=== PATIENT | female | born 1940 | race Caucasian/White ===

== ENCOUNTER → 2017-12-28 09:18 | Outpatient (CLI) | payer MEDICARE, OTHER, SELFPAY ==
--- NOTE | 2017-12-28 10:00 | MRI_ITS ---
STUDY: MRI LEFT KNEE REASON FOR EXAM: Anterior knee pain, instability, no specific injury. TECHNIQUE: Standardized fat and water weighted pulse sequences were obtained in all 3 orthogonal planes. COMPARISON: Radiographs 07/14/2017. FINDINGS: There is a horizontal tear of the inferior articular surface/free margin of the posterior horn of the medial meniscus (proton-density sagittal images 11-15) and tear/degeneration of the posterior body of the medial meniscus (T2 coronal images 16, 17). There is arthrosis of the medial femorotibial compartment with chondral thinning (T2 sagittal image 9) and slight subchondral bone edema. Normal medial collateral ligamentous complex (MCL). Normal distal semimembranosus, gracilis and semitendinosus tendons. Normal lateral meniscus. Normal hyaline cartilage of the lateral femorotibial compartment. Normal lateral femoral condyle and tibial plateau. Normal proximal tibiofibular articulation. Normal lateral collateral (fibular) ligament. Normal popliteus tendon. Normal biceps femoris tendon. Normal anterior cruciate ligament (ACL). Normal posterior cruciate ligament (PCL). Normal congruent patellofemoral articulation. Normal hyaline cartilage of the patellofemoral compartment. Normal medial and lateral patellar retinaculum. Normal quadriceps tendon. Normal patellar tendon. Normal Hoffa's fat pad. There is a small joint effusion. There is a thin medial patellar plica. There is a popliteal cyst measuring 5 cm in length (T2 sagittal images 7-10). There is mild edema in the subcutis adipose space. The otherwise visualized osseous structures are unremarkable. MRI/Lower Ext Joint Only (Routine) IMPRESSION: Medial meniscal tear/degeneration. Arthrosis of the medial femorotibial compartment. Small joint effusion. Popliteal cyst. Electronically Signed: Sandip Harris MD at 11:39 EST Tel , Service support ,
== END ==
PROVIDERS: Family Provider Family Medicine; PCP Family Medicine; Visit Provider Orthopaedic Surgery
DX: M25.569 Pain in unspecified knee (principal); M71.20 Synovial cyst of popliteal space [Baker], unspecified knee; M25.469 Effusion, unspecified knee
CPT/HCPCS: 73721

== ENCOUNTER → 2018-01-26 12:03 | Outpatient (CLI) | payer MEDICARE, OTHER, SELFPAY ==
--- NOTE | 2018-01-26 12:10 | RAD_ITS ---
STUDY: X-RAY CHEST REASON FOR EXAM: Female, 77 years old. Shortness of breath. TECHNIQUE: PA and lateral views of the chest. COMPARISON: 09/26/2013. FINDINGS: The lungs are somewhat hyperinflated. No focal infiltrate is seen. There is no demonstrated pleural abnormality. Normal size heart. Normal mediastinum and demario. Normal visualized pulmonary arteries. There is mild atherosclerotic tortuosity of the aortic arch and descending thoracic aorta. There are mild degenerative changes of the visualized thoracic spine. Normal visualized ribs, clavicles, and shoulders. There is no demonstrated abnormality of the visualized soft tissue structures of the upper abdomen. RAD/Chest PA and Lateral IMPRESSION: No active pulmonary disease. Electronically Signed: Andi Bonilla MD at 12:26 EDT Tel , Service support ,
== END ==
PROVIDERS: Family Provider Family Medicine; PCP Family Medicine; Visit Provider Family Medicine
DX: J44.1 Chronic obstructive pulmonary disease with (acute) exacerbation (principal)
CPT/HCPCS: 71046

== ENCOUNTER → 2018-09-03 12:26 | Outpatient (CLI) | payer MEDICARE, OTHER, SELFPAY ==
[2018-08-08 10:09] VITALS: BP 206/100; PULSE 99; RESP 16; TEMP 36.7; O2SAT 99; BMI 32.1
== END ==
PROVIDERS: Family Provider Family Medicine; PCP Family Medicine; Referring Provider Orthopaedic Surgery; Visit Provider Orthopaedic Surgery
PROC: (CPT 29870; principal; 2018-08-08 11:05)
DX: Z00.00 Encounter for general adult medical examination without abnormal findings (principal)
CPT/HCPCS: J7120; J3490

== ENCOUNTER 2018-10-15 09:56 | Day surgery (SDC) | payer MEDICARE, OTHER, SELFPAY ==
[2018-08-08 10:09] VITALS: BMI 32.1
[2018-10-15 10:18] VITALS: BP 146/96; PULSE 105; RESP 16; TEMP 37.3; O2SAT 94; BMI 31.8
[2018-10-15] MEDS: Cefazolin 2 GM in 0.9% Normal Saline 100 ML IV (12:22)
--- NOTE | 2018-10-15 13:13 | DCINST_ITS ---
Discharge Diet: No Restrictions - wbat left leg, remove dressings in 4 days and apply bandaids to incision sites, may get incision wet after 4 days, follow up in 2 weeks, call with concerns Discharge Activity: May Not Drive May shower in (days): 1 Ice area for (Minutes): 20 - Every hour while awake. Weight Bearing Status: Weight bearing as tolerated Keep extremity elevated above heart level: Operative Extremity Call your doctor if your incision/area has: Continuous Slow Oozing, Sudden Increased Bleeding, Increased Pain/ Swelling, Increased Redness, Foul Smelling Discharge Call your doctor if you observe: Fever of 101 or Higher, Coldness, Increased Pain, Numbness or Tingling, Change in Color, Calf discomfort Allergies/Adverse Reactions: Allergies No Known Allergies Allergy (Verified 10/12/18 11:59) Medications to take at Discharge levothyroxine 75 mcg tablet 75 mcg PO DAILY 12/14/17 multivitamin tablet 1 tab PO QDAY 12/14/17 Budesonide/Formoterol 160/4.5 [Symbicort 160/4.5 Mcg Inhaler (SP)] 2 puff INHALATION QHS 08/01/18 losartan 100 mg-hydrochlorothiazide 12.5 mg tablet 1 tab PO DAILY 10/04/18 Primary Care Physician: Katherin Aguirre MD [Primary Care Provider] - Test Results: Test results from this visit will be discussed in further detail at your follow- up appointment, if applicable. Please Follow Up With: Faviola Gamez, - [phone]
--- NOTE | 2018-10-15 13:13 | PCM.OPRPT ---
Report of Operation Date of Procedure: 10/15/18 Pre-Operative Diagnosis: left knee osteoarthritis, medial and lateral meniscus tears, synovitis Post-Operative Diagnosis: same Surgery/Procedure Performed:: salk, pmm, plm, extensive synovectomy boarding kennel or cattery operator: Hugo Ramos Type of Anesthesia:: General Anesthesiologist: Abdulaziz Atwood Estimated Blood Loss (mL): min Fluids Replaced: 1400cc lr Description of Procedure: Preop note Patient is a 77-year-old female well-known to me in clinic. Patient has left medial knee pain instability locking and clicking. MRI confirms degenerative disease of the left knee as well as an unstable medial meniscus tear. Risks benefits and alternatives surgery discussed with patient. Risks include but not limited to blood loss, blood clot, infection, neurovascular injury, failure procedure, loss of life and loss of limb. Patient is aware would like proceed with left knee arthroscopy repair is indicated. Please also note that we did discuss the patient is most likely a candidate for total knee arthroplasty however patient states she is not ready for that at this time would like to attempt a knee arthroscopy to buy her some time. Operative note Patient seen and examined preoperative holding area. Left knee was marked. Patient brought to the operative room placed supine on the operating table. Anesthesia signed and antibiotics were measured. The left leg was prepped and draped in usual sterile fashion with tourniquet around her upper thigh. All bony promises well-padded SCDs placed on her contralateral limb. We marked out her incisions for anterior lateral anteromedial portal placement. The left leg was then elevated exsanguinated tourniquet was raised her pressure of 2 3250 to start and then 300 midway through the case that she was bleeding her blood pressure is a little high. Timeout was performed. Created an anterior lateral portal with an 11 blade. We then medial to the able to visualize the patella femoral joint. She had extensive synovitis anterior medial and anterior lateral. We created an anterior medial portal under direct visualization. We resected the synovitis in the anterior lateral anteromedial gutters extensively with a shaver and a burner. We then were able to visualize the unstable medial meniscus tear. She had a mid body meniscus tear as well as a posterior horn as well as interstitial interbody meniscus tear extending from the posterior horn to the mid body. She also had grade 4 eburnated changes on the tibial plateau medially that was about a 3 x 2 cm lesion as well as had chondral grade 3 chondral malacia throughout her entire lateral femoral condyle and a kissing lesion on the left medial aspect of the medial femoral condyle as well. Her ACL was intact as well as her PCL. Her lateral femoral condyle lateral tibial plateau were intact stable probing she had an unstable degenerative tear at the mid body of the lateral meniscus which was debrided with a shaver and a basket to a stable rim. We then reinserted a probe in both medial lateral meniscus to ensure that they were stable to probing which they were. We irrigated the knee with copious amounts of sterile saline tourniquet was dropped for total working time of 35 minutes. Sterile dressings during the portals were closed with interrupted 4-0 nylon and sterile dressings were applied. She tolerated tolerated procedure well there are no comp occasions transferred to recovery room in stable condition. Next Postoperative note Weight-bear as tolerated Prescription the hospital pharmacy next We will give pictures to patient in 2 weeks Call with increased pain numbness tingling or further issues arise next This note was generated with [employer] dictation software. It may contain incorrect words, spelling, and punctuation that were not noted in checking the note before signing.
[2018-10-15] MEDS: Bupiv/Epi 0.5% Mpf 30 ML Vial (13:16)
[2018-10-15] MEDS: Mupirocin Ointment 22gm Tube 1 APPLIC (13:18)
[2018-10-15 13:31] VITALS: BP 146/96; BP 158/77; PULSE 85; RESP 16; TEMP 36.1; O2SAT 100
[2018-10-15 13:45] VITALS: BP 146/96; BP 151/84; PULSE 88; RESP 16; O2SAT 100
[2018-10-15 14:00] VITALS: BP 146/96; BP 162/76; BP 171/87; PULSE 88; PULSE 90; RESP 16; TEMP 36.7; O2SAT 100; O2SAT 99
--- NOTE | 2018-10-15 14:15 | SUR.PHASEI ---
PACU DISCHARGE SUMMARY DOCUMENTED AT 1415, UNABLE TO EDIT TIME
[2018-10-15 15:20] VITALS: BP 146/96; BP 152/78; PULSE 94; RESP 16; TEMP 37.1; O2SAT 97
== END 2018-10-15 15:35 | disposition home or self-care (01) ==
LOC: SDC 09:58 → AC 09:59
PROVIDERS: Family Provider Family Medicine; PCP Family Medicine; Referring Provider Orthopaedic Surgery; Visit Provider Orthopaedic Surgery
PROC: (CPT 29870; principal; 2018-10-15 11:15)
DX: M17.12 Unilateral primary osteoarthritis, left knee (principal); M77.12 Lateral epicondylitis, left elbow; M23.307 Other meniscus derangements, unspecified meniscus, left knee; M65.9 Synovitis and tenosynovitis, unspecified; G47.61 Periodic limb movement disorder; J44.9 Chronic obstructive pulmonary disease, unspecified; Z87.891 Personal history of nicotine dependence
CPT/HCPCS: 01400; 29881; J7120

== ENCOUNTER → 2019-02-21 15:25 | Outpatient (CLI) | payer MEDICARE, OTHER, SELFPAY ==
[2019-02-21 15:07] VITALS: BMI 31.8
--- NOTE | 2019-02-21 15:28 | RAD_ITS ---
STUDY: X-RAY - LEFT KNEE REASON FOR EXAM: Female, 78 years old. Pain TECHNIQUE: 4 view(s) of the knee. COMPARISON: None. FINDINGS: Normal visualized distal femur. Normal visualized proximal tibia and fibula. Normal proximal tibiofibular articulation. There is narrowing of the medial femorotibial compartment. Normal lateral femorotibial compartment. Normal patellofemoral articulation. Minimal suprapatellar fluid with questionable focal gas pockets. The soft tissue structures are unremarkable. RAD/Knee 4 or More Views IMPRESSION: There is narrowing of the medial femorotibial compartment. Minimal suprapatellar fluid with questionable focal gas pockets. Electronically Signed: Nolan Moe DO at 8:12 EDT Tel [phone], Service support ,
== END ==
PROVIDERS: Family Provider Family Medicine; PCP Family Medicine; Referring Provider Orthopaedic Surgery; Visit Provider Orthopaedic Surgery
DX: M17.12 Unilateral primary osteoarthritis, left knee (principal)
CPT/HCPCS: 73564

== ENCOUNTER 2019-03-25 10:30 | Outpatient (RCR) | payer MEDICARE, OTHER, SELFPAY ==
[2018-11-30 13:06] VITALS: BMI 31.8
--- NOTE | 2019-01-01 13:51 | HP.PTEVAL ---
Patient's Visit Information MARIA ELENA THOMPSON is a 78 year old F referred to Physical Therapy by Faviola Gamez DO with a diagnosis of DSA of the left LE 10/15/19. Date of Evaluation: 01/01/19 Physical Therapist: Candace Ling DPT - Visit Plan Frequency: 3x /Week Duration: 3 Weeks Plan: DSA 10/15/18- Straight cane ambulation in clinic with gait belt with progression to no AD- focus on LE and core s/s to promote functional mobility. - Subjective Findings: Wear and tear- MRI showed Meniscal tear- went in for a DSA 10/15/18. Just got a brace a few weeks ago. Did not do any exercise after surgery and felt she needed to come in. Fully I prior to surgery- slow and balance was not the best. Has been using the walker since surgery. Does not use it in the bedroom and kitchen. Goes up/down stairs recip then has backed off and its now sore so she does them one at a time. The medial side of the knee is uncomfortable. Worst: 2/10 Agg: stairs and being up on it. Best: 0/10 Eases: sitting down. Describes the pain as grabbing and startles her. Sleep: not disturbed. Goes to see the PA tomorrow. Yesterday saw Dr. Burdick for her back he is a chiropractor. Wears the brace when she is up and moving but not around her house. Does not really notice a difference when she wears the brace. Looking to get more active- sits a lot and reads in the winter but wants to get back to gardening in the spring. PMHx/meds: no changes since surgery. No images since surgery. - Objective Posture: FH, RS, Increased kyphosis. Gait: with FWW- antalgic with walker pushed way out in front of her with a step through pattern and poor heel strike straight cane: step to pattern with SBA for safety due to lack of confidence- poor heel strike slightly antalgic. Stairs: non recip with 2 HR- UE A. HR/TR: able with UE A. SLS: 5 sec then LOB and requires UE A on the wall. Palpation: not tender. ROM: 15-115 degrees with pain at end range extension. Strength: ankle: 5/5, Knee: 4+/5 Hip: 4/5 throughout Core: fair. Flex: HS: severe, Gastroc: mod - Goals Goal 1:: Patient will be I with HEP and progression Goal Time Frame: 4-6 Weeks Goal 2:: Patient will demo 0-125 degrees of ROM in the left knee Goal Time Frame: 4-6 Weeks Goal 3:: Patient will ambulate >300 feet with a normalized gait pattern and LRD Goal Time Frame: 4-6 Weeks Goal 4:: Patient will asc/desc 8 recip with 1 HR and good control Goal Time Frame: 4-6 Weeks Goal 5:: Patient will demo 5/5 strength in all deficit areas Goal Time Frame: 4-6 Weeks - Rehabilitation Potential Physical Therapy Diagnosis: Patient presents with hypomobility- she has decreased ROM, strength and muscular endurance s/p DSA of the left knee 10/15/18 leading to poor gait and decreased participation in ADL's. Rehabilitation Potential: Good - Anticipated Interventions Patient/Client Instruction: Educate patient on: Benefits of Fitness Program Therapeutic Exercise to Include: Strength training, Endurance training, Balance training, Agility training, Body mechanics, Postural training, Flexibilty training, Gait and locomotor training, Passive ROM, Active ROM, Dynamic Lumbar Stabilization For the Purpose of:: To improve muscle performance and motor function Functional Training to Include: ADL Training, Gait training For the Purpose of:: To improve ability to perform ADL's TENS: Yes Cryotherapy (ice pack, ice massage): Yes Thermo therapy (hot pack): Yes Ultrasound (thermal/non thermal): No Thank you for the opportunity to evaluate your patient. For Medicare and Medicare HMO plans, please review the plan of care and approve it. It will need to be FAXED BACK to us at [phone] for Medicare purposes. For Medicare only, by signing this I certify the plan of care. Please let me know if there are questions or concerns regarding this plan of care. Physician Signature: Date:
--- NOTE | 2019-01-25 11:21 | HP.PTREVAL ---
Faviola Gamez, DO, It has been my pleasure to treat MARIA ELENA THOMPSON over the last 9 visits for DSA of the left LE 10/15/19. Please see the progress note below for an update on the physical therapy plan of care! Subjective: Patient reports that she is unsure where she is supposed to be- soreness is not stopping her from doing things. It more startles her than anything- feels movement in her knee. Krish wanted her to come back after therapy. Uses her walker about 50% of the time in her home. She fears falling. Objective/Function: Posture: FH, RS, Increased kyphosis. Gait: with FWW- slow but good pattern-step through straight cane: step to pattern slightly decreased stance on LE. Stairs: recip with 2 HR and UE A for propulsion and control. HR/TR: able with UE A. SLS: 10 sec then LOB and requires UE A on the wall. Palpation: not tender. ROM: 5-115 degrees with pain at end range extension. Strength: ankle: 5/5, Knee: 4+/5 Hip: 4/5 throughout Core: fair. Flex: HS: mod, Gastroc: mod Plan Plan: Continue 2-3x a week for 3 weeks Goals Goal 1:: Patient will be I with HEP and progression Goal Time Frame: 4-6 Weeks Goal Progress: Progressing Goal 2:: Patient will demo 0-125 degrees of ROM in the left knee Goal Time Frame: 4-6 Weeks Goal Progress: Progressing Goal 3:: Patient will ambulate >300 feet with a normalized gait pattern and LRD Goal Time Frame: 4-6 Weeks Goal Progress: Progressing Goal 4:: Patient will asc/desc 8 recip with 1 HR and good control Goal Time Frame: 4-6 Weeks Goal Progress: Progressing Goal 5:: Patient will demo 5/5 strength in all deficit areas Goal Time Frame: 4-6 Weeks Anticipated Interventions Patient/Client Instruction: Educate patient on: Benefits of Fitness Program Therapeutic Exercise to Include: Strength training, Endurance training, Balance training, Agility training, Body mechanics, Postural training, Flexibilty training, Gait and locomotor training, Passive ROM, Active ROM, Dynamic Lumbar Stabilization For the Purpose of:: To improve muscle performance and motor function Functional Training to Include: ADL Training, Gait training For the Purpose of:: To improve ability to perform ADL's TENS: Yes Cryotherapy (ice pack, ice massage): Yes Thermo therapy (hot pack): Yes Ultrasound (thermal/non thermal): No Please do not hesitate to contact me at [phone] by phone or if you have questions or concerns regarding this new plan of care! Sincerely, ANDRES PadgettT
--- NOTE | 2019-03-25 10:48 | HP.PTDCSUM_ITS ---
HP - PT D/C Summary It has been my pleasure to treat MARIA ELENA THOMPSON under orders from Faviola Gamez DO, for the diagnosis of DSA of the left LE 10/15/19 for a total of 18 visit(s). Discharge Date: Please see the following information for a summary of their discharge status. - Subjective Subjective: Patient reports that she is miserable at this time- she has been back on the walker since trying to go down the stairs. She thinks that she needs a total knee replacement. - Pain LEFT KNEE Pain Intensity (Out of 10): 0 - Objective Objective/Function: Patient is back to using a walker for mobility and has d ecreased stance on the left LE- poor heel/toe pattern. ROM is fully and strength in 4+/5 with manual muscle testing. Functionally patient does not use the left LE- unable to descend stairs even a 4 step due to fear and states just can't do it. Recommendation at this time is to return to MD for further evaluation. - Goals Goal 1:: Patient will be I with HEP and progression Goal Progress: Progressing Goal 2:: Patient will demo 0-125 degrees of ROM in the left knee Goal Progress: Progressing Goal 3:: Patient will ambulate >300 feet with a normalized gait pattern and LRD Goal Progress: Progressing Goal 4:: Patient will asc/desc 8 recip with 1 HR and good control Goal Progress: Progressing Goal 5:: Patient will demo 5/5 strength in all deficit areas - Plan Plan: Continue 2x a week 4 weeks - D/C Information If there are questions or concerns regarding this patient's physical therapy, please feel free to call me at [phone]. Thank you for the referral of this patient. Sincerely, Candace Ling DPT
== END 2019-03-25 19:00 | disposition home or self-care (01) ==
LOC: PT 10:30
PROVIDERS: Family Provider Family Medicine; PCP Family Medicine; Referring Provider Orthopaedic Surgery; Visit Provider Orthopaedic Surgery
DX: Z98.890 Other specified postprocedural states (principal)
CPT/HCPCS: 97110; 97161; 97164

== ENCOUNTER → 2019-04-09 09:17 | Outpatient (CLI) | payer MEDICARE, OTHER, SELFPAY ==
[2019-02-21 15:07] VITALS: BMI 31.8
[2019-04-09 11:42] LABS: Anion Gap 8 (5-15); BUN 19 mg/dL (7-18); BUN/Creat Ratio 15.6 RATIO (10-20); Calcium,Total 9.3 mg/dL (8.5-10.1); Chloride 105 mmol/L (98-107); Creatinine, Serum 1.22 mg/dL (0.55-1.02); EST Glomerular Filtration Rate 45 mL/min (>60); Est Glom Filt Rate - Afr Amer 55 mL/min (>60); Glucose 98 mg/dL (74-106); Potassium 3.6 mmol/L (3.5-5.1); Sodium Level 142 mmol/L (136-145); Thyroid Stim Hormone (TSH) 2.24 uIU/mL (0.358-3.74)
== END ==
PROVIDERS: Family Provider Family Medicine; PCP Family Medicine; Referring Provider Nurse Practitioner Family; Visit Provider Nurse Practitioner Family
DX: E03.9 Hypothyroidism, unspecified (principal)
CPT/HCPCS: 36415; 80048; 84443

== ENCOUNTER 2019-07-09 09:26 | Inpatient (IN) | payer MEDICARE, OTHER, SELFPAY ==
[2019-06-17 11:19] VITALS: BMI 31.8
[2019-06-26 10:41] VITALS: BMI 31.8
[2019-07-02 13:23] VITALS: BP 141/78; PULSE 78; RESP 16; TEMP 36.2; O2SAT 96; BMI 32.1
--- NOTE | 2019-07-02 13:35 | SDCEKG_ITS ---
Test Reason : Blood Pressure : / mmHG Vent. Rate : 071 BPM Atrial Rate : 071 BPM P-R Int : 134 ms QRS Dur : 076 ms QT Int : 382 ms P-R-T Axes : 080 030 039 degrees QTc Int : 415 ms Normal sinus rhythm Normal ECG Confirmed by VIVEK WARD ([id number]), material expeditor MARYAN MORROW ([id number]) on 07/10/2019 8:22:57 AM Referred By: Orion Diaz Confirmed By:VIVEK WARD
[2019-07-02 14:47] LABS: Hematocrit 41.3 % (37-47); Hemoglobin 13.1 g/dL (12.0-15.0); Mean Corp Hgb Conc 31.7 g/dL (32-36); Mean Corpuscular Hgb 30.5 pg (27.0-32.0); Mean Platelet Vol. 12.4 fl (6.2-12.0); Platelet Count 202 K/mm3 (150-450); RBC Distribution Width CV 12.2 % (11.6-14.6); White Blood Count 8.6 K/mm3 (4.4-11.0)
[2019-07-02 15:26] LABS: Anion Gap 6 (5-15); BUN 15 mg/dL (7-18); BUN/Creat Ratio 11.5 RATIO (10-20); Calcium,Total 9.1 mg/dL (8.5-10.1); Chloride 109 mmol/L (98-107); EST Glomerular Filtration Rate 42 mL/min (>60); Est Glom Filt Rate - Afr Amer 51 mL/min (>60); Estimated Creatinine Clearance 34.68 ml/min; Glucose 90 mg/dL (74-106); Potassium 3.9 mmol/L (3.5-5.1); Sodium Level 144 mmol/L (136-145); Thyroid Stim Hormone (TSH) 2.08 uIU/mL (0.358-3.74)
[2019-07-09] VITALS (12 sets, daily range): BP systolic 118–165; BP diastolic 65–89; PULSE 75–85; RESP 14–18; TEMP 35.8–37.1; O2SAT 95–100; BMI 32.1
[2019-07-09] MEDS: Gabapentin 600 MG Tablet PO (10:02)
[2019-07-09] MEDS: Acetaminophen 500 MG Tablet 1000 MG PO ×2 (10:03→21:08)
[2019-07-09] MEDS: Lactated Ringers 1,000 ML 100 ML IV ×2 (10:06→21:08)
[2019-07-09] MEDS: Magnesium Sulfate 4gm/100mL 4 GM/100 ML IV.SOLN. IV (10:07)
[2019-07-09 10:16] LABS: Bedside Glucose 112 mg/dL (70-110)
[2019-07-09] MEDS: dexAMETHasone 10 MG/ML Vial IV (11:20)
[2019-07-09] MEDS: Scopolamine 1mg/72hr Patch 1 PATCH TRANSDERM. (11:20)
[2019-07-09] MEDS: Cefazolin 2 GM in 0.9% Normal Saline 100 ML IV ×2 (12:23→21:08)
--- NOTE | 2019-07-09 12:32 | PCM.HP.BLA ---
History and Physical Date of Admission: 07/09/19 Intake Vital Signs 06/17/19 Body Mass Index (BMI) 31.8 Intake Visit Reasons: LEFT KNEE Chief Complaint: left knee Allergies No Known Allergies Allergy (Verified 01/02/19 11:06) Medications levothyroxine 75 mcg tablet 75 mcg PO DAILY 12/14/17 [History Confirmed 06/17/19] multivitamin tablet 1 tab PO QDAY 12/14/17 [History Confirmed 06/17/19] Budesonide/Formoterol 160/4.5 [Symbicort 160/4.5 Mcg Inhaler (SP)] 2 puff INHALATION QHS 08/01/18 [History Confirmed 06/17/19] losartan 100 mg-hydrochlorothiazide 12.5 mg tablet 1 tab PO DAILY 10/04/18 [History Confirmed 06/17/19] PFS Medical History (Updated 10/15/18 @ 13:17 by Faviola Gamez DO) COPD (chronic obstructive pulmonary disease) (Acute) History of hysterectomy (Inactive) Surgical History (Updated 10/25/18 @ 13:52 by Katherin Barron) h/o left knee scope (Acute) Family History (Updated 12/14/17 @ 08:53 by Katherin Barron) Mother CVA (cerebral vascular accident) Brother Kidney disease Social History (Updated 06/17/19 @ 12:45 by Orion Diaz DO) Smoking Status: Former smoker pack-years: 57 alcohol intake: never HPI LEFT KNEE: Details: Parts of this documentation were recorded by a scribe, this documentation accurately reflects the service provided and the decisions made by nd, Orion Diaz DO 06/17/19 0752. MARIA ELENA THOMPSON is a 78 year old F here today for referral from Dr. Gamez for left knee for possiable TKA. patient has been having medial sided knee pain for a few months. PAtient had a steroid injection in 02/2019 and states this was onyl effective for 2 weeks then she started having pain agian in PT. Ortho Exam Left Knee Skin/Wound: No ecchymosis, No erythema, No swelling Homans Sign: No Knee ROM: Yes ROM-Extension -20 to 0, No ROM-Flexion 0-140 (120) Examination: Yes med jt line tenderness Stability: NML: Anterior Drawer, NML: Posterior Drawer, NML: Valgus 30, NML: Varus 30 Patellar Tilt Normal: Yes KNEE: no joint effusion no s/sx of infection has a small healing blister of the dorsum of her left foot no s/sx of infection. Assessment & Plan Problems 1. Primary osteoarthritis of left knee M17.12 Plan Obtained X-rays of patient's left knee. Personally reviewed x-rays. There is no obvious fracture, dislocation, or lucency noted. Patient educated that she does have bone on bone OA of the left knee. Has tried PT, Aleve, bracing and steroid injection which where not effective. Patient educated that her next steps would be a left TKA. Reviewed the pre-operative plans with the patient. Risks and benefits of the procedure were fully explained, including but not limited to infection, neurovascular injury, continued pain, arthritis, stiffness, need for further surgery, re-injury, DVT, PE, general risks of anesthesia, and loss of limb or life. The patient understands all the risks and does wish to proceed with written consent. Patient educated that she may go to rehab facility or go home post op for home PT, that is her choice. Educated that she will be on blood thinner after surgery to reduce risk of blood clots. Educated that the most important part of the knee replacement will be ROM. Given the choice to do Iovera tx 2 weeks prior to surgery, explained this tx. Patient wishes to proceed with Iovera as well as the surgery. Follow up 2 weeks post op or sooner if pain, swelling, numbness or associated symptoms, or concerns develop. All questions answered. Patient in agreement of plan. Coding Level of Care Code Off vis,est,level 3 Diagnoses Primary osteoarthritis of left knee M17.12 I have re-examined the patient. There are no clinical changes since date of exam I have re-examined the patient. There are no clinical changes since date of exam
[2019-07-09] MEDS: Morphine 4 MG/ML Syringe (13:30)
[2019-07-09] MEDS: Bupivacaine 0.5% PF 10 ML VIAL (13:30)
[2019-07-09] MEDS: Epinephrine (1 mg/ml) 1 MG/ML VIAL (13:30)
--- NOTE | 2019-07-09 15:05 | RAD_ITS ---
STUDY: X-RAY - LEFT KNEE REASON FOR EXAM: Female, 78 years old. Postop TECHNIQUE: 2 view(s) of the knee. COMPARISON: 02/21/2019 FINDINGS: Status post left knee arthroplasty. No evidence of acute hardware failure or loosening. Expected postoperative soft tissue changes. No fracture or dislocation. RAD/Knee 1 or 2 Views IMPRESSION: As above Electronically Signed: Jimmy Gautam DO at 19:38 EDT Tel , Service support ,
[2019-07-09] MEDS: Ondansetron 4 MG/2 ML Vial IV (17:20)
[2019-07-09] MEDS: Budesonide Respules 0.5 MG/2 ML AMPUL.NEB. INHALATION (19:26)
[2019-07-09] MEDS: Albuterol 2.5 MG/3 ML VIAL.NEB. INHALATION (19:26)
[2019-07-09] MEDS: Senna/Docusate Sodium 1 Tablet 2 TABLET PO (21:08)
[2019-07-10] VITALS (7 sets, daily range): BP systolic 107–132; BP diastolic 45–72; PULSE 72–84; RESP 16–18; TEMP 36.6–37; O2SAT 93–98
[2019-07-10] MEDS: Acetaminophen 500 MG Tablet 1000 MG PO ×3 (05:11→21:08)
[2019-07-10] MEDS: Levothyroxine 75 MCG Tablet PO (05:11)
[2019-07-10] MEDS: Cefazolin 2 GM in 0.9% Normal Saline 100 ML IV (05:13)
[2019-07-10] MEDS: Lactated Ringers 1,000 ML 125 ML IV (05:13)
[2019-07-10] MEDS: Albuterol 2.5 MG/3 ML VIAL.NEB. INHALATION ×2 (06:31→19:05)
[2019-07-10] MEDS: Budesonide Respules 0.5 MG/2 ML AMPUL.NEB. INHALATION ×2 (06:31→19:05)
[2019-07-10 06:35] LABS: Hematocrit 39.7 % (37-47); Hemoglobin 12.3 g/dL (12.0-15.0); Mean Corpuscular Hgb 30.2 pg (27.0-32.0); Mean Corpuscular Volume 97.5 fL (81-99); Mean Platelet Vol. 12.8 fl (6.2-12.0); Platelet Count 170 K/mm3 (150-450); RBC Distribution Width SD 43.3 fl (35.1-43.9); Red Blood Count 4.07 M/mm3 (4.2-5.4); White Blood Count 14.4 K/mm3 (4.4-11.0)
[2019-07-10 07:04] LABS: Anion Gap 5 (5-15); BUN 17 mg/dL (7-18); BUN/Creat Ratio 11.9 RATIO (10-20); Calcium,Total 8.5 mg/dL (8.5-10.1); Chloride 109 mmol/L (98-107); Creatinine, Serum 1.43 mg/dL (0.55-1.02); EST Glomerular Filtration Rate 38 mL/min (>60); Est Glom Filt Rate - Afr Amer 46 mL/min (>60); Estimated Creatinine Clearance 31.53 ml/min; Glucose 162 mg/dL (74-106); Potassium 4.5 mmol/L (3.5-5.1); Sodium Level 141 mmol/L (136-145)
[2019-07-10] MEDS: oxyCODONE 5 MG Tablet PO ×3 (07:42→18:47)
--- NOTE | 2019-07-10 10:00 | CASEMGMT ---
SHYANN MORIN Face to Face with patient for initial transition planning/care coordination assessment. SHYANN MORIN introduced self and role at [facility]. Patient sitting in chair, alert and oriented. Patient willing to participate in assessment and is able to answer all questions appropriately. Care providers, pharmacy, and demographics verified. Patient wishes to discharge to SNF or Rehab at discharge for additional therapy. Patient states she has no further needs or concerns at this time. SID Webber updated regarding request for SNF or Rehab. SID called inpatient rehab unit and they are able to accept the patient. SHYANN MORIN updated the patient regarding acceptance to inpatient rehab unit. PCP: Carla Specialists: uhsa Diaz; Hugo, urologist Preferred Pharmacy: [facility] Insurance: [facility] Prescription Benefit: yes Living Will/HPOA: es, son Alexey Mc HPOA LNOK: sons Living Arrangements: Patient lives alone in 1 story home with 1 step to enter the home. Patient was independent at home prior to surgery. Transportation: self/friend DME/HHC: Patient states she has shower chair, raised toilet seat, cane, walker, grab bars at home. NO previous SNF or HHC Disposition Plan: Inpatient rehab unit. Gabby DESAI, RN, CM
[2019-07-10] MEDS: Senna/Docusate Sodium 1 Tablet 2 TABLET PO ×2 (10:12→21:09)
[2019-07-10] MEDS: APIXABAN 2.5 MG TABLET PO ×2 (10:13→21:09)
[2019-07-10] MEDS: Losartan Potassium 100 MG Tablet PO (10:13)
[2019-07-10] MEDS: hydroCHLOROthiazide 12.5mg 12.5 MG PO (10:13)
[2019-07-10] MEDS: 0.9% Normal Saline 1,000 ML 100 ML IV ×2 (11:10→21:08)
--- NOTE | 2019-07-10 11:16 | PCM.CONS.GEN ---
Problem List (1) Status post total left knee replacement Status: Acute (2) Renal insufficiency Status: Chronic (3) COPD (chronic obstructive pulmonary disease) Status: Chronic (4) Hypothyroidism Status: Chronic (5) Hypertension Status: Chronic Reason for Consult Date of Consultation: 07/10/19 Reason for Consultation: Renal insufficiency. History of Present Illness: The patient is a 78 year old F with past medical history as mentioned above underwent elective left total knee replacement for left knee osteoarthritis and I am seeing this patient in consultation postoperatively for renal insufficiency. Patient underwent total left knee replacement yesterday, postoperative day 1. Today, she mentioned that her left knee is sore, pain is there but manageable. She denied any abdominal pain, flank pain, dysuria or hematuria. She denied frequent use of NSAIDs. She did mention that she had blood in her urine in the past and she was evaluated by urology with a CAT scans that did not show anything obvious. Upon revision of her chart, her creatinine was 1.2 on October, and her GFR at that time was not measured. This year, her creatinine was 1.22 on April, was 1.30 on June and 1.43 today. Her GFR has been declining as well. Patient has been on HCTZ and losartan since October, for hypertension. She has history of hypertension that was diagnosed in October 2018 and she has been on losartan and HCTZ since then and her pressure has been okay. She has history of COPD and she has been on Symbicort and she quit smoking years ago. She has history of hypothyroidism, has been on levothyroxine and her TSH was 2.08 last month. At this time, her vital signs are stable. Her routine blood work today remarkable for leukocytosis, creatinine of 1.43. Past Medical History Past Medical History (Chronic Problems): Chronic Problems (Last Updated 12/14/17 @ 08:53 by Katherin Barron) Renal insufficiency (Chronic) COPD (chronic obstructive pulmonary disease) (Chronic) Hypothyroidism (Chronic) Hypertension (Chronic) Medical History: Medical History (Last Updated 12/14/17 @ 08:53 by Katherin Barron) COPD (chronic obstructive pulmonary disease) J44.9 History of hysterectomy Z98.890, Z90.710 Allergies No Known Allergies Allergy (Verified 07/09/19 09:50) Home Medications: Ambulatory Orders Medication Instructions Recorded levothyroxine 75 mcg tablet 75 mcg PO DAILY 12/14/17 multivitamin tablet 1 tab PO QDAY 12/14/17 Budesonide/Formoterol 160/4.5 2 puff INHALATION QHS 08/01/18 [Symbicort 160/4.5 Mcg Inhaler (SP)] losartan 100 1 tab PO DAILY 10/04/18 mg-hydrochlorothiazide 12.5 mg tablet Surgical History: Surgical History (Last Updated 10/25/18 @ 13:52 by Katherin Barron) h/o left knee scope Surgical History: hysterectomy, total knee arthroplasty Psychiatric History: No pertinent psych hx 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 Lives: Spouse/ Significant Other Smoking Status: Former smoker Alcohol: None Drugs: None - *Family History Maternal Family History: Family History (Last Updated 12/14/17 @ 08:54 by Katherin Barron) Mother CVA (cerebral vascular accident) Brother Kidney disease History Items: No pertinent history Paternal Family History: Family History (Last Updated 12/14/17 @ 08:54 by Katherin Barron) Mother CVA (cerebral vascular accident) Brother Kidney disease History Items: No pertinent history Review of Systems Constitutional: Denies: Anorexia, Chills, Fever, Weakness Eyes: Denies: Blurred vision, Double vision, Drainage, Redness HEENT: Denies: Difficulty Hearing, Ear Pain, Eye Pain, Nasal Congestion, Sore Throat Cardiovascular: Denies: Chest Pain, Chest Pressure, Chest Tightness, Heaviness, Light Headedness, Palpitations, Syncope Respiratory: Denies: Cough, Pleuritic Pain, Shortness of Breath, Sputum production, Wheezing Gastrointestinal: Denies: Abdominal Pain, Constipation, Diarrhea, Nausea, Vomiting Genitourinary: Denies: Dysuria, Frequency, Hematuria Musculoskeletal: Reports: Joint Pain. Denies: Arm Pain, Back Pain, Foot Pain Skin: Denies: Dryness, Rash Neurological: Denies: Balance problems, Double vision, Change in Speech, Slurred speech, Confusion, Focal weakness, Headaches, Numbness Psychiatric: Denies: Anxiety, Depression Endocrine: Denies: Change in Body Habitus, Polydipsia, Polyuria Patient Problems: Active and Suspected Problems (Last Updated 10/25/18 @ 13:52 by Katherin Barron) Status post total left knee replacement (Acute) - Physical Exam General: Alert, Oriented x3, Cooperative, No apparent distress HEENT: Atraumatic, PERRLA, EOMI, Normocephalic Oral: Moist Mucosa, No Gingival or Mucosal Lesions/ Ulcerations Neck: Supple, No JVD, Negative Carotid Bruits, Trachea Midline, Thyroid Normal Size and Texture Lungs: Clear to auscultation, Normal air movement, No rhonchi, No wheeze, No rales Cardiovascular: Regular rate, Regular Rhythm, Normal S1, Normal S2, No murmurs, PMI Normal Abdomen: Bowel Sounds Present, Soft, Non Tender, Non-Distended, No Hepato-splenomegaly, Obese Extremities: No clubbing, No cyanosis, No edema Skin: No rashes, No breakdown Lymphatic: No Cervical, Supraclavicular, or Inguinal Adenopathy Neurological: Cranial nerves II-XII grossly intact, Motor Exam 5/5 strength throughout Psych/Mental Status: Normal Affect, Appropriate, Alert and oriented to time, place, person, mood and affect Vital Signs Temp Pulse Resp BP Pulse Ox 97.8 F 72 18 120/63 97 07/10/19 08:00 07/10/19 08:00 07/10/19 08:00 07/10/19 08:00 07/10/19 08:00 Oxygen Flow Rate (L/min) 1 Oxygen Delivery Method Room Air Weight: 208 lb 5.389 oz Body Mass Index (BMI) 32.1 Intake and Output for Last 24 Hours 07/08/19 07/09/19 07/10/19 23:59 23:59 23:59 Intake Total 1546.67 / 1846.67 1478.76 / 1478.76 Output Total 620 / 620 Balance 1546.67 / 1646.67 858.76 / 858.76 Laboratory Tests Past 24 Hrs 07/10/19 07/10/19 05:19 05:19 WBC 14.4 H RBC 4.07 L Hgb 12.3 Hct 39.7 MCV 97.5 MCH 30.2 MCHC 31.0 L RDW Std Deviation 43.3 RDW Coeff of Carlos 12.0 Plt Count 170 MPV 12.8 H Sodium 141 Potassium 4.5 Chloride 109 H Carbon Dioxide 27.0 Anion Gap 5 BUN 17 Creatinine 1.43 H Estim Creat Clear Calc 31.53 Est GFR (MDRD) Af Amer 46 L Est GFR (MDRD) Non-Af 38 L BUN/Creatinine Ratio 11.9 Glucose 162 H Calcium 8.5 Assessment/Plan All Active Problems (Last Updated 10/25/18 @ 13:52 by Katherin Barron) Status post total left knee replacement (Acute) This is a 78 years old female patient admitted for elective left total knee replacement for left knee osteoarthritis and I was consulted postoperatively for renal insufficiency. #1 renal insufficiency: Seems to be chronic but her GFR and creatinine has been declining. Probably due to HCTZ and losartan that patient has been on since October,. Her creatinine was 1.2 back in 2013, it is 1.43 today. Patient did mention that she had a history of microscopic hematuria in the past and she was evaluated by urology with CAT scans and no etiology identified. She had renal ultrasound back on December, that revealed normal size kidneys without evidence of kidney stones, hydronephrosis or hydroureter. Plan: IV fluids for hydration, hold HCTZ, repeat BMP tomorrow morning. No indication for imaging studies and I would recommend follow-up with her PCP as outpatient. #2 status post left total knee replacement: Postoperative day 1. Pain is manageable, she is on OxyIR PRN. Her vital signs are stable. Started on Eliquis 2.5 mg p.o. twice daily for DVT prophylaxis. #3 hypertension: Blood pressure stable, continue losartan, hold HCTZ as above. #4 hypothyroidism: TSH was normal last month, continue levothyroxine. #5 COPD: Stable, pulse ox is maintained on room air. Continue albuterol as needed, Pulmicort twice daily. Patient quit smoking years ago. #6 DVT prophylaxis: Continue Eliquis. This note was generated with [employer]ree dictation software. It may contain incorrect words, spelling, and punctuation that were not noted in checking the note before signing. Code Visit Inpatient E&M: 66798 Init Hosp L2
--- NOTE | 2019-07-10 11:47 | CASEMGMT ---
As per preadmission assessment, Alexey is pt's POA, and pt indicated that POA and LW are in the chart. The forms are not in the e-chart or in the paper chart. SW let pt know that the forms are not in the chart. Pt states she plans to make some changes to the forms and when she does will bring them in. SW provided blank forms to the pt with the number to the SW department, let her know that when she wants to complete the forms again she can call the SW dept and set up an appointment to do so. Pt states understanding, thanked SW for the information. JOELLE Somers
[2019-07-10] MEDS: Multivitamins,Therapeutic Tablet 1 TABLET PO (12:53)
--- NOTE | 2019-07-10 13:17 | PCM.PN.ORT ---
Patient Problems: Active and Suspected Problems (Last Updated 10/25/18 @ 13:52 by Katherin Barron) Status post total left knee replacement (Acute) Subjective: Patient seen and examined doing well no fevers chills nausea vomiting shortness of breath or chest pain - Physical Exam General: Alert, Oriented x3, Cooperative, No apparent distress Abdomen: - - Dressing clean dry and intact compartment soft neurovascular intact Vital Signs Temp Pulse Resp BP Pulse Ox 97.8 F 72 18 120/63 97 07/10/19 08:00 07/10/19 08:00 07/10/19 08:00 07/10/19 08:00 07/10/19 08:00 Oxygen Flow Rate (L/min) 1 Oxygen Delivery Method Room Air Weight: 208 lb 5.389 oz Body Mass Index (BMI) 32.1 Intake and Output for Last 24 Hours 07/08/19 07/09/19 07/10/19 23:59 23:59 23:59 Intake Total 1546.67 / 1846.67 2418.76 / 2418.76 Output Total 620 / 620 Balance 1546.67 / 1646.67 1798.76 / 1798.76 Laboratory Tests Past 24 Hrs 07/10/19 07/10/19 05:19 05:19 WBC 14.4 H RBC 4.07 L Hgb 12.3 Hct 39.7 MCV 97.5 MCH 30.2 MCHC 31.0 L RDW Std Deviation 43.3 RDW Coeff of Carols 12.0 Plt Count 170 MPV 12.8 H Sodium 141 Potassium 4.5 Chloride 109 H Carbon Dioxide 27.0 Anion Gap 5 BUN 17 Creatinine 1.43 H Estim Creat Clear Calc 31.53 Est GFR (MDRD) Af Amer 46 L Est GFR (MDRD) Non-Af 38 L BUN/Creatinine Ratio 11.9 Glucose 162 H Calcium 8.5 Medical Necessity - Tobacco Use Smoking Status: Former smoker Assessment/Plan All Active Problems (Last Updated 10/25/18 @ 13:52 by Katherin Barron) Status post total left knee replacement (Acute) Postop day #1 left total knee arthroplasty Acute renal insufficiency IV fluids hold hydrochlorothiazide per medicine consultation we will follow-up outpatient Repeat labs in a.m. DC planning rehab tomorrow
--- NOTE | 2019-07-10 14:23 | CASEMGMT ---
Social Work Note SHYANN Lanza updated this worker that pt is requesting to stay at [facility] for rehab. SW placed a call to Keke with [facility] and provided referral. Keke states she is able to accept pt whenever pt is medically cleared. SHYANN Lanza updated pt on acceptance to [facility]. Physician states pt is not medically cleared for discharge today and will be discharged tomorrow. Keke with [facility] updated on this. Plan: [facility] once medically cleared Gabby Webber ZIPPER SEWING MACHINE OPERATOR, MACHINE GUN MECHANIC
[2019-07-11 02:50] VITALS: BP 108/55; PULSE 91; RESP 18; TEMP 36.7; O2SAT 92
[2019-07-11] MEDS: Acetaminophen 500 MG Tablet 1000 MG PO (05:49)
[2019-07-11] MEDS: Levothyroxine 75 MCG Tablet PO (05:49)
[2019-07-11] MEDS: 0.9% NaCl Peripheral Flush Adult/Peds IV (05:49)
[2019-07-11 06:29] LABS: Hematocrit 33.9 % (37-47); Hemoglobin 10.6 g/dL (12.0-15.0); Mean Corp Hgb Conc 31.3 g/dL (32-36); Mean Corpuscular Hgb 30.8 pg (27.0-32.0); Mean Corpuscular Volume 98.5 fL (81-99); Mean Platelet Vol. 12.1 fl (6.2-12.0); Platelet Count 149 K/mm3 (150-450); RBC Distribution Width CV 12.5 % (11.6-14.6); Red Blood Count 3.44 M/mm3 (4.2-5.4); White Blood Count 10.4 K/mm3 (4.4-11.0)
[2019-07-11 06:37] LABS: Anion Gap 5 (5-15); BUN 21 mg/dL (7-18); BUN/Creat Ratio 14.5 RATIO (10-20); Chloride 113 mmol/L (98-107); Creatinine, Serum 1.45 mg/dL (0.55-1.02); EST Glomerular Filtration Rate 37 mL/min (>60); Est Glom Filt Rate - Afr Amer 45 mL/min (>60); Glucose 93 mg/dL (74-106); Potassium 4.1 mmol/L (3.5-5.1); Sodium Level 145 mmol/L (136-145)
[2019-07-11 06:50] VITALS: PULSE 87; RESP 16; O2SAT 92
[2019-07-11] MEDS: Albuterol 2.5 MG/3 ML VIAL.NEB. INHALATION (06:50)
[2019-07-11] MEDS: Budesonide Respules 0.5 MG/2 ML AMPUL.NEB. INHALATION (06:50)
[2019-07-11 08:45] VITALS: BP 113/51; PULSE 80; RESP 20; TEMP 36.9; O2SAT 95
--- NOTE | 2019-07-11 08:54 | PCM.PN.ORT ---
Patient Problems: Active and Suspected Problems (Last Updated 10/25/18 @ 13:52 by Katherin Barron) Status post total left knee replacement (Acute) Subjective: Seen and examined doing okay. Has pain. No fevers chills nausea vomiting shortness of breath chest pain - Physical Exam General: Alert, Oriented x3, Cooperative Vital Signs Temp Pulse Resp BP Pulse Ox 98.1 F 87 16 108/55 L 92 07/11/19 02:50 07/11/19 06:50 07/11/19 06:50 07/11/19 02:50 07/11/19 06:50 Oxygen Flow Rate (L/min) 1 Oxygen Delivery Method Room Air Weight: 208 lb 5.389 oz Body Mass Index (BMI) 32.1 Intake and Output for Last 24 Hours 07/09/19 07/10/19 07/11/19 23:59 23:59 23:59 Intake Total 1546.67 / 1846.67 4982.09 / 4982.09 993.33 / 993.33 Output Total 620 / 620 500 / 500 Balance 1546.67 / 1646.67 4362.09 / 4362.09 493.33 / 493.33 Laboratory Tests Past 24 Hrs 07/11/19 07/11/19 06:05 06:05 WBC 10.4 RBC 3.44 L Hgb 10.6 L Hct 33.9 L MCV 98.5 MCH 30.8 MCHC 31.3 L RDW Std Deviation 45.0 H RDW Coeff of Carlos 12.5 Plt Count 149 L MPV 12.1 H Sodium 145 Potassium 4.1 Chloride 113 H Carbon Dioxide 27.0 Anion Gap 5 BUN 21 H Creatinine 1.45 H Estim Creat Clear Calc 31.10 Est GFR (MDRD) Af Amer 45 L Est GFR (MDRD) Non-Af 37 L BUN/Creatinine Ratio 14.5 Glucose 93 Calcium 8.0 L Medical Necessity - Tobacco Use Smoking Status: Former smoker Assessment/Plan All Active Problems (Last Updated 10/25/18 @ 13:52 by Katherin Barron) Status post total left knee replacement (Acute) Stop day #2 left total knee Creatinine 1.45 today we will continue IV fluids for today and recheck labs in a.m. likely discharge to rehab tomorrow Edilson SCDs PASCUAL hose PT OT weightbearing as tolerated
[2019-07-11] MEDS: 0.45% Normal Saline 1,000 ML 100 ML IV (09:13)
[2019-07-11] MEDS: APIXABAN 2.5 MG TABLET PO (09:15)
[2019-07-11] MEDS: Senna/Docusate Sodium 1 Tablet 2 TABLET PO (09:15)
[2019-07-11] MEDS: oxyCODONE 5 MG Tablet PO (09:30)
[2019-07-11] MEDS: amLODIPine 5 MG Tablet PO (09:30)
--- NOTE | 2019-07-11 10:15 | CASEMGMT ---
Social Work Note Physician is discharging pt to [facility] today. SW placed a call to Keke with [facility] and updated her on this. Plan: [facility] today Gabby Webber TECHNICAL WRITING LEAD/MGR, LOG SCALER
--- NOTE | 2019-07-11 10:23 | NURSING ---
called report to Ruby in inpatient rehab. notified of discharge within the next 30 minutes.
--- NOTE | 2019-07-11 10:39 | PCM.PROGNOTE ---
Patient Problems: Active and Suspected Problems (Last Updated 10/25/18 @ 13:52 by Katherin Barron) Status post total left knee replacement (Acute) Subjective: Chief complaint: Follow-up after consultation for chronic kidney disease. Patient seen and examined. No acute events overnight. Left knee pain is manageable and she has been doing okay with physical therapy. She denies any significant complaints except from left knee pain and soreness. Her vital signs are stable. - Physical Exam General: Alert, Oriented x3, Cooperative, No apparent distress HEENT: Atraumatic, PERRLA, EOMI, Normocephalic Oral: Moist Mucosa, No Gingival or Mucosal Lesions/ Ulcerations Neck: Supple, No JVD, Negative Carotid Bruits, Trachea Midline, Thyroid Normal Size and Texture Lungs: Clear to auscultation, Normal air movement, No rhonchi, No wheeze, No rales, Diminished Cardiovascular: Regular rate, Regular Rhythm, Normal S1, Normal S2, No murmurs Abdomen: Bowel Sounds Present, Soft, Non Tender, Non-Distended, No Hepato-splenomegaly Extremities: No clubbing, No cyanosis, No edema Skin: No rashes, No breakdown, Incision Lymphatic: No Cervical, Supraclavicular, or Inguinal Adenopathy Neurological: Cranial nerves II-XII grossly intact, Neuro grossly intact Psych/Mental Status: Normal Affect, Appropriate Vital Signs Temp Pulse Resp BP Pulse Ox 98.5 F 80 20 H 113/51 L 95 07/11/19 08:45 07/11/19 08:45 07/11/19 08:45 07/11/19 08:45 07/11/19 08:45 Oxygen Flow Rate (L/min) 1 Oxygen Delivery Method Room Air Weight: 208 lb 5.389 oz Body Mass Index (BMI) 32.1 Intake and Output for Last 24 Hours 07/09/19 07/10/19 07/11/19 23:59 23:59 23:59 Intake Total 1546.67 / 1846.67 4982.09 / 4982.09 1700.00 / 1700.00 Output Total 620 / 620 500 / 500 Balance 1546.67 / 1646.67 4362.09 / 4362.09 1200.00 / 1200.00 Laboratory Tests Past 24 Hrs 07/11/19 07/11/19 06:05 06:05 WBC 10.4 RBC 3.44 L Hgb 10.6 L Hct 33.9 L MCV 98.5 MCH 30.8 MCHC 31.3 L RDW Std Deviation 45.0 H RDW Coeff of Carlos 12.5 Plt Count 149 L MPV 12.1 H Sodium 145 Potassium 4.1 Chloride 113 H Carbon Dioxide 27.0 Anion Gap 5 BUN 21 H Creatinine 1.45 H Estim Creat Clear Calc 31.10 Est GFR (MDRD) Af Amer 45 L Est GFR (MDRD) Non-Af 37 L BUN/Creatinine Ratio 14.5 Glucose 93 Calcium 8.0 L Medical Necessity - Tobacco Use Smoking Status: Former smoker Assessment/Plan All Active Problems (Last Updated 10/25/18 @ 13:52 by Katherin Barron) Status post total left knee replacement (Acute) This is a 78 years old female patient admitted for elective left total knee replacement for left knee osteoarthritis and I was consulted postoperatively for chronic kidney disease. #1 Stage III chronic kidney disease: Attributed to HCTZ and losartan that patient has been on since October,. Her creatinine was 1.2 back in 2013, it is 1.43 yesterday, it is 1.45 mg/dL today, remained almost the same. HCTZ discontinued, still on lisinopril. Blood pressure stable. She had renal ultrasound back on December, that revealed normal size kidneys without evidence of kidney stones, hydronephrosis or hydroureter. Plan: Continue IV fluids, discontinue losartan, start Norvasc for hypertension, repeat BMP in 1 to 2 days. #2 status post left total knee replacement: Postoperative day 2. Pain is manageable, she is on OxyIR PRN. Her vital signs are stable. She is on Eliquis 2.5 mg p.o. twice daily for DVT prophylaxis. Plan to DC to inpatient rehab today. #3 hypertension: Blood pressure stable, started on Norvasc, discontinue losartan and HCTZ. #4 hypothyroidism: TSH was normal last month, continue levothyroxine. #5 COPD: Stable, pulse ox is maintained on room air. Continue albuterol as needed, Pulmicort twice daily. Patient quit smoking years ago. #6 DVT prophylaxis: Continue Eliquis. This note was generated with Bill[employer]ation software. It may contain incorrect words, spelling, and punctuation that were not noted in checking the note before signing. Code Visit Inpatient E&M: 81750 Subs Hosp L2
--- NOTE | 2019-07-19 08:19 | OP.PCM_ITS ---
Report of Operation Date of Procedure: 07/09/19 Description of Surgical Findings:: Preoperative diagnosis: Left knee DJD Postoperative diagnosis: Same Procedure: Left total knee arthroplasty Implant: Margie triathlon cemented left asymmetric patella , polyethylene X3 size CS Anesthesia: Spinal with adductor canal block Tourniquet time: 60 minutes at 300 mmHg Complications: None Condition: Stable to PACU Estimated blood loss: 25 cc Indication for procedure: This is a 78-year-old female with long standing de generative joint disease of the knee who has failed conservative treatment and wished to proceed with elective total knee arthroplasty. Risk benefits and alternatives were reviewed including; risk of bleeding, infection, nerve artery and tissue damage, continued pain, postoperative stiffness, venous thromboembolism, need for postoperative rehabilitation, mechanical feel to the knee, and expected postoperative course. Procedure: The patient was met in the preoperative holding area. The operative extremity was identified by both patient and physician and was marked. Patient was met by anesthesia. An adductor canal block was placed by anesthesia postoperatively the patient was brought back to the operating room on a wheeled cart and transferred to the operating table in the supine position. Anesthesia was started. A well-padded tourniquet was placed on the operative extremity. The patient was prepped and draped in the usual sterile fashion. A timeout was called to ensure the proper patient procedure and extremity were being contemplated. An Esmarch was used to exsanguinate the extremity. The tourniquet was inflated. A 10 blade scalpel was used to make a midline incision down through the skin and subcutaneous tissue. Skin retractors placed. Bovie was used to perform meticulous hemostasis. full-thickness flaps were elevated medial and lateral along the joint capsule. A deep blade scalpel was used to perform a medial parapatellar arthrotomy. The knee was brought to full extension. A Bovie was used to release the soft tissues off the most proximal aspect of the medial tibial plateau a three-quarter inch curved osteotome was also used for this process. The infrapatellar fat pad was excised. The fat pad was excised partially anterior lateral portion the anterior medial was elevated from the femur. the patella was everted. The knee was brought into flexion. An intramedullary drill was used followed by flexible intramedullary guide armando. The distal femoral cutting block was placed and set to remove 8 mm of bone and 5 degrees of valgus. The block was secured with pins and an oscillating saw was used to complete the distal femoral cut. During this, and all bony cuts retractors were used to protect the collateral ligaments. At this point a femoral sizer was used to measure the AP dimension of the femur. The sizer block was pinned parallel to the epicondylar access for external rotation. The sizing block was removed and the appropriately sized 4-in-1 cutting block was placed over the previously made pinholes. It was checked with an christine wing and the block was secured with pins. An oscillating saw was used to complete the anterior cut followed by the posterior cut followed by the posterior chamfer cut followed by the anterior chamfer cut. The block was removed as well as the fragments. A ronguer was used to remove excess osteophytes. The medial and lateral meniscus were excised as well as the ACL. At this point a PCL retractor was placed and an intramedullary drill was passed down the tibial canal followed by a solid intramedullary guide armando. The tibial cutting block was attached and set to remove 9 mm of bone from the high side. This was checked with an external alignment drop armando for slope and tilt. It was pinned into place. An oscillating saw was used to complete the tibial plateau cut and the block was removed. A large osteotome was used to elevate the fragment and a Ashley and a Bovie were used to free the fragment from the surrounding soft tissue. A rongeur was once again used to remove osteophytes a lamina docket clerk was used to evaluate the posterior capsular structures. A three-quarter inch curved osteotome was used to remove posterior osteophytes. A spacer block was inserted in both extension and flexion to ensure adequate spacing. Trials were inserted full extension and flexion were achieved in varus and valgus stability throughout range of motion were seen, balancing techniques were performed. At this point the attention was turned towards the patella. A caliper was used to ensure sufficient bone stock to remove 10 mm of bone. A reamer was used to perform this task. Lug holes were made for the appropriate-sized patella. The patella trial was inserted and there was good patellar tracking with knee range of motion. The tibial baseplate was allowed to float into rotation and was ma rked on the tibial plateau with a Bovie. Lug holes were made in the femur and trials were removed. The tibial baseplate was then sized and its preparation was completed with a fin punch. The knee was thoroughly irrigated. A posterior capsular injection was performed with our standard cocktail. The knee was brought into flexion and irrigated again. The tibial baseplate was cemented. Excess cement was removed with curettes. The polyethylene component was inserted. The femoral component was cemented. The knee was brought into full extension and placed on a bump. The patellar component was cemented. At this point a Betadine rinse was placed and thoroughly irrigated after a few minutes. This was followed by an Iricept rinse which was allowed to sit for 1 minute and then thoroughly irrigated.At this point all gloves were changed. The knee was thoroughly irrigated the joint capsule was closed with #1 Ethibond. Tourniquet was let down followed by 0 Vicryl and 2-0 Vicryl in the subcutaneous tissues. followed by harshad in the skin. Dressing was applied in the form of Mepilex silver dressing web roll and an Rajan wrap from the foot to the groin. The patient tolerated the procedure well, all counts were correct patient was brought back to the PACU in stable condition.
== END 2019-07-11 11:15 | DRG 470 ==
LOC: MS3 07-10 06:19 → ACINP 07-10 06:29
PROVIDERS: Anesthesiology; Hospitalist; Admitting Provider Orthopaedic Surgery; Family Provider Family Medicine; PCP Family Medicine; Referring Provider Orthopaedic Surgery; Visit Provider Orthopaedic Surgery
PROC: 0SRD0J9 Replacement of Left Knee Joint with Synthetic Substitute, Cemented, Open Approach (ICD-10-PCS; CPT 27447; principal; 2019-07-09 10:55)
DX: M17.12 Unilateral primary osteoarthritis, left knee (principal); J44.9 Chronic obstructive pulmonary disease, unspecified; Z87.891 Personal history of nicotine dependence; E03.9 Hypothyroidism, unspecified; I12.9 Hypertensive chronic kidney disease with stage 1 through stage 4 chronic kidney disease, or unspecified chronic kidney disease; N18.3 Chronic kidney disease, stage 3 (moderate); Z96.652 Presence of left artificial knee joint; Z79.01 Long term (current) use of anticoagulants; Z79.51 Long term (current) use of inhaled steroids; Z90.710 Acquired absence of both cervix and uterus; T50.2X5A Adverse effect of carbonic-anhydrase inhibitors, benzothiadiazides and other diuretics, initial encounter; N28.9 Disorder of kidney and ureter, unspecified
CPT/HCPCS: 36415; 73560; 80048; 82962; 84443; 85027; 87081; 93005; 94640; 97110; 97162; 97166; 97530; C1776; J7030; J7120; A4216; J2405; J3490

== ENCOUNTER 2019-07-11 11:25 | Inpatient (IN) | payer MEDICARE, OTHER, SELFPAY ==
[2019-07-09 16:52] VITALS: BMI 32.1
[2019-07-11 12:00] VITALS: BP 133/62; PULSE 73; RESP 16; TEMP 36.4; O2SAT 94; BMI 34.1
--- NOTE | 2019-07-11 12:31 | PCM.HP.COS ---
History of Present Illness Date of Admission: 07/11/19 Chief Complaint: Debility secondary to Left total knee arthroplasty The patient is a 78 year old F with PMH of HTN, COPD, Hypothyroidism with HX of Cervical CA post hysterectomy in 1974. Patient presented to [facility] for debility secondary right total knee arthroplasty for greater than 3 hours of therapy with a goal of returning home at or near level of independence. Patient had a Right total knee arthroplasty done on 07/09/[address] 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 On 07/10/19 BUN/Cr 17/1.43, today BUN/Cr 21/1.45, received IV fluids and HCTZ/losartan on hold for renal insufficiency- stable. Patient lives alone in a one level house with one step to enter. Prior to hospitalization, patient was independent with all ADLs, mobility and driving. Past Medical History Past Medical History (Chronic Problems): Chronic Problems (Last Updated 12/14/17 @ 08:53 by Katherin Barron) Renal insufficiency (Chronic) COPD (chronic obstructive pulmonary disease) (Chronic) Hypothyroidism (Chronic) Hypertension (Chronic) Medical History: Medical History (Last Updated 12/14/17 @ 08:53 by Katherin Barron) COPD (chronic obstructive pulmonary disease) J44.9 History of hysterectomy Z98.890, Z90.710 Allergies No Known Allergies Allergy (Verified 07/09/19 09:50) Home Medications: Ambulatory Orders Medication Instructions Recorded levothyroxine 75 mcg tablet 75 mcg PO DAILY 12/14/17 multivitamin tablet 1 tab PO QDAY 12/14/17 Budesonide/Formoterol 160/4.5 2 puff INHALATION QHS 08/01/18 [Symbicort 160/4.5 Mcg Inhaler (SP)] Amlodipine [Norvasc] 5 mg PO DAILY 07/11/19 Apixaban [Eliquis] 2.5 mg PO BID 14 Days #28 tab 07/11/19 Surgical History: Surgical History (Last Updated 10/25/18 @ 13:52 by Katherin Barron) h/o left knee scope Surgical History: hysterectomy, total knee arthroplasty, tonsillectomy, - - hemorrhoidectomy Psychiatric History: Depression - HX of depression in 1994, resolved 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 Lives: Alone Smoking Status: Former smoker - Smoked 64 years 1/2 -1 pack/day , cessation 2018 Tobacco Use: Cigarettes Alcohol: None Drugs: None - *Family History Maternal Family History: Family History (Last Updated 07/11/19 @ 12:50 by JOSE Roldan) Mother CVA (cerebral vascular accident) Brother Kidney disease Aneurysm Paternal Family History: Family History (Last Updated 07/11/19 @ 12:50 by JOSE Roldan) Mother CVA (cerebral vascular accident) Brother Kidney disease Aneurysm History Items: No pertinent history Review of Systems Constitutional: Denies: Chills, Fever, Weight Change Eyes: Denies: Blurred vision, Cataracts, Double vision, Vision Change HEENT: Denies: Head Aches, Sinus Congestion, Sinus Drainage Cardiovascular: Denies: Chest Pain, Chest Pressure, Chest Tightness, Palpitations Respiratory: Denies: Cough, Shortness of Breath, Shortness of breath at rest, Sputum production Gastrointestinal: Denies: Abdominal Pain, Nausea, Vomiting Genitourinary: Denies: Dysuria, Frequency, Hesitancy Musculoskeletal: Reports: Joint Tenderness - left knee, mild dull ache Skin: Denies: Rash, Wounds Neurological: Denies: Blurred vision, Double vision, Change in Speech, Focal weakness, Numbness, Tingling Psychiatric: Reports: Depression - reported HX of depression in 1995-resolved Hematologic/ Lymphatic: Denies: Easy Bruising, Easy Bleeding VTE Information - Inpt Only VTE Present on Admission: No VTE Mechan Device Prophylaxis: Thigh High PASCUAL Hose VTE Pharm Prophylaxis ordered?: Yes Patient Problems: Active and Suspected Problems (Last Updated 10/25/18 @ 13:52 by Katherin Barron) Status post total left knee replacement (Acute) Subjective: Some confusion noted with conversation with increase tiredness voiced. Patient redirects easily, cooperative and pleasant, discussed changing oxyir to norco, agreeable. Pain is controlled to left knee. Denies further questions or concerns. - Physical Exam General: Alert, Oriented x3, Cooperative HEENT: Atraumatic, PERRLA Oral: Moist Mucosa Neck: Supple, No JVD Lungs: Clear to auscultation, Normal air movement Cardiovascular: Regular rate, Regular Rhythm Abdomen: Bowel Sounds Present, Soft, Non Tender Extremities: No clubbing, No cyanosis, Edema - mild to left knee Skin: Incision - mepilex drsg intact to left knee incision, without surrounding redness or drng noted Neurological: Cranial nerves II-XII grossly intact, Deep Tendon Reflexes 2+/4 and Symmetrical, Motor Exam 5/5 strength throughout Psych/Mental Status: Normal Affect, Appropriate, Alert and oriented to time, place, person, mood and affect Weight: 98.9 kg Body Mass Index (BMI) 34.1 Assessment/Plan All Active Problems (Last Updated 10/25/18 @ 13:52 by Katherin Barron) Status post total left knee replacement (Acute) The patient is a 78 year old F with PMH of HTN, COPD, Hypothyroidism with HX of Cervical CA post hysterectomy in 1974. Patient presented to [facility] for debility secondary right total knee arthroplasty for greater than 3 hours of therapy with a goal of returning home at or near level of independence. Patient had a Right total knee arthroplasty done on 07/09/[address] 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 On 07/10/19 BUN/Cr 17/1.43, today BUN/Cr 21/1.45, received IV fluids and HCTZ/losartan on hold for renal insufficiency- stable. Patient lives alone in a one level house with one step to enter. Prior to hospitalization, patient was independent with all ADLs, mobility and driving. - PT for mobility - OT for ADLs - Analgesics as needed - S/P Left total knee arthroplasty- polar care as needed, awaiting clarification for Mepilex drsg, WBAT - HTN - HCTZ/losartan on hold d/t renal insufficiency - COPD no Symbicort - Hypothyroidism on levothyroxine - Renal insufficiency- hold hctz/losartan, recheck bmp in am, as well as directed by hospitalist - GI/DVT prophylaxis - pepcid/eliquis 2.5 mg BID - Medical management per hospitalist-consult - Bowel protocol - Fall Precautions - F/U with Dr. Diaz and PCP
--- NOTE | 2019-07-11 14:48 | NURSING ---
Message left for Dr Diaz's office to verify Eliquis stop date and dressing dc date and to see if dressing needs to be removed and replaced with each shower.
[2019-07-11 18:45] VITALS: BP 151/76; PULSE 93; RESP 16; TEMP 37.7; O2SAT 96
[2019-07-11] MEDS: HYDROcodone Bitartrate/Apap 5/325 Tablet PO (18:48)
[2019-07-11 19:35] VITALS: O2SAT 93
[2019-07-11 20:26] VITALS: O2SAT 96
[2019-07-11] MEDS: Fluticasone/Salmeterol 232-14 Inhaler 1 PUFF IH (21:07)
[2019-07-11] MEDS: Senna/Docusate Sodium 1 Tablet 2 TABLET PO (21:07)
[2019-07-11] MEDS: LORazepam 0.5 MG Tablet PO (21:07)
[2019-07-11] MEDS: APIXABAN 2.5 MG TABLET PO (21:07)
--- NOTE | 2019-07-11 21:54 | NURSING ---
Bladder scanned - 845 residual. Straight cathed for 900ml. Pt denies burning when voiding. No foul odor.
[2019-07-11 22:26] VITALS: TEMP 37.7
--- NOTE | 2019-07-11 22:36 | NURSING ---
Temp previously 100 orally. Repeat temp 99.9. CBC ordered for am No other signs or symptoms of infection
[2019-07-12] MEDS: HYDROcodone Bitartrate/Apap 5/325 Tablet PO ×4 (01:26→20:26)
--- NOTE | 2019-07-12 01:59 | NURSING ---
Up to void 100cc. Bladder scanned for 750. Straight cathed (with pt turned to side for better visualization) for 700cc clear yellow urine
[2019-07-12 06:30] VITALS: O2SAT 92
[2019-07-12 06:43] LABS: Absolute Lymphocyte Count 1.97 X10^3/uL (0.83-4.51); Absolute Neutrophil Count 5.7 X10^3/uL (2.0-7.7); Basophil# 0.02 X10^3/uL; Basophil% 0.2 % (0-1); Eosinophil# 0.32 X10^3/uL; Eosinophils% 3.6 % (0-5); Hematocrit 32.5 % (37-47); Hemoglobin 10.4 g/dL (12.0-15.0); Lymphocyte # 1.97 X10^3/ul (4.0); Lymphocyte % 22.2 % (19-41); Mean Corpuscular Volume 96.7 fL (81-99); Mean Platelet Vol. 12.1 fl (6.2-12.0); NRBC Flagged by Analyzer 0 % (0-5); Neutrophil # 5.71 X10^3/uL (2.7-7.7); Neutrophil % 64.5 % (47-70); Platelet Count 139 K/mm3 (150-450); RBC Distribution Width CV 12.6 % (11.6-14.6); RBC Distribution Width SD 44.6 fl (35.1-43.9); Red Blood Count 3.36 M/mm3 (4.2-5.4); White Blood Count 8.9 K/mm3 (4.4-11.0)
[2019-07-12 06:46] VITALS: BP 134/82; PULSE 77; RESP 16; TEMP 36.8; O2SAT 92
[2019-07-12] MEDS: Levothyroxine 75 MCG Tablet PO (06:51)
[2019-07-12 07:13] LABS: Anion Gap 7 (5-15); BUN 22 mg/dL (7-18); Calcium,Total 8.3 mg/dL (8.5-10.1); Chloride 112 mmol/L (98-107); Creatinine, Serum 1.16 mg/dL (0.55-1.02); EST Glomerular Filtration Rate 48 mL/min (>60); Est Glom Filt Rate - Afr Amer 58 mL/min (>60); Estimated Creatinine Clearance 38.87 ml/min; Glucose 90 mg/dL (74-106); Potassium 4.1 mmol/L (3.5-5.1); Sodium Level 146 mmol/L (136-145)
[2019-07-12] MEDS: Senna/Docusate Sodium 1 Tablet 2 TABLET PO ×2 (07:54→20:26)
[2019-07-12] MEDS: Multivitamins,Therapeutic Tablet 1 TABLET PO (07:55)
[2019-07-12] MEDS: amLODIPine 5 MG Tablet PO (07:55)
[2019-07-12] MEDS: APIXABAN 2.5 MG TABLET PO ×2 (07:55→20:26)
--- NOTE | 2019-07-12 07:57 | NURSING ---
Patient requested AM meds with breakfast and given.
[2019-07-12 08:00] VITALS: BP 108/56; PULSE 87; RESP 16; TEMP 36.9; O2SAT 90
[2019-07-12 08:45] VITALS: O2SAT 92
--- NOTE | 2019-07-12 09:36 | PN.NEURO_ITS ---
Patient Problems: Active and Suspected Problems (Last Updated 10/25/18 @ 13:52 by Katherin Barron) Status post total left knee replacement (Acute) Subjective: Per nursing, can be forgetful. Patient voiced she feels better this am, less confusion. Patient stated pain is well controlled. Denies further questions or concerns. - Physical Exam General: Alert, Oriented x3, Cooperative, - - forgetful at times HEENT: Atraumatic, PERRLA, EOMI Oral: Moist Mucosa Neck: Supple, No JVD Lungs: Clear to auscultation, Normal air movement Cardiovascular: Regular rate, Regular Rhythm Abdomen: Bowel Sounds Present, Soft, Non Tender Extremities: No clubbing, No cyanosis, - - left knee mild Skin: Incision - harshad intact to left knee, without redness or active drng. Neurological: Cranial nerves II-XII grossly intact, Deep Tendon Reflexes 2+/4 and Symmetrical, Motor Exam 5/5 strength throughout Psych/Mental Status: Normal Affect, Appropriate, Alert and oriented to time, place, person, mood and affect - can be forgetful, redirects easily, cooperative and pleasant Vital Signs Temp Pulse Resp BP Pulse Ox 98.2 F 77 16 134/82 H 92 07/12/19 06:46 07/12/19 06:46 07/12/19 06:46 07/12/19 06:46 07/12/19 06:46 Oxygen Delivery Method Room Air Weight: 98.9 kg Body Mass Index (BMI) 34.1 Intake and Output for Last 24 Hours 07/10/19 07/11/19 07/12/19 23:59 23:59 23:59 Intake Total 240 / 240 120 / 120 Output Total 400 / 400 100 / 100 Balance -160 / -160 Laboratory Tests Past 24 Hrs 07/12/19 07/12/19 06:30 06:30 WBC 8.9 RBC 3.36 L Hgb 10.4 L Hct 32.5 L MCV 96.7 MCH 31.0 MCHC 32.0 RDW Std Deviation 44.6 H RDW Coeff of Carlos 12.6 Plt Count 139 L MPV 12.1 H Immature Gran % (Auto) 0.500 Neut % (Auto) 64.5 Lymph % (Auto) 22.2 [place] % (Auto) 9.0 Eos % (Auto) 3.6 Baso % (Auto) 0.2 Absolute Neuts (auto) 5.7 Absolute Lymphs (auto) 1.97 Nucleated RBC % 0 Sodium 146 H Potassium 4.1 Chloride 112 H Carbon Dioxide 27.0 Anion Gap 7 BUN 22 H Creatinine 1.16 H Estim Creat Clear Calc 38.87 Est GFR (MDRD) Af Amer 58 L Est GFR (MDRD) Non-Af 48 L BUN/Creatinine Ratio 19.0 Glucose 90 Calcium 8.3 L Medical Necessity - Tobacco Use Smoking Status: Former smoker - Smoked 64 years 1/2 -1 pack/day , cessation 2018 Tobacco Use: Cigarettes Assessment/Plan All Active Problems (Last Updated 10/25/18 @ 13:52 by Katherin Barron) Status post total left knee replacement (Acute) The patient is a 78 year old F with PMH of HTN, COPD, Hypothyroidism with HX of Cervical CA post hysterectomy in 1974. Patient presented to [facility] for debility secondary right total knee arthroplasty for greater than 3 hours of therapy with a goal of returning home at or near level of independence. Patient had a Right total knee arthroplasty done on 07/09/[address] 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 On 07/10/19 BUN/Cr 17/1.43, today BUN/Cr 21/1.45, received IV fluids and HCTZ/losartan on hold for renal insufficiency- stable. Patient lives alone in a one level house with one step to enter. Prior to hospitalization, patient was independent with all ADLs, mobility and driving. - PT for mobility - OT for ADLs - Analgesics as needed - S/P Left total knee arthroplasty- polar care as needed, WBAT, abd drsg to incision- change daily, harshad to be discontinued at f/u appt in 2 weeks. - HTN - HCTZ/losartan on hold d/t renal insufficiency - COPD no Symbicort - Hypothyroidism on levothyroxine - Renal insufficiency- hold hctz/losartan, recheck bmp in am, as well as directed by hospitalist. 07/12/19 BUN/Cr 22/1.16, encourage fluids - GI/DVT prophylaxis - pepcid/eliquis 2.5 mg BID x 14 days, with last dose on 07/23/19 at HS - Medical management per hospitalist-consult - Bowel protocol - Fall Precautions - F/U with Dr. Diaz in 2 weeks and PCP
[2019-07-12 10:00] VITALS: O2SAT 90
[2019-07-12] MEDS: Fluticasone/Salmeterol 232-14 Inhaler 1 PUFF IH ×2 (11:00→20:28)
--- NOTE | 2019-07-12 11:54 | PN_ITS ---
Patient Problems: Active and Suspected Problems (Last Updated 10/25/18 @ 13:52 by Katherin Barron) Status post total left knee replacement (Acute) Subjective: Chief complaint: Follow-up after consultation for medical management following admission to inpatient rehabilitation unit. This is a 78 years old female patient underwent elective left total knee replacement for left knee osteoarthritis and I am seeing this patient in consultation for medical management following admission to inpatient rehabilitation unit. Patient states that her left knee pain is manageable and she has been doing well with physical therapy this morning. She denies any other complaints. Her vital signs are stable - Physical Exam General: Alert, Oriented x3, Cooperative, No apparent distress HEENT: Atraumatic, PERRLA, EOMI, Normocephalic Oral: Moist Mucosa, No Gingival or Mucosal Lesions/ Ulcerations Neck: Supple, No JVD, Negative Carotid Bruits, Trachea Midline, Thyroid Normal Size and Texture Lungs: Clear to auscultation, Normal air movement, No rhonchi, No wheeze, No rales Cardiovascular: Regular rate, Regular Rhythm, Normal S1, Normal S2, No murmurs, No Ectopic Activity, PMI Normal Abdomen: Soft, Non Tender, Non-Distended, No Hepato-splenomegaly Extremities: No clubbing, No cyanosis, No edema Skin: No rashes, No breakdown Lymphatic: No Cervical, Supraclavicular, or Inguinal Adenopathy Neurological: Cranial nerves II-XII grossly intact, Motor Exam 5/5 strength throughout Psych/Mental Status: Normal Affect, Appropriate, Alert and oriented to time, place, person, mood and affect Vital Signs Temp Pulse Resp BP Pulse Ox 98.4 F 87 16 108/56 L 90 07/12/19 08:00 07/12/19 08:00 07/12/19 08:00 07/12/19 08:00 07/12/19 08:00 Oxygen Delivery Method Room Air Weight: 218 lb 0.595 oz Body Mass Index (BMI) 34.1 Intake and Output for Last 24 Hours 07/10/19 07/11/19 07/12/19 23:59 23:59 23:59 Intake Total 240 / 240 120 / 120 Output Total 400 / 400 300 / 300 Balance -160 / -160 -180 / -180 Laboratory Tests Past 24 Hrs 07/12/19 07/12/19 06:30 06:30 WBC 8.9 RBC 3.36 L Hgb 10.4 L Hct 32.5 L MCV 96.7 MCH 31.0 MCHC 32.0 RDW Std Deviation 44.6 H RDW Coeff of Carlos 12.6 Plt Count 139 L MPV 12.1 H Immature Gran % (Auto) 0.500 Neut % (Auto) 64.5 Lymph % (Auto) 22.2 [place] % (Auto) 9.0 Eos % (Auto) 3.6 Baso % (Auto) 0.2 Absolute Neuts (auto) 5.7 Absolute Lymphs (auto) 1.97 Nucleated RBC % 0 Sodium 146 H Potassium 4.1 Chloride 112 H Carbon Dioxide 27.0 Anion Gap 7 BUN 22 H Creatinine 1.16 H Estim Creat Clear Calc 38.87 Est GFR (MDRD) Af Amer 58 L Est GFR (MDRD) Non-Af 48 L BUN/Creatinine Ratio 19.0 Glucose 90 Calcium 8.3 L Medical Necessity - Tobacco Use Smoking Status: Former smoker - Smoked 64 years 1/2 -1 pack/day , cessation 2017 Tobacco Use: Cigarettes Assessment/Plan All Active Problems (Last Updated 10/25/18 @ 13:52 by Katherin Barron) Status post total left knee replacement (Acute) This is a 78 years old female patient admitted to inpatient rehabilitation unit after she underwent elective left total knee replacement for left knee osteoarthritis and I am seeing this patient in consultation for medical management. #1 status post left total knee replacement: This was done for left knee osteoarthritis. She is on [place] PRN for pain. Her vital signs are stable. Berny n is well-managed. She is doing okay with physical therapy. Today's routine blood work was remarkable for hemoglobin of 10.4 g/dL, platelet count of 139, BUN of 22 and creatinine of 1.16. Plan to continue PT OT according to rehab team. #2 Stage III chronic kidney disease: Attributed to HCTZ and losartan that patient has been on since October,. Today, creatinine came down to 1.16, it was 1.45 yesterday. Losartan and HCTZ discontinued. She was started on Norvasc for hypertension. Kidney function improved. Plan to keep holding losartan and HCTZ, continue Norvasc, monitor blood pressure. #3 postoperative anemia/thrombocytopenia: Likely because of blood loss during surgery and patient has been receiving IV fluids. Hemoglobin was 13.3 therefore yesterday and it is 10.4 today. No evidence of active bleeding. Today's platelet count is 1 39,000, has been trending down. Plan: We will check her pro time and INR, repeat CBC in 3 to 4 days. #4 hypertension: Blood pressure stable, continue Norvasc. #5 hypothyroidism: TSH was normal last month, continue levothyroxine. #6 COPD: Stable, pulse ox is maintained on room air. Continue Advair. Patient quit smoking years ago. #7 DVT prophylaxis: Continue Eliquis. This note was generated with [employer] software. It may contain incorrect words, spelling, and punctuation that were not noted in checking the note before signing. Code Visit Inpatient E&M: 75755 Subs Hosp L2
[2019-07-12 12:46] LABS: International Normalized Ratio 1.2
[2019-07-12] MEDS: Magnesium Hydroxide 30 ML UDC PO (13:17)
--- NOTE | 2019-07-12 14:13 | NURSING ---
Patient has been voiding today smaller amounts. Denies dysuria, frequency, distention, pain. No signs of distention noted by this nurse. Bladder scan post void residual 436cc at this time. Demi MCMANUS for neurology paged.
--- NOTE | 2019-07-12 14:30 | NURSING ---
Demi LOCKSMITH aware of retention and new order to straight cath patient if value is 600cc or over. Demi also aware of constipation today with MOM and prune juice given with no results yet.
[2019-07-12 19:45] VITALS: BP 127/63; PULSE 88; RESP 16; TEMP 36.9; O2SAT 95
[2019-07-12] MEDS: Bisacodyl 10 MG Suppository RECTAL (20:25)
[2019-07-12] MEDS: LORazepam 0.5 MG Tablet PO (20:26)
[2019-07-12] MEDS: Calcium Carbonate 500 MG Tablet 1000 MG PO (20:28)
[2019-07-13] MEDS: HYDROcodone Bitartrate/Apap 5/325 Tablet PO ×2 (02:59→20:50)
--- NOTE | 2019-07-13 03:19 | NURSING ---
At 20:00 and now urine was not measured as pt requested staff take the hat out in case she had a bm. Pt states I voided a large amount - at this time
[2019-07-13] MEDS: Levothyroxine 75 MCG Tablet PO (06:28)
--- NOTE | 2019-07-13 06:52 | NURSING ---
Addendum entered by Raven Zhong 07/13/19 07:13: Pt took 1000cc of 1500cc ss enema Original Note: SS Enema given with small amt brown liquid results. OT now in room for adls
--- NOTE | 2019-07-13 07:06 | NURSING ---
Denies feeling full, bloated. States abd is not distended, soft per palpation. Non tender
[2019-07-13] MEDS: amLODIPine 5 MG Tablet PO (08:06)
[2019-07-13] MEDS: Multivitamins,Therapeutic Tablet 1 TABLET PO (08:06)
[2019-07-13] MEDS: APIXABAN 2.5 MG TABLET PO ×2 (08:06→20:51)
[2019-07-13] MEDS: Senna/Docusate Sodium 1 Tablet 2 TABLET PO ×2 (08:06→20:50)
[2019-07-13 08:15] VITALS: BP 141/73; PULSE 88; RESP 18; TEMP 36.7; O2SAT 97
[2019-07-13] MEDS: Fluticasone/Salmeterol 232-14 Inhaler 1 PUFF IH ×2 (11:00→20:50)
[2019-07-13] MEDS: Calcium Carbonate 500 MG Tablet 1000 MG PO (11:14)
[2019-07-13 15:49] VITALS: O2SAT 99
[2019-07-13 18:59] VITALS: BP 147/71; PULSE 94; RESP 18; TEMP 36.8; O2SAT 95
[2019-07-14] MEDS: Levothyroxine 75 MCG Tablet PO (06:10)
[2019-07-14 07:08] VITALS: BP 140/81; PULSE 90; RESP 17; TEMP 37; O2SAT 95
[2019-07-14] MEDS: Fluticasone/Salmeterol 232-14 Inhaler 1 PUFF IH ×2 (09:21→21:32)
[2019-07-14] MEDS: amLODIPine 5 MG Tablet PO (09:22)
[2019-07-14] MEDS: Multivitamins,Therapeutic Tablet 1 TABLET PO (09:22)
[2019-07-14] MEDS: APIXABAN 2.5 MG TABLET PO ×2 (09:22→21:32)
--- NOTE | 2019-07-14 11:00 | NURSING ---
to multipurpose room and on nustep for 10 minutes. tolerated well.
--- NOTE | 2019-07-14 13:42 | PN_ITS ---
Subjective: Chief complaint: Follow-up after consultation for medical management following admission to inpatient rehabilitation unit. Patient seen and examined. No acute events overnight. She is doing well. Left knee pain is well controlled, not requiring narcotic pain medications. She had a bowel movement today. Denied any new complaints. Her vital signs are stable. - Physical Exam General: Alert, Oriented x3, Cooperative, No apparent distress HEENT: Atraumatic, PERRLA, EOMI, Normocephalic Oral: Moist Mucosa, No Gingival or Mucosal Lesions/ Ulcerations Neck: Supple, No JVD, Negative Carotid Bruits, Trachea Midline, Thyroid Normal Size and Texture Lungs: Clear to auscultation, Normal air movement, No rhonchi, No wheeze, No rales Cardiovascular: Regular rate, Regular Rhythm, Normal S1, Normal S2, PMI Normal Abdomen: Bowel Sounds Present, Soft, Non Tender, Non-Distended, No Hepato- splenomegaly, Obese Extremities: No clubbing, No cyanosis, No edema Skin: No rashes, No breakdown Lymphatic: No Cervical, Supraclavicular, or Inguinal Adenopathy Neurological: Cranial nerves II-XII grossly intact, Neuro grossly intact Psych/Mental Status: Normal Affect, Appropriate Vital Signs Temp Pulse Resp BP Pulse Ox 98.6 F 90 17 140/81 H 95 07/14/19 07:08 07/14/19 07:08 07/14/19 07:08 07/14/19 07:08 07/14/19 07:08 Oxygen Delivery Method Room Air Weight: 218 lb 0.595 oz Body Mass Index (BMI) 34.1 Intake and Output for Last 24 Hours 07/12/19 07/13/19 07/14/19 23:59 23:59 23:59 Intake Total 1120 / 1120 240 / 240 480 / 480 Output Total 1600 / 1600 Balance -480 / -480 240 / 240 480 / 480 Medical Necessity - Tobacco Use Smoking Status: Former smoker - Smoked 64 years 1/2 -1 pack/day , cessation 2018 Tobacco Use: Cigarettes Assessment/Plan All Active Problems (Last Updated 10/25/18 @ 13:52 by Katherin Barron) Status post total left knee replacement (Acute) This is a 78 years old female patient admitted to inpatient rehabilitation unit after she underwent elective left total knee replacement for left knee osteoarthritis and I am seeing this patient in consultation for medical management. #1 status post left total knee replacement: She is doing well, her left knee pain is well controlled, not requiring narcotic pain medications. She is doing well with physical therapy. She is on [place] PRN for pain. Her vital signs are stable. Plan to continue PT OT according to rehab team. Plan to repeat CBC and BMP after tomorrow. #2 Stage III chronic kidney disease: Attributed to HCTZ and losartan that patient has been on since October,. creatinine came down to 1.16, improved. Losartan and HCTZ discontinued. She was started on Norvasc for hy pertension. Kidney function improved. #3 postoperative anemia/thrombocytopenia: Likely because of blood loss during surgery and patient has been receiving IV fluids. Hemoglobin was 13.3 before surgery and it was 10.4 g/dL before yesterday. No evidence of active bleeding. Most recent platelet count is 1 39,000, has been trending down. We will repeat CBC and BMP after tomorrow. #4 hypertension: Blood pressure stable, continue Norvasc. #5 hypothyroidism: TSH was normal last month, continue levothyroxine. #6 COPD: Stable, pulse ox is maintained on room air. Continue Advair. Patient quit smoking years ago. #7 DVT prophylaxis: Continue Eliquis. This note was generated with [employer] dictation software. It may contain incorrect words, spelling, and punctuation that were not noted in checking the note before signing. Code Visit Inpatient E&M: 01583 Subs Hosp L2
[2019-07-14] MEDS: BENZOCAINE/MENTHOL 1 LOZENGE MUCOUS MEM (18:41)
[2019-07-14 19:17] VITALS: BP 140/78; PULSE 83; RESP 12; TEMP 37.3; O2SAT 96
[2019-07-15] MEDS: Levothyroxine 75 MCG Tablet PO (06:18)
[2019-07-15 06:55] VITALS: BP 147/82; PULSE 92; RESP 16; TEMP 36.9; O2SAT 96
[2019-07-15] MEDS: Senna/Docusate Sodium 1 Tablet 2 TABLET PO (07:53)
[2019-07-15] MEDS: amLODIPine 5 MG Tablet PO (07:53)
[2019-07-15] MEDS: APIXABAN 2.5 MG TABLET PO ×2 (07:53→21:52)
[2019-07-15] MEDS: Multivitamins,Therapeutic Tablet 1 TABLET PO (07:53)
[2019-07-15] MEDS: Fluticasone/Salmeterol 232-14 Inhaler 1 PUFF IH ×2 (07:56→21:53)
[2019-07-15] MEDS: HYDROcodone Bitartrate/Apap 5/325 Tablet PO (08:19)
--- NOTE | 2019-07-15 10:00 | PN.NEURO_ITS ---
Subjective: Per nursing, no issues overnight. Patient continues to tolerate therapies well, pain is controlled and confusion resolved. Team meeting today, Further details per PT/OT from their notes. All questions answered. - Physical Exam General: Alert, Oriented x3, Cooperative HEENT: Atraumatic, PERRLA Oral: Moist Mucosa Neck: Supple, No JVD Lungs: Clear to auscultation, Normal air movement Cardiovascular: Regular rate, Regular Rhythm Abdomen: Bowel Sounds Present, Soft, Non Tender Extremities: No clubbing, No cyanosis, - - mild to left knee Skin: Incision - harshad intact to left knee, without redness or drng Neurological: Cranial nerves II-XII grossly intact, Deep Tendon Reflexes 2+/4 and Symmetrical, Motor Exam 5/5 strength throughout Psych/Mental Status: Normal Affect, Appropriate, Alert and oriented to time, place, person, mood and affect Vital Signs Temp Pulse Resp BP Pulse Ox 98.4 F 92 16 147/82 H 96 07/15/19 06:55 07/15/19 06:55 07/15/19 06:55 07/15/19 06:55 07/15/19 06:55 Oxygen Delivery Method Room Air Weight: 98.9 kg Body Mass Index (BMI) 34.1 Intake and Output for Last 24 Hours 07/13/19 07/14/19 07/15/19 23:59 23:59 23:59 Intake Total 240 / 240 720 / 720 Balance 240 / 240 720 / 720 Medical Necessity - Tobacco Use Smoking Status: Former smoker - Smoked 64 years 1/2 -1 pack/day , cessation 2018 Tobacco Use: Cigarettes Assessment/Plan All Active Problems (Last Updated 10/25/18 @ 13:52 by Katherin Barron) Status post total left knee replacement (Acute) The patient is a 78 year old F with PMH of HTN, COPD, Hypothyroidism with HX of Cervical CA post hysterectomy in 1974. Patient presented to [facility] for debility secondary right total knee arthroplasty for greater than 3 hours of therapy with a goal of returning home at or near level of independence. Patient had a Right total knee arthroplasty done on 07/09/[address] 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 On 07/10/19 BUN/Cr 17/1.43, today BUN/Cr 21/1.45, received IV fluids and HCTZ/losartan on hold for renal insufficiency- stable. Patient lives alone in a one level house with one step to enter. Prior to hospitalization, patient was independent with all ADLs, mobility and driving. - PT for mobility - OT for ADLs - Analgesics as needed - S/P Left total knee arthroplasty- polar care as needed, WBAT, abd drsg to incision- change daily, harshad to be discontinued at f/u appt on 07/22/19 @ 0356. - HTN - HCTZ/losartan d/c d/t renal insufficiency on norvasc - COPD no Symbicort - Hypothyroidism on levothyroxine - CKD stage III- hctz/losartan d/c, 07/12/19 BUN/Cr 22/1.16, recheck bmp on 07/16- as directed by hospitalist, encourage fluids - GI/DVT prophylaxis - pepcid/eliquis 2.5 mg BID x 14 days, with last dose on 07/23/19 at HS - Postoperative anemia and thrombocytopenia- on 07/12/19 Hgb 10.4, PLT 139, recheck cbc in am as directed by hospitalist - Medical management per hospitalist-consult - Bowel protocol - Fall Precautions - F/U with Dr. Diaz on 07/22/19 @ [id number] and PCP
--- NOTE | 2019-07-15 10:03 | CASEMGMT ---
Social Work IDT met with patient and friend for Team Meeting. Discussed patient's progress. Patient's cognition is clearing and appears to be back to baseline. Patient is CGA for transfers, min for bed mobility, walking 65 ft with FWW and CGA 3 steps with 2 handrails. Pt is CGA ADLs and min for LE dressing. Patient lives at home alone with 14 steps to basement to change cat litter with 1 handrail. Pt gets taples removed 07/22. Friend leaving for vacation 07/23 who assists pt when needed. Explained Medicare coverage and ELOS 14 days with anticipated DC date of 07/25. Will ReTeam next Monday, unlesss pt feels comfortable discharging home prior. Will continue to follow for discharge planning. PALMIRA Valdez
--- NOTE | 2019-07-15 16:02 | PCM.PN.HOSP ---
Subjective: Patient has left TKR. Complain of mild left knee stiffness. She did not had much physical therapy on weekend. Vitals/I&O's: Vital Signs Temp Pulse Resp BP Pulse Ox 98.4 F 92 16 147/82 H 96 07/15/19 06:55 07/15/19 06:55 07/15/19 06:55 07/15/19 06:55 07/15/19 06:55 Oxygen Delivery Method Room Air Weight: 218 lb 0.595 oz Body Mass Index (BMI) 34.1 Intake and Output for Last 24 Hours 07/13/19 07/14/19 07/15/19 23:59 23:59 23:59 Intake Total 240 / 240 720 / 720 Balance 240 / 240 720 / 720 General: Alert, Oriented x3, Cooperative HEENT: Atraumatic, PERRLA, EOMI, Normocephalic Neck: Supple, No JVD, Negative Carotid Bruits Lungs: Clear to auscultation, Normal air movement, No rhonchi, No wheeze, No rales Cardiovascular: Regular rate, Regular Rhythm, Normal S1, Normal S2, No murmurs Abdomen: Bowel Sounds Present, Soft, Non Tender Extremities: No edema, Capillary Refill Less than 3 Seconds Skin: No rashes, No breakdown Musculoskeletal: No Tenderness to Palpation of Joints or Extremities, Arthritic Changes, - - Left knee has Rajan wrap bandage around it. Neurological: Cranial nerves II-XII grossly intact Psych/Mental Status: Normal Affect, Appropriate Current Medications Hydrocodone Bitart/Acetaminophen ([place] 5mg-325mg) 1 - 2 tablet PO Q4H PRN PRN PRN Reason: PAIN Last Admin: 07/15/19 08:19 Dose: 1 tablet Documented by: Amlodipine Besylate (Norvasc) 5 mg PO DAILY [facility] Last Admin: 07/15/19 07:53 Dose: 5 mg Documented by: Apixaban (Eliquis) 2.5 mg PO BID ROBERTO Stop: 07/23/19 22:01 Last Admin: 07/15/19 07:53 Dose: 2.5 mg Documented by: Bisacodyl (Dulcolax) 10 mg RECTAL .PRN X 1 PRN PRN Reason: Constipation Last Admin: 07/12/19 20:25 Dose: 10 mg Documented by: Calcium Carbonate (Tums) 1,000 mg PO Q6H PRN PRN PRN Reason: INDIGESTION Last Admin: 07/13/19 11:14 Dose: 1,000 mg Documented by: Levothyroxine Sodium (Synthroid) 75 mcg PO DAILY@0600 [facility] Last Admin: 07/15/19 06:18 Dose: 75 mcg Documented by: Lorazepam (Ativan) 0.5 - 1 mg PO QHS PRN PRN PRN Reason: Insomnia Last Admin: 07/12/19 20:26 Dose: 0.5 mg Documented by: Magnesium Hydroxide (Milk Of Magnesia) 30 ml PO .PRN X 1 PRN PRN Reason: Constipation Last Admin: 07/12/19 13:17 Dose: 30 ml Documented by: Multivitamins (Multivitamin) 1 tablet PO DAILY@0800 [facility] Last Admin: 07/15/19 07:53 Dose: 1 tablet Documented by: Fluticasone/Salmeterol (Fluticasone-Salmeterol [id number]) 1 puff IH Q12 [facility] Last Admin: 07/15/19 07:56 Dose: 1 puff Documented by: Senna/Docusate Sodium (Senokot-S, Dinah-Colace) 2 tablet PO BID [facility] Last Admin: 07/15/19 07:53 Dose: 2 tablet Documented by: Sodium Chloride () 10 - 40 ml IV UD PRN PRN Reason: SALINE FLUSH Throat Lozenges (Cepacol Sore Throat Lozenge) 1 lozenge MUCOUS MEM Q2H PRN PRN PRN Reason: SORE THROAT Last Admin: 07/14/19 18:41 Dose: 1 lozenge Documented by: Medical Necessity - Tobacco Use Smoking Status: Former smoker - Smoked 64 years 1/2 -1 pack/day , cessation 2018 Tobacco Use: Cigarettes Assessment/Plan All Active Problems (Last Updated 10/25/18 @ 13:52 by Katherin Barron) Status post total left knee replacement (Acute) This is a 78 years old female is being admitted to inpatient rehab for elective left TKR for left total knee degenerative arthritis. 1. Left degenerative arthritis status post TKR on 07/09/[address] Diaz after failed conservative management. Continue pain medication, PT and OT. [place] as needed for severe pain. Heart rate and blood pressure more controlled. 2 Stage III chronic kidney disease: It is most rapidly secondary to HCTZ and losartan that patient has been on since October,. creatinine came down to 1.16, improved. Losartan and HCTZ discontinued. She was started on Norvasc for hypertension. Kidney function improving. Last BUN/creatinine on 07/12 22/1.16. Acute blood loss postsurgical anemia/thrombocytopenia: Likely because of blood loss during surgery and patient has been receiving IV fluids. Hemoglobin was 13.3 before surgery and it was 10.4 g/dL on 07/12. No evidence of active bleeding. Most recent platelet count is 139,000. Monitor CBC and BMP. 4 hypertension: Blood pressure stable, continue Norvasc. 5 hypothyroidism: TSH was normal last month, continue levothyroxine. 6 COPD: Patient admitted that she is legally short of breath on physical therapy secondary to COPD. No tachypnea or hypoxia. Respiratory rate 12 to 16/min. Continue Advair. Patient quit smoking years ago. 7 DVT prophylaxis: Continue Eliquis. Active Medications Hydrocodone Bitart/Acetaminophen ([place] 5mg-325mg) 1 - 2 tablet PO Q4H PRN PRN PRN Reason: PAIN Last Admin: 07/15/19 08:19 Dose: 1 tablet Documented by: Amlodipine Besylate (Norvasc) 5 mg PO DAILY [facility] Last Admin: 07/15/19 07:53 Dose: 5 mg Documented by: Apixaban (Eliquis) 2.5 mg PO BID [facility] Stop: 07/23/19 22:01 Last Admin: 07/15/19 07:53 Dose: 2.5 mg Documented by: Bisacodyl (Dulcolax) 10 mg RECTAL .PRN X 1 PRN PRN Reason: Constipation Last Admin: 07/12/19 20:25 Dose: 10 mg Documented by: Calcium Carbonate (Tums) 1,000 mg PO Q6H PRN PRN PRN Reason: INDIGESTION Last Admin: 07/13/19 11:14 Dose: 1,000 mg Documented by: Levothyroxine Sodium (Synthroid) 75 mcg PO DAILY@0600 [facility] Last Admin: 07/15/19 06:18 Dose: 75 mcg Documented by: Lorazepam (Ativan) 0.5 - 1 mg PO QHS PRN PRN PRN Reason: Insomnia Last Admin: 07/12/19 20:26 Dose: 0.5 mg Documented by: Magnesium Hydroxide (Milk Of Magnesia) 30 ml PO .PRN X 1 PRN PRN Reason: Constipation Last Admin: 07/12/19 13:17 Dose: 30 ml Documented by: Multivitamins (Multivitamin) 1 tablet PO DAILY@0800 [facility] Last Admin: 07/15/19 07:53 Dose: 1 tablet Documented by: Fluticasone/Salmeterol (Fluticasone-Salmeterol [id number]) 1 puff IH Q12 [facility] Last Admin: 07/15/19 07:56 Dose: 1 puff Documented by: Senna/Docusate Sodium (Senokot-S, Dinah-Colace) 2 tablet PO BID [facility] Last Admin: 07/15/19 07:53 Dose: 2 tablet Documented by: Sodium Chloride () 10 - 40 ml IV UD PRN PRN Reason: SALINE FLUSH Throat Lozenges (Cepacol Sore Throat Lozenge) 1 lozenge MUCOUS MEM Q2H PRN PRN PRN Reason: SORE THROAT Last Admin: 07/14/19 18:41 Dose: 1 lozenge Documented by: Code Visit Inpatient E&M: 99919 Subs Hosp L2
--- NOTE | 2019-07-15 18:21 | NURSING ---
reviewed and agree with LINEN ROOM ATTENDANT's FIMS and charting
[2019-07-15 19:36] VITALS: BP 142/84; PULSE 93; RESP 18; TEMP 36.6; O2SAT 94
[2019-07-15 21:39] VITALS: PULSE 93; RESP 18; O2SAT 94
[2019-07-15] MEDS: LORazepam 0.5 MG Tablet PO (21:53)
[2019-07-16 05:30] LABS: Absolute Lymphocyte Count 1.62 X10^3/uL (0.83-4.51); Absolute Neutrophil Count 5.3 X10^3/uL (2.0-7.7); Basophil# 0.03 X10^3/uL; Basophil% 0.4 % (0-1); Eosinophil# 0.33 X10^3/uL; Eosinophils% 4.1 % (0-5); Hematocrit 34.1 % (37-47); Hemoglobin 10.9 g/dL (12.0-15.0); Lymphocyte # 1.62 X10^3/ul (4.0); Mean Corpuscular Hgb 31.1 pg (27.0-32.0); Mean Corpuscular Volume 97.2 fL (81-99); Mean Platelet Vol. 10.7 fl (6.2-12.0); Monocyte# 0.82 X10^3/uL; Monocyte% 10.1 % (0-10); NRBC Flagged by Analyzer 0 % (0-5); Neutrophil # 5.26 X10^3/uL (2.7-7.7); Platelet Count 228 K/mm3 (150-450); RBC Distribution Width CV 12.8 % (11.6-14.6); RBC Distribution Width SD 45.4 fl (35.1-43.9); Red Blood Count 3.51 M/mm3 (4.2-5.4); White Blood Count 8.1 K/mm3 (4.4-11.0)
[2019-07-16 05:46] LABS: Anion Gap 6 (5-15); BUN 14 mg/dL (7-18); BUN/Creat Ratio 12.7 RATIO (10-20); Calcium,Total 8.5 mg/dL (8.5-10.1); Chloride 109 mmol/L (98-107); EST Glomerular Filtration Rate 51 mL/min (>60); Est Glom Filt Rate - Afr Amer 62 mL/min (>60); Estimated Creatinine Clearance 40.99 ml/min; Glucose 101 mg/dL (74-106); Potassium 4.5 mmol/L (3.5-5.1); Sodium Level 145 mmol/L (136-145)
[2019-07-16] MEDS: Levothyroxine 75 MCG Tablet PO (06:03)
[2019-07-16 07:23] VITALS: BP 153/80; PULSE 89; RESP 18; TEMP 36.6; O2SAT 95
[2019-07-16] MEDS: amLODIPine 5 MG Tablet PO (07:30)
[2019-07-16] MEDS: Senna/Docusate Sodium 1 Tablet 2 TABLET PO (07:30)
[2019-07-16] MEDS: Multivitamins,Therapeutic Tablet 1 TABLET PO (07:30)
[2019-07-16] MEDS: APIXABAN 2.5 MG TABLET PO ×2 (07:30→21:20)
[2019-07-16] MEDS: Fluticasone/Salmeterol 232-14 Inhaler 1 PUFF IH ×2 (07:30→21:20)
[2019-07-16 08:21] VITALS: BP 130/71
[2019-07-16] MEDS: HYDROcodone Bitartrate/Apap 5/325 Tablet PO ×2 (10:42→21:20)
--- NOTE | 2019-07-16 10:53 | PN.NEURO_ITS ---
Subjective: No issues overnight. Care discussed with the nursing staff. Creatinine 1.16- >1.10. PLT- 139->228Tolerating therapies well. - Physical Exam General: Alert HEENT: Normocephalic Neck: Supple Lungs: Normal air movement Cardiovascular: Normal S1, Normal S2 Abdomen: Bowel Sounds Present Extremities: No cyanosis Neurological: Cranial nerves II-XII grossly intact, Deep Tendon Reflexes 2+/4 and Symmetrical, Neuro grossly intact, Motor Exam 5/5 strength throughout, Muscle tone normal, Sensory exam intact to light touch and pain, Coordination normal Psych/Mental Status: Normal Affect Vital Signs Temp Pulse Resp BP Pulse Ox 98 F 89 18 130/71 H 95 07/16/19 07:23 07/16/19 07:23 07/16/19 07:23 07/16/19 08:21 07/16/19 07:23 Oxygen Delivery Method Room Air Weight: 98.9 kg Body Mass Index (BMI) 34.1 Intake and Output for Last 24 Hours 07/14/19 07/15/19 07/16/19 23:59 23:59 23:59 Intake Total 720 / 720 Output Total 200 / 200 Balance 720 / 720 -200 / -200 Laboratory Tests Past 24 Hrs 07/16/19 07/16/19 05:20 05:20 WBC 8.1 RBC 3.51 L Hgb 10.9 L Hct 34.1 L MCV 97.2 MCH 31.1 MCHC 32.0 RDW Std Deviation 45.4 H RDW Coeff of Carlos 12.8 Plt Count 228 MPV 10.7 Immature Gran % (Auto) 0.400 Neut % (Auto) 65.0 Lymph % (Auto) 20.0 [place] % (Auto) 10.1 H Eos % (Auto) 4.1 Baso % (Auto) 0.4 Absolute Neuts (auto) 5.3 Absolute Lymphs (auto) 1.62 Nucleated RBC % 0 Sodium 145 Potassium 4.5 Chloride 109 H Carbon Dioxide 30.0 Anion Gap 6 BUN 14 Creatinine 1.10 H Estim Creat Clear Calc 40.99 Est GFR (MDRD) Af Amer 62 Est GFR (MDRD) Non-Af 51 L BUN/Creatinine Ratio 12.7 Glucose 101 Calcium 8.5 Medical Necessity - Tobacco Use Smoking Status: Former smoker - Smoked 64 years 1/2 -1 pack/day , cessation 2018 Tobacco Use: Cigarettes Assessment/Plan All Active Problems (Last Updated 10/25/18 @ 13:52 by Katherin Barron) Status post total left knee replacement (Acute) 78 year old F with PMH of HTN, COPD, Hypothyroidism, CKD, HX of Cervical CA post hysterectomy in 1974 admitted to [facility] on 07/11/19 with debility secondary right total knee arthroplasty, for greater than 3 hours of therapy daily with a goal of returning home at or near her prior level of functional independence. Patient had a Right total knee arthroplasty done on 07/09/[address] 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 - PT for gait stability - OT for ADLs - Analgesics as needed - S/P Left total knee arthroplasty- polar care as needed, WBAT, abd drsg to incision- change daily, harshad to be discontinued at f/u appt on 07/22/19 @ 6001. - HTN - HCTZ/losartan d/c d/t renal insufficiency on norvasc - COPD no Symbicort - Hypothyroidism on levothyroxine - CKD stage III- hctz/losartan d/c, 07/16/19 BUN/Cr 14/1.10, encourage fluids - GI/DVT prophylaxis - pepcid/eliquis 2.5 mg BID x 14 days, with last dose on 07/23/19 at HS - Postoperative anemia and thrombocytopenia- on 07/16/19 Hgb 10.9, PLT 228, - Medical management per hospitalist-consult - Bowel protocol - Fall Precautions - F/U with Dr. Diaz on 07/22/19 @ 3986 and PCP
[2019-07-16 18:38] VITALS: BP 132/78; PULSE 90; RESP 16; TEMP 36.8; O2SAT 100
[2019-07-16 19:46] VITALS: PULSE 82; RESP 18; O2SAT 96
[2019-07-16] MEDS: LORazepam 0.5 MG Tablet PO (21:20)
[2019-07-17] MEDS: Levothyroxine 75 MCG Tablet PO (06:21)
[2019-07-17 07:00] VITALS: BP 150/84; PULSE 88; RESP 16; TEMP 36.9; O2SAT 96
[2019-07-17] MEDS: APIXABAN 2.5 MG TABLET PO ×2 (07:29→21:36)
[2019-07-17] MEDS: Multivitamins,Therapeutic Tablet 1 TABLET PO (07:29)
[2019-07-17] MEDS: Fluticasone/Salmeterol 232-14 Inhaler 1 PUFF IH ×2 (07:29→21:35)
[2019-07-17] MEDS: HYDROcodone Bitartrate/Apap 5/325 Tablet PO ×2 (07:29→21:36)
[2019-07-17] MEDS: amLODIPine 5 MG Tablet PO ×2 (07:29→10:16)
[2019-07-17 08:40] VITALS: BP 131/67
--- NOTE | 2019-07-17 09:40 | PN.NEURO_ITS ---
Subjective: Per nursing, no issues overnight. Increase norvasc to 10 mg d/t elevated blood pressures in am. Patient pain is controlled and is tolerating therapies well. Denies further questions or concerns. - Physical Exam General: Alert, Oriented x3, Cooperative HEENT: Atraumatic, PERRLA Oral: Moist Mucosa Neck: Supple, No JVD Lungs: Clear to auscultation, Normal air movement Cardiovascular: Regular rate, Regular Rhythm Abdomen: Bowel Sounds Present, Soft, Non Tender Extremities: No clubbing, No cyanosis, - - mild to left knee and LLE Skin: - - harshad intact to left knee, without redness or drng Neurological: Cranial nerves II-XII grossly intact, Deep Tendon Reflexes 2+/4 and Symmetrical, Motor Exam 5/5 strength throughout Psych/Mental Status: Normal Affect, Appropriate, Alert and oriented to time, place, person, mood and affect Vital Signs Temp Pulse Resp BP Pulse Ox 98.4 F 88 16 150/84 H 96 07/17/19 07:00 07/17/19 07:00 07/17/19 07:00 07/17/19 07:00 07/17/19 07:00 Oxygen Delivery Method Room Air Weight: 97.9 kg Body Mass Index (BMI) 34.1 Intake and Output for Last 24 Hours 07/15/19 07/16/19 07/17/19 23:59 23:59 23:59 Intake Total 220 / 220 Output Total 200 / 200 Balance -200 / -200 220 / 220 Medical Necessity - Tobacco Use Smoking Status: Former smoker - Smoked 64 years 1/2 -1 pack/day , cessation 2018 Tobacco Use: Cigarettes Assessment/Plan All Active Problems (Last Updated 10/25/18 @ 13:52 by Katherin Barron) Status post total left knee replacement (Acute) The patient is a 78 year old F with PMH of HTN, COPD, Hypothyroidism with HX of Cervical CA post hysterectomy in 1974. Patient presented to [facility] for debility secondary right total knee arthroplasty for greater than 3 hours of therapy with a goal of returning home at or near level of independence. Patient had a Right total knee arthroplasty done on 07/09/[address] 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 On 07/10/19 BUN/Cr 17/1.43, today BUN/Cr 21/1.45, received IV fluids and HCTZ/losartan on hold for renal insufficiency- stable. Patient lives alone in a one level house with one step to enter. Prior to hospitalization, patient was independent with all ADLs, mobility and driving. - PT for mobility - OT for ADLs - Analgesics as needed - S/P Left total knee arthroplasty- polar care as needed, WBAT, abd drsg to incision- change daily, harshad to be discontinued at f/u appt on 07/22/19 @ 6061. - HTN - increase norvasc to 10 mg - COPD no Symbicort - Hypothyroidism on levothyroxine - CKD stage III- hctz/losartan d/c, 07/16/19 BUN/Cr 14/1.10, recheck bmp on 07/19- encourage fluids - GI/DVT prophylaxis - pepcid/eliquis 2.5 mg BID x 14 days, with last dose on 07/23/19 at HS - Postoperative anemia and thrombocytopenia- on 07/16/19 Hgb 10.9, PLT 228, recheck cbc 07/19 - Medical management per hospitalist-consult - Bowel protocol - Fall Precautions - F/U with Dr. Diaz on 07/22/19 @ 8699 and PCP
--- NOTE | 2019-07-17 14:57 | PCM.PN.HOSP ---
Subjective: Patient complain of left leg pedal edema after left TKR. Patient has Rajan wrap bandage. Denies chest pain, shortness of breath, palpitation, abdominal pain. Denies lower urinary tract symptoms. Has good bowel movement. Vitals/I&O's: Vital Signs Temp Pulse Resp BP Pulse Ox 98.4 F 88 16 131/67 H 96 07/17/19 07:00 07/17/19 07:00 07/17/19 07:00 07/17/19 08:40 07/17/19 07:00 Oxygen Delivery Method Room Air Weight: 215 lb 13.321 oz Body Mass Index (BMI) 34.1 Intake and Output for Last 24 Hours 07/15/19 07/16/19 07/17/19 23:59 23:59 23:59 Intake Total 220 / 220 Output Total 200 / 200 Balance -200 / -200 220 / 220 General: Alert, Oriented x3, Cooperative HEENT: Atraumatic, PERRLA, EOMI, Normocephalic Neck: Supple, No JVD, Negative Carotid Bruits Lungs: Clear to auscultation, Normal air movement, No rhonchi, No wheeze, No rales Cardiovascular: Regular rate, Regular Rhythm, Normal S1, Normal S2, No murmurs Abdomen: Bowel Sounds Present, Soft, Non Tender, Non-Distended Extremities: Capillary Refill Less than 3 Seconds, Edema - Mild left ankle edema. Skin: No rashes, No breakdown, Ulcer/ Wound Musculoskeletal: No Tenderness to Palpation of Joints or Extremities, Arthritic Changes, - - Has Rajan wrap bandage on left lower leg. Surgical dressing is dry. Neurological: Cranial nerves II-XII grossly intact Psych/Mental Status: Normal Affect, Appropriate Current Medications Hydrocodone Bitart/Acetaminophen ([place] 5mg-325mg) 1 - 2 tablet PO Q4H PRN PRN PRN Reason: PAIN Last Admin: 07/17/19 07:29 Dose: 1 tablet Documented by: Amlodipine Besylate (Norvasc) 10 mg PO DAILY ROBERTO Apixaban (Eliquis) 2.5 mg PO BID ROBERTO Stop: 07/23/19 22:01 Last Admin: 07/17/19 07:29 Dose: 2.5 mg Documented by: Bisacodyl (Dulcolax) 10 mg RECTAL .PRN X 1 PRN PRN Reason: Constipation Last Admin: 07/12/19 20:25 Dose: 10 mg Documented by: Calcium Carbonate (Tums) 1,000 mg PO Q6H PRN PRN PRN Reason: INDIGESTION Last Admin: 07/13/19 11:14 Dose: 1,000 mg Documented by: Levothyroxine Sodium (Synthroid) 75 mcg PO DAILY@0600 [facility] Last Admin: 07/17/19 06:21 Dose: 75 mcg Documented by: Lorazepam (Ativan) 0.5 - 1 mg PO QHS PRN PRN PRN Reason: Insomnia Last Admin: 07/16/19 21:20 Dose: 0.5 mg Documented by: Magnesium Hydroxide (Milk Of Magnesia) 30 ml PO .PRN X 1 PRN PRN Reason: Constipation Last Admin: 07/12/19 13:17 Dose: 30 ml Documented by: Multivitamins (Multivitamin) 1 tablet PO DAILY@0800 [facility] Last Admin: 07/17/19 07:29 Dose: 1 tablet Documented by: Fluticasone/Salmeterol (Fluticasone-Salmeterol [id number]) 1 puff IH Q12 [facility] Last Admin: 07/17/19 07:29 Dose: 1 puff Documented by: Senna/Docusate Sodium (Senokot-S, Dinah-Colace) 2 tablet PO BID [facility] Last Admin: 07/17/19 07:31 Dose: Not Given Documented by: Sodium Chloride () 10 - 40 ml IV UD PRN PRN Reason: SALINE FLUSH Throat Lozenges (Cepacol Sore Throat Lozenge) 1 lozenge MUCOUS MEM Q2H PRN PRN PRN Reason: SORE THROAT Last Admin: 07/14/19 18:41 Dose: 1 lozenge Documented by: Medical Necessity - Tobacco Use Smoking Status: Former smoker - Smoked 64 years 1/2 -1 pack/day , cessation 2018 Tobacco Use: Cigarettes Assessment/Plan All Active Problems (Last Updated 10/25/18 @ 13:52 by Katherin Barron) Status post total left knee replacement (Acute) This is a 78 years old female is being admitted to inpatient rehab for elective left TKR for left total knee degenerative arthritis. 1. Left degenerative arthritis status post TKR on 07/09/[address] Diaz after failed conservative management. Continue pain medication, PT and OT. [place] as needed for severe pain. Heart rate and blood pressure more controlled. 2 Stage III chronic kidney disease: It is most likely secondary to HCTZ and losartan that patient has been on since October,. Creatinine came down to 1.16, improved. Losartan and HCTZ discontinued. She was started on Norvasc for hypertension. Kidney function improving. Labs reviewed. BUN/creatinine on baseline 19/11.1. 3. Acute blood loss postsurgical anemia/thrombocytopenia: Likely because of blood loss during surgery and patient has been receiving IV fluids. Hemoglobin was 13.3 before surgery and it was 10.4 g/dL on 07/12. No evidence of active bleeding. H&H 10.9/34. Platelet count 228. 4. Mild left ankle edema unilateral mainly postsurgical after left TKR probably from local because of decreased calf muscle pump: Conservative management. Patient is on PT and OT. Patient had Rajan wrap bandage. If it gets worse we will start on Lasix but currently does not need as she is recovering from acute renal insult with Cr 1.45 from 07/11. hypertension: Blood pressure stable, continue Norvasc. 5 hypothyroidism: TSH was normal last month, continue levothyroxine. 6 COPD: Patient admitted that she is legally short of breath on physical therapy secondary to COPD. No tachypnea or hypoxia. Respiratory rate 12 to 16/min. Continue Advair. Patient quit smoking years ago. 7 DVT prophylaxis: Continue Eliquis. Active Medications Hydrocodone Bitart/Acetaminophen ([place] 5mg-325mg) 1 - 2 tablet PO Q4H PRN PRN PRN Reason: PAIN Last Admin: 07/17/19 07:29 Dose: 1 tablet Documented by: Amlodipine Besylate (Norvasc) 10 mg PO DAILY ROBERTO Apixaban (Eliquis) 2.5 mg PO BID ROBERTO Stop: 07/23/19 22:01 Last Admin: 07/17/19 07:29 Dose: 2.5 mg Documented by: Bisacodyl (Dulcolax) 10 mg RECTAL .PRN X 1 PRN PRN Reason: Constipation Last Admin: 07/12/19 20:25 Dose: 10 mg Documented by: Calcium Carbonate (Tums) 1,000 mg PO Q6H PRN PRN PRN Reason: INDIGESTION Last Admin: 07/13/19 11:14 Dose: 1,000 mg Documented by: Levothyroxine Sodium (Synthroid) 75 mcg PO DAILY@0600 [facility] Last Admin: 07/17/19 06:21 Dose: 75 mcg Documented by: Lorazepam (Ativan) 0.5 - 1 mg PO QHS PRN PRN PRN Reason: Insomnia Last Admin: 07/16/19 21:20 Dose: 0.5 mg Documented by: Magnesium Hydroxide (Milk Of Magnesia) 30 ml PO .PRN X 1 PRN PRN Reason: Constipation Last Admin: 07/12/19 13:17 Dose: 30 ml Documented by: Multivitamins (Multivitamin) 1 tablet PO DAILY@0800 [facility] Last Admin: 07/17/19 07:29 Dose: 1 tablet Documented by: Fluticasone/Salmeterol (Fluticasone-Salmeterol [id number]) 1 puff IH Q12 [facility] Last Admin: 07/17/19 07:29 Dose: 1 puff Documented by: Senna/Docusate Sodium (Senokot-S, Dinah-Colace) 2 tablet PO BID [facility] Last Admin: 07/17/19 07:31 Dose: Not Given Documented by: Sodium Chloride () 10 - 40 ml IV UD PRN PRN Reason: SALINE FLUSH Throat Lozenges (Cepacol Sore Throat Lozenge) 1 lozenge MUCOUS MEM Q2H PRN PRN PRN Reason: SORE THROAT Last Admin: 07/14/19 18:41 Dose: 1 lozenge Documented by: Code Visit Inpatient E&M: [id number] Subs Hosp L2
[2019-07-17 18:29] VITALS: BP 122/62; PULSE 89; RESP 16; TEMP 37.2; O2SAT 95
[2019-07-17] MEDS: LORazepam 0.5 MG Tablet PO (21:36)
[2019-07-18] MEDS: Levothyroxine 75 MCG Tablet PO (06:47)
[2019-07-18 07:06] VITALS: BP 130/70; PULSE 91; RESP 16; TEMP 36.8; O2SAT 96
[2019-07-18] MEDS: HYDROcodone Bitartrate/Apap 5/325 Tablet PO ×3 (07:17→21:23)
--- NOTE | 2019-07-18 09:16 | PN.NEURO_ITS ---
Subjective: Per nursing, no issues overnight. Patient continues to tolerate therapies well and pain is controlled. Denies further questions or concerns. - Physical Exam General: Alert, Oriented x3, Cooperative HEENT: Atraumatic, PERRLA Oral: Moist Mucosa Neck: Supple, No JVD Lungs: Clear to auscultation, Normal air movement Cardiovascular: Regular rate, Regular Rhythm Abdomen: Bowel Sounds Present, Soft, Non Tender Extremities: No clubbing, No cyanosis, Edema - mild to left knee and LLE Skin: Incision - harshad intact to left knee, without redness or drng Neurological: Cranial nerves II-XII grossly intact, Deep Tendon Reflexes 2+/4 and Symmetrical, Motor Exam 5/5 strength throughout Psych/Mental Status: Normal Affect, Appropriate, Alert and oriented to time, place, person, mood and affect Vital Signs Temp Pulse Resp BP Pulse Ox 98.2 F 91 16 130/70 H 96 07/18/19 07:06 07/18/19 07:06 07/18/19 07:06 07/18/19 07:06 07/18/19 07:06 Oxygen Delivery Method Room Air Weight: 97.9 kg Body Mass Index (BMI) 34.1 Intake and Output for Last 24 Hours 07/16/19 07/17/19 07/18/19 23:59 23:59 23:59 Intake Total 220 / 220 240 / 240 240 / 240 Balance 220 / 220 240 / 240 240 / 240 Medical Necessity - Tobacco Use Smoking Status: Former smoker - Smoked 64 years 1/2 -1 pack/day , cessation 2018 Tobacco Use: Cigarettes Assessment/Plan All Active Problems (Last Updated 10/25/18 @ 13:52 by Katherin Barron) Status post total left knee replacement (Acute) The patient is a 78 year old F with PMH of HTN, COPD, Hypothyroidism with HX of Cervical CA post hysterectomy in 1974. Patient presented to [facility] for debility secondary right total knee arthroplasty for greater than 3 hours of therapy with a goal of returning home at or near level of independence. Patient had a Right total knee arthroplasty done on 07/09/[address] 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 On 07/10/19 BUN/Cr 17/1.43, today BUN/Cr 21/1.45, received IV fluids and HCTZ/losartan on hold for renal insufficiency- stable. Patient lives alone in a one level house with one step to enter. Prior to hospit alization, patient was independent with all ADLs, mobility and driving. - PT for mobility - OT for ADLs - Analgesics as needed - S/P Left total knee arthroplasty- polar care as needed, WBAT, abd drsg to incision- change daily, harshad to be discontinued at f/u appt on 07/22/19 @ 2761. - HTN - norvasc to 10 mg - COPD no Symbicort - Hypothyroidism on levothyroxine - CKD stage III- hctz/losartan d/c, 07/16/19 BUN/Cr 14/1.10, recheck bmp on 07/19- encourage fluids - GI/DVT prophylaxis - pepcid/eliquis 2.5 mg BID x 14 days, with last dose on 07/23/19 at HS - Postoperative anemia and thrombocytopenia- on 07/16/19 Hgb 10.9, PLT 228, recheck cbc 07/19 - Medical management per hospitalist-consult - Bowel protocol - Fall Precautions - F/U with Dr. Diaz on 07/22/19 @ 9738 and PCP
[2019-07-18] MEDS: Fluticasone/Salmeterol 232-14 Inhaler 1 PUFF IH ×2 (11:05→21:24)
[2019-07-18] MEDS: APIXABAN 2.5 MG TABLET PO ×2 (11:06→21:24)
[2019-07-18] MEDS: amLODIPine 10 MG Tablet PO (11:06)
[2019-07-18] MEDS: Multivitamins,Therapeutic Tablet 1 TABLET PO (11:06)
[2019-07-18] MEDS: Famotidine 20 MG Tablet PO (17:09)
[2019-07-18 19:27] VITALS: BP 116/63; PULSE 80; RESP 18; TEMP 36.9; O2SAT 98
[2019-07-18] MEDS: LORazepam 0.5 MG Tablet PO (21:23)
[2019-07-19] MEDS: Levothyroxine 75 MCG Tablet PO (06:28)
[2019-07-19] MEDS: HYDROcodone Bitartrate/Apap 5/325 Tablet PO ×3 (06:30→20:46)
[2019-07-19 08:00] VITALS: BP 133/70; PULSE 90; RESP 18; TEMP 37.1; O2SAT 93
[2019-07-19] MEDS: Multivitamins,Therapeutic Tablet 1 TABLET PO (08:52)
[2019-07-19] MEDS: APIXABAN 2.5 MG TABLET PO ×2 (08:52→20:47)
[2019-07-19] MEDS: Famotidine 20 MG Tablet PO (08:52)
[2019-07-19] MEDS: amLODIPine 10 MG Tablet PO (08:52)
[2019-07-19] MEDS: Senna/Docusate Sodium 1 Tablet 2 TABLET PO ×2 (08:52→20:46)
[2019-07-19] MEDS: Fluticasone/Salmeterol 232-14 Inhaler 1 PUFF IH ×2 (08:55→20:47)
--- NOTE | 2019-07-19 09:02 | PCM.PN.NEU ---
Subjective: Per nursing, no issues overnight. Patient continues to tolerate therapies well and pain is controlled. Denies further questions or concerns. - Physical Exam General: Alert, Oriented x3, Cooperative HEENT: Atraumatic, PERRLA Oral: Moist Mucosa Neck: Supple, No JVD Lungs: Clear to auscultation, Normal air movement Cardiovascular: Regular rate, Regular Rhythm Abdomen: Bowel Sounds Present, Soft, Non Tender Extremities: No clubbing, No cyanosis, Edema - mild to left knee and LLE Skin: Incision - harshad intact to left knee,without redness or drng Neurological: Cranial nerves II-XII grossly intact, Deep Tendon Reflexes 2+/4 and Symmetrical, Motor Exam 5/5 strength throughout Psych/Mental Status: Normal Affect, Appropriate, Alert and oriented to time, place, person, mood and affect Vital Signs Temp Pulse Resp BP Pulse Ox 98.7 F 90 18 133/70 H 93 07/19/19 08:00 07/19/19 08:00 07/19/19 08:00 07/19/19 08:00 07/19/19 08:00 Oxygen Delivery Method Room Air Weight: 97.9 kg Body Mass Index (BMI) 34.1 Intake and Output for Last 24 Hours 07/17/19 07/18/19 07/19/19 23:59 23:59 23:59 Intake Total 240 / 240 600 / 600 180 / 180 Balance 240 / 240 600 / 600 180 / 180 Medical Necessity - Tobacco Use Smoking Status: Former smoker - Smoked 64 years 1/2 -1 pack/day , cessation 2018 Tobacco Use: Cigarettes Assessment/Plan All Active Problems (Last Updated 10/25/18 @ 13:52 by Katherin Barron) Status post total left knee replacement (Acute) The patient is a 78 year old F with PMH of HTN, COPD, Hypothyroidism with HX of Cervical CA post hysterectomy in 1974. Patient presented to [facility] for debility secondary right total knee arthroplasty for greater than 3 hours of therapy with a goal of returning home at or near level of independence. Patient had a Right total knee arthroplasty done on 07/09/[address] 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 On 07/10/19 BUN/Cr 17/1.43, today BUN/Cr 21/1.45, received IV fluids and HCTZ/losartan on hold for renal insufficiency- stable. Patient lives alone in a one level house with one step to enter. Prior to hospitalization, patient was independent with all ADLs, mobility and driving. - PT for mobility - OT for ADLs - Analgesics as needed - S/P Left total knee arthroplasty- polar care as needed, WBAT, abd drsg to incision- change daily, harshad d/c on 07/22/19, f/u appt with Dr. Diaz on 07/26 @ 1045 - HTN - norvasc to 10 mg - COPD no Symbicort - Hypothyroidism on levothyroxine - CKD stage III- hctz/losartan d/c, 07/16/19 BUN/Cr 14/1.10, encourage fluids - GI/DVT prophylaxis - pepcid/eliquis 2.5 mg BID x 14 days, with last dose on 07/23/19 at HS - Postoperative anemia and thrombocytopenia- on 07/16/19 Hgb 10.9, PLT 228 - Medical management per hospitalist-consult - Bowel protocol - Fall Precautions - F/U with Dr. Diaz on 07/26/19 @ 1045 and PCP
[2019-07-19 20:42] VITALS: BP 118/42; PULSE 82; RESP 16; TEMP 36.6; O2SAT 98
[2019-07-19] MEDS: LORazepam 0.5 MG Tablet PO (20:46)
[2019-07-20] MEDS: Levothyroxine 75 MCG Tablet PO (06:17)
[2019-07-20 07:24] VITALS: BP 140/77; PULSE 91; RESP 18; TEMP 37.1; O2SAT 95
[2019-07-20] MEDS: Multivitamins,Therapeutic Tablet 1 TABLET PO (07:42)
[2019-07-20] MEDS: APIXABAN 2.5 MG TABLET PO ×2 (07:42→20:12)
[2019-07-20] MEDS: amLODIPine 10 MG Tablet PO (07:42)
[2019-07-20] MEDS: Fluticasone/Salmeterol 232-14 Inhaler 1 PUFF IH ×2 (07:42→20:12)
[2019-07-20] MEDS: Famotidine 20 MG Tablet PO (07:42)
[2019-07-20] MEDS: HYDROcodone Bitartrate/Apap 5/325 Tablet PO ×2 (11:29→20:11)
[2019-07-20 18:53] VITALS: BP 132/63; PULSE 94; RESP 16; TEMP 36.6; O2SAT 97
--- NOTE | 2019-07-20 20:09 | NURSING ---
Pt requested hs meds early d/t fatigue. Pt refused stool softener after having 2 BMs today.
[2019-07-20] MEDS: LORazepam 0.5 MG Tablet PO (20:11)
[2019-07-20 22:00] VITALS: PULSE 72; RESP 16
[2019-07-21] MEDS: Levothyroxine 75 MCG Tablet PO (06:37)
[2019-07-21 07:03] VITALS: BP 147/86; PULSE 93; RESP 16; TEMP 36.7; O2SAT 98
[2019-07-21] MEDS: Multivitamins,Therapeutic Tablet 1 TABLET PO (07:54)
[2019-07-21 10:00] VITALS: PULSE 70
[2019-07-21] MEDS: APIXABAN 2.5 MG TABLET PO ×2 (10:29→20:05)
[2019-07-21] MEDS: amLODIPine 10 MG Tablet PO (10:29)
[2019-07-21] MEDS: Fluticasone/Salmeterol 232-14 Inhaler 1 PUFF IH ×2 (10:29→20:05)
[2019-07-21] MEDS: Famotidine 20 MG Tablet PO (10:29)
[2019-07-21] MEDS: HYDROcodone Bitartrate/Apap 5/325 Tablet PO ×2 (15:41→20:04)
[2019-07-21 17:58] VITALS: BP 127/68; PULSE 82; RESP 16; TEMP 36.4; O2SAT 97
[2019-07-21 19:45] VITALS: PULSE 82; RESP 16; O2SAT 97
[2019-07-21] MEDS: LORazepam 0.5 MG Tablet PO (20:04)
[2019-07-22] MEDS: HYDROcodone Bitartrate/Apap 5/325 Tablet PO ×3 (05:50→20:45)
[2019-07-22] MEDS: Levothyroxine 75 MCG Tablet PO (05:50)
--- NOTE | 2019-07-22 06:04 | NURSING ---
16 harshad were d/c'd from pt lt knee and pt tolerated procedure well . no drainage was noted and incision is well approximated
[2019-07-22 07:00] VITALS: BP 150/84; PULSE 84; RESP 16; TEMP 36.7; O2SAT 16
[2019-07-22] MEDS: Famotidine 20 MG Tablet PO (07:56)
[2019-07-22] MEDS: amLODIPine 10 MG Tablet PO (07:56)
[2019-07-22] MEDS: Multivitamins,Therapeutic Tablet 1 TABLET PO (07:56)
[2019-07-22] MEDS: APIXABAN 2.5 MG TABLET PO ×2 (07:56→20:36)
[2019-07-22] MEDS: Fluticasone/Salmeterol 232-14 Inhaler 1 PUFF IH ×2 (07:56→20:36)
--- NOTE | 2019-07-22 09:00 | PCM.PN.NEU ---
Subjective: Per nursing, no issues overnight. Staff team meeting today. Further details from PT/OT per their notes. Harshad were d/c to left knee this am. All questions answered. Patient will be d/c home on 07/25 with outpatient PT. - Physical Exam General: Alert, Oriented x3, Cooperative HEENT: Atraumatic, PERRLA Oral: Moist Mucosa Neck: Supple, No JVD Lungs: Clear to auscultation, Normal air movement Cardiovascular: Regular rate, Regular Rhythm Extremities: No clubbing, No cyanosis, Edema - mild to left knee, LLE Skin: Incision - left knee without redness or drng, PASTOR Neurological: Cranial nerves II-XII grossly intact, Deep Tendon Reflexes 2+/4 and Symmetrical, Motor Exam 5/5 strength throughout Psych/Mental Status: Normal Affect, Appropriate, Alert and oriented to time, place, person, mood and affect Vital Signs Temp Pulse Resp BP Pulse Ox 98.1 F 84 16 150/84 H 16 07/22/19 07:00 07/22/19 07:00 07/22/19 07:00 07/22/19 07:00 07/22/19 07:00 Oxygen Delivery Method Room Air Weight: 97.9 kg Body Mass Index (BMI) 34.1 Intake and Output for Last 24 Hours 07/20/19 07/21/19 07/22/19 23:59 23:59 23:59 Intake Total 740 / 740 720 / 720 Balance 740 / 740 720 / 720 Medical Necessity - Tobacco Use Smoking Status: Former smoker - Smoked 64 years 1/2 -1 pack/day , cessation 2018 Tobacco Use: Cigarettes Assessment/Plan All Active Problems (Last Updated 10/25/18 @ 13:52 by Katherin Barron) Status post total left knee replacement (Acute) The patient is a 78 year old F with PMH of HTN, COPD, Hypothyroidism with HX of Cervical CA post hysterectomy in 1974. Patient presented to [facility] for debility secondary right total knee arthroplasty for greater than 3 hours of therapy with a goal of returning home at or near level of independence. Patient had a Right total knee arthroplasty done on 07/09/[address] 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 On 07/10/19 BUN/Cr 17/1.43, today BUN/Cr 21/1.45, received IV fluids and HCTZ/losartan on hold for renal insufficiency- stable. Patient lives alone in a one level house with one step to enter. Prior to hospitalization, patient was independent with all ADLs, mobility and driving. - PT for mobility - OT for ADLs - Analgesics as needed - S/P Left total knee arthroplasty- polar care as needed, WBAT, abd drsg to incision- change daily, harshad d/c on 07/22/19, f/u appt with Dr. Diaz on 07/26 @ 1045 - HTN - norvasc to 10 mg - COPD no Symbicort - Hypothyroidism on levothyroxine - CKD stage III- hctz/losartan d/c, 07/16/19 BUN/Cr 14/1.10, encourage fluids - GI/DVT prophylaxis - pepcid/eliquis 2.5 mg BID x 14 days, with last dose on 07/23/19 at HS - Postoperative anemia and thrombocytopenia- on 07/16/19 Hgb 10.9, PLT 228 - Medical management per hospitalist-consult - Bowel protocol - Fall Precautions - F/U with Dr. Diaz on 07/26/19 @ 1045 and PCP, D/C home on 07/25 with outpatient PT
--- NOTE | 2019-07-22 09:34 | PCM.RU.PYE ---
Admission Information Status Changes from Prescreening?: No changes Identified Actual Problem List:: Pain, ALteration in Cmfrt, Alteration in Sleep, Mobility Impaired, Self Care Deficit, BP, Hypertension, Ineffect.D/C Plan r/t Psy Potential Problem List:: DVT, Bleeding, Infection, UTI, Aspiration, Falls, Skin Integrity, Depression Risk of Complications DVT: LMWH, PASCUAL Hose, Sequential Compression Device Bleeding: Monitor Lab Values, Nursing to Teach Precautions for anti-coagulation therapy., Wound, if applicable, to be assessed every shift., Stroke patients assessed for lethargy or change in status. Infection: Clinical Staff to Monitor for S/S of infection:, S/S of infection include fever, redness, warmth, etc. Urinary Tract Infection: Monitor for frequency, burning, discomfort, or incontinence., Nursing will obtain urine sample for urinalysis and C&S when ordered. Aspiration: Clinical staff will monitor for coughing, drooling, congestion., Speech will evaluate swallowing and dsyphasia., Nursing will monitor patient swallowing during meals. Falls: Patient will be evaluated for Fall Precautions, Patient will be placed on Fall Precautions as indicated per protocol. Skin Breakdown: Nursing will assess skin daily using assessment tool., Nursing will place on Skin Breakdown Precautions as indicated. Pain: Clinical staff will assess patient's pain level per protocol., Medications will be given, if needed, and the pain level reassessed., Other methods: Massage, distraction, decrease stimulus, etc. used PRN. Plan of Care Patient requires physician specializing in physical medicine and rehab oversight to provide close medical supervision of rehab issues including: Pain Management, Sleep Problems, Bowel and Bladder, Medical and co-morbidity Management, DVT prophylaxis, Rehabilitation Leadership, Coordination of treatment team Patient needs Physical Therapy: For a minimum of 1 hour, At least 5 out of 7 days Patient needs Physical Therapy to improve:: Mobility, Mobility, Mobility, Strengthening, Transfers, Stretching, ROM, Endurance, Stairs, Gait, Balance Patient needs Occupational Therapy: For a minimum of 1 hour, At least 5 out of 7 days Patient needs Occupational Therapy to improve ADL's incl.: Eating, Grooming, Bathing, Dressing, Toileting, Toilet transfers, Community Reintegration, Higher functioning activities, Household tasks, Adaptive Equipment, Splinting, Other activities as determined Patient requires 24/ Rehabilitation Nursing for: Pain Issues, Identifying and preventing risk factors, Monitoring and reporting current medical conditions, Assisting with ambulation, transfer, and all ADL's, Teaching patients about disease process and medications, Family teaching, Providing safe environment, Bowel and Bladder Issues, Skin integrity, Medication Management Patient needs Visual Artist/ Case Management for: Discharge Planning, Arranging Home Equipment or Services, Family Interventions Patient needs Dietary and Nutrition Services for: Adequate Nutrition, Nutritional Supplements, Nutritional Education Goals Patient will remain: free from falls, or injury at time of discharge. Patient will perform bed mobility at: MOD I level of assist. Patient will complete transfers from bed to chair at: MOD I level of assist. Patient will ambulate: 100 feet, with MOD I assist, with LRD Patient will complete upper body dressing at: MOD I level of assist. Patient will complete lower body dressing at: MOD I level of assist. Patient will complete toileting at: MOD I level of assist. Patient will perform bathing at: MOD I level of assist. Patient will complete grooming at: MOD I level of assist. Patient will complete home management skills at: MOD I level of assist. Patient will achieve: 12 stairs, at MOD I assist Patient will have pain level of: of 3 or less Patient's skin will: remain intact, free from infection. Patient will receive: adequate nutrition. Discharge Planning Pt Prognosis for Sig. Practical Improv. w/in Reasonable Time: Good Anticipated D/C Destination: Home with Outpt Therapy Was Preadmission Assessment Accurate?: Yes
--- NOTE | 2019-07-22 10:04 | CASEMGMT ---
Social Work IDT met with patient for Team Meeting. Discussed patient progressing well in therapy and sup/SBA for ADLS. Needing some assistance with tying shoes and SBA-CGA for stairs. Patient and IDT agree she will be ready to discharge home 07/25. Recommending outpatient PT - pt agrees and would like to go to [facility]. Provided transportation resources in case pt needs assistance. Pt needs no DME needs. Plan: DC home alone 07/25 with [facility] Outpatient PT. PALMIRA Valdez
[2019-07-22 11:05] VITALS: BP 121/66; PULSE 94
[2019-07-22 19:21] VITALS: BP 129/73; PULSE 94; RESP 16; TEMP 36.6; O2SAT 96
[2019-07-22] MEDS: LORazepam 0.5 MG Tablet PO (20:46)
[2019-07-22 20:51] VITALS: PULSE 94; RESP 16; O2SAT 96
[2019-07-23] MEDS: Levothyroxine 75 MCG Tablet PO (05:33)
[2019-07-23 07:00] VITALS: BP 155/83; PULSE 92; RESP 17; TEMP 36.7; O2SAT 97
[2019-07-23] MEDS: APIXABAN 2.5 MG TABLET PO ×2 (08:34→21:16)
[2019-07-23] MEDS: Multivitamins,Therapeutic Tablet 1 TABLET PO (08:34)
[2019-07-23] MEDS: Famotidine 20 MG Tablet PO (08:35)
[2019-07-23] MEDS: amLODIPine 10 MG Tablet PO (08:35)
[2019-07-23] MEDS: Fluticasone/Salmeterol 232-14 Inhaler 1 PUFF IH ×2 (08:35→21:16)
--- NOTE | 2019-07-23 09:04 | PN.NEURO_ITS ---
Subjective: Per nursing, no issues overnight. Hospitalist reviewed blood pressures, continue on norvasc, no new orders at this time. Patient continues to tolerate therapies and pain is controlled. Denies further questions or concerns. - Physical Exam General: Alert, Oriented x3, Cooperative HEENT: Atraumatic, PERRLA Oral: Moist Mucosa Neck: Supple, No JVD Lungs: Clear to auscultation, Normal air movement Cardiovascular: Regular rate, Regular Rhythm Abdomen: Bowel Sounds Present, Soft, Non Tender Extremities: No clubbing, No cyanosis, Edema - mild to left knee Skin: Incision - left knee without redness or drng Neurological: Cranial nerves II-XII grossly intact, Deep Tendon Reflexes 2+/4 and Symmetrical, Motor Exam 5/5 strength throughout Psych/Mental Status: Normal Affect, Appropriate, Alert and oriented to time, place, person, mood and affect Vital Signs Temp Pulse Resp BP Pulse Ox 98.1 F 92 17 155/83 H 97 07/23/19 07:00 07/23/19 07:00 07/23/19 07:00 07/23/19 07:00 07/23/19 07:00 Oxygen Delivery Method Room Air Weight: 97.9 kg Body Mass Index (BMI) 34.1 Intake and Output for Last 24 Hours 07/21/19 07/22/19 07/23/19 23:59 23:59 23:59 Intake Total 720 / 720 Balance 720 / 720 Medical Necessity - Tobacco Use Smoking Status: Former smoker - Smoked 64 years 1/2 -1 pack/day , cessation 2018 Tobacco Use: Cigarettes Assessment/Plan All Active Problems (Last Updated 10/25/18 @ 13:52 by Katherin Barron) Status post total left knee replacement (Acute) The patient is a 78 year old F with PMH of HTN, COPD, Hypothyroidism with HX of Cervical CA post hysterectomy in 1974. Patient presented to [facility] for debility secondary right total knee arthroplasty for greater than 3 hours of therapy with a goal of returning home at or near level of independence. Patient had a Right total knee arthroplasty done on 07/09/[address] 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 On 07/10/19 BUN/Cr 17/1.43, today BUN/Cr 21/1.45, received IV fluids and HCTZ/losartan on hold for renal insufficiency- stable. Patient lives alone in a one level house with one step to enter. Prior to hospitalization, patient was independent with all ADLs, mobility and driving. - PT for mobility - OT for ADLs - Analgesics as needed - S/P Left total knee arthroplasty- polar care as needed, WBAT, abd drsg to incision- change daily, harshad d/c on 07/22/19, f/u appt with Dr. Diaz on 07/26 @ 1045 - HTN - on norvasc - COPD no Symbicort - Hypothyroidism on levothyroxine - CKD stage III- hctz/losartan d/c, 07/16/19 BUN/Cr 14/1.10, encourage fluids - GI/DVT prophylaxis - pepcid/eliquis 2.5 mg BID x 14 days, with last dose on 07/23/19 at HS - Postoperative anemia and thrombocytopenia- on 07/16/19 Hgb 10.9, PLT 228 - Medical management per hospitalist-consult - Bowel protocol - Fall Precautions - F/U with Dr. Diaz on 07/26/19 @ 1045 and PCP, D/C home on 07/25 with outpati ent PT
--- NOTE | 2019-07-23 09:36 | NURSING ---
Dr. Maynard reviewed BP and VS and no changes will be made to any medications at this time. Patient doing well with therapy and will be going home this week.
[2019-07-23 11:00] VITALS: BP 136/86; PULSE 89
[2019-07-23] MEDS: HYDROcodone Bitartrate/Apap 5/325 Tablet PO ×2 (11:12→21:16)
[2019-07-23 19:38] VITALS: BP 121/54; PULSE 77; RESP 17; TEMP 36.9; O2SAT 94
[2019-07-23 20:31] VITALS: PULSE 77; RESP 17; O2SAT 94
[2019-07-23] MEDS: Senna/Docusate Sodium 1 Tablet 2 TABLET PO (21:16)
[2019-07-23] MEDS: LORazepam 0.5 MG Tablet PO (21:17)
[2019-07-24] MEDS: Levothyroxine 75 MCG Tablet PO (06:43)
[2019-07-24 07:00] VITALS: BP 143/76; PULSE 80; RESP 16; TEMP 36.6; O2SAT 97
[2019-07-24] MEDS: Fluticasone/Salmeterol 232-14 Inhaler 1 PUFF IH ×2 (08:08→20:27)
[2019-07-24] MEDS: Multivitamins,Therapeutic Tablet 1 TABLET PO (08:09)
[2019-07-24] MEDS: HYDROcodone Bitartrate/Apap 5/325 Tablet PO ×2 (08:09→20:28)
[2019-07-24] MEDS: Famotidine 20 MG Tablet PO (08:09)
[2019-07-24] MEDS: Senna/Docusate Sodium 1 Tablet 2 TABLET PO (08:09)
[2019-07-24] MEDS: amLODIPine 10 MG Tablet PO (08:09)
--- NOTE | 2019-07-24 09:07 | PCM.PN.NEU ---
Subjective: Per nursing, no issues overnight. Patient will be discharged home on 07/25/19. Patient continues to tolerate therapies and pain is controlled. Denies further questions or concerns. - Physical Exam General: Alert, Oriented x3, Cooperative HEENT: Atraumatic, PERRLA Oral: Moist Mucosa Neck: Supple, No JVD Lungs: Clear to auscultation, Normal air movement Cardiovascular: Regular rate, Regular Rhythm Abdomen: Bowel Sounds Present, Soft, Non Tender Extremities: No clubbing, No cyanosis, No edema Skin: Incision - left knee without redness or drng-healing Neurological: Cranial nerves II-XII grossly intact, Deep Tendon Reflexes 2+/4 and Symmetrical, Motor Exam 5/5 strength throughout Psych/Mental Status: Normal Affect, Appropriate, Alert and oriented to time, place, person, mood and affect Vital Signs Temp Pulse Resp BP Pulse Ox 97.9 F 80 16 143/76 H 97 07/24/19 07:00 07/24/19 07:00 07/24/19 07:00 07/24/19 07:00 07/24/19 07:00 Oxygen Delivery Method Room Air Weight: 94.5 kg Body Mass Index (BMI) 34.1 Intake and Output for Last 24 Hours 07/22/19 07/23/19 07/24/19 23:59 23:59 23:59 Intake Total 240 / 240 Balance 240 / 240 Medical Necessity - Tobacco Use Smoking Status: Former smoker - Smoked 64 years 1/2 -1 pack/day , cessation 2018 Tobacco Use: Cigarettes Assessment/Plan All Active Problems (Last Updated 10/25/18 @ 13:52 by Katherin Barron) Status post total left knee replacement (Acute) The patient is a 78 year old F with PMH of HTN, COPD, Hypothyroidism with HX of Cervical CA post hysterectomy in 1974. Patient presented to [facility] for debility secondary right total knee arthroplasty for greater than 3 hours of therapy with a goal of returning home at or near level of independence. Patient had a Right total knee arthroplasty done on 07/09/[address] 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 On 07/10/19 BUN/Cr 17/1.43, today BUN/Cr 21/1.45, received IV fluids and HCTZ/losartan on hold for renal insufficiency- stable. Patient lives alone in a one level house with one step to enter. Prior to hospitalization, patient was independent with all ADLs, mobility and driving. - PT for mobility - OT for ADLs - Analgesics as needed - S/P Left total knee arthroplasty- polar care as needed, WBAT, abd drsg to incision- change daily, harshad d/c on 07/22/19, f/u appt with Dr. Diaz on 07/26 @ 1045 - HTN - on norvasc - COPD no Symbicort - Hypothyroidism on levothyroxine - CKD stage III- hctz/losartan d/c, 07/16/19 BUN/Cr 14/1.10, encourage fluids - GI/DVT prophylaxis - pepcid/eliquis 2.5 mg BID x 14 days, with last dose on 07/23/19 at HS - Postoperative anemia and thrombocytopenia- on 07/16/19 Hgb 10.9, PLT 228 - Medical management per hospitalist-consult - Bowel protocol - Fall Precautions - F/U with Dr. Diaz on 07/26/19 @ 1045 and PCP, D/C home on 07/25 with outpatient PT
--- NOTE | 2019-07-24 09:38 | PCM.DC ---
- Discharge Diagnoses Reason(s) for Visit for Discharge Instructions: Debility secondary to Left total knee arthroplasty You will use the following diet at home:: Regular Your food should be the consistency of: Regular Your liquids should be the consistency of: Regular/Thin Discharge Activity: Return to Normal Activity, May Not Drive, May Shower, Use Walker Weight Bearing Status: Weight bearing as tolerated Call your doctor if your incision/area has: Continuous Slow Oozing, Sudden Increased Bleeding, Increased Pain/ Swelling, Increased Redness, Foul Smelling Discharge, Swelling at the incision site Call your doctor if you observe: Fever of 101 or Higher, Coldness, Increased Pain, Numbness or Tingling, Inability to urinate, Inability to have a bowel movement, Shortness of breath, Dizziness, Fainting spells, Swelling in the ankles, Chest pain, Prolonged hiccoughing, Increased palpitations (irregular heartbeat), Calf discomfort, Uncontrolled pain Cleanse incision/area with: Soap & Water Allergies/Adverse Reactions: Allergies No Known Allergies Allergy (Verified 07/09/19 09:50) Medications to take at Discharge Amlodipine [Norvasc] 10 mg PO DAILY #30 tab 07/24/19 Fluticasone/Salmeterol [Fluticasone-Salmeterol 232-14] 1 puff IH Q12 inhaler 07/24/19 Hydrocodone Bitart/Apap 5-325 [[place] 5/325] 1 - 2 tablet PO Q6H PRN PRN 5 Days #40 tablet 07/24/19 Levothyroxine [Synthroid] 75 mcg PO DAILY@0600 tablet 07/24/19 Multivitamins,Therapeutic [Multivitamin] 1 tablet PO DAILY@0800 tablet 07/24/19 The following prescriptions were given: Hydrocodone Bitart/Apap 5-325 [[place] 5/325] 1 - 2 tablet PO Q6H PRN PRN 5 Days #40 tablet PRN Reason: Pain Transmission Status: Received by [facility] Amlodipine [Norvasc] 10 mg PO DAILY #30 tab Transmission Status: Pending to [facility] Primary Care Physician: Katherin Aguirre MD [Primary Care Provider] - Please follow up with your Primary Care Physician in: call to schedule appoinment at discharge Test Results: Test results from this visit will be discussed in further detail at your follow-up appointment, if applicable. Please Follow Up With: Dr. Orion Diaz When: 07/26/2019 @ 10:45 am Please Follow Up With: [facility] - [phone] Proposed Discharge Date: 07/25/19
[2019-07-24 18:48] VITALS: BP 137/77; PULSE 81; RESP 16; TEMP 36.6; O2SAT 99
[2019-07-24] MEDS: LORazepam 0.5 MG Tablet PO (20:27)
[2019-07-25] MEDS: Levothyroxine 75 MCG Tablet PO (06:39)
[2019-07-25] MEDS: Famotidine 20 MG Tablet PO (07:29)
[2019-07-25] MEDS: Multivitamins,Therapeutic Tablet 1 TABLET PO (07:29)
[2019-07-25] MEDS: amLODIPine 10 MG Tablet PO (07:29)
[2019-07-25] MEDS: Fluticasone/Salmeterol 232-14 Inhaler 1 PUFF IH (07:31)
[2019-07-25 07:33] VITALS: BP 117/57; PULSE 79; RESP 16; TEMP 36.4; O2SAT 98
--- NOTE | 2019-07-25 09:02 | DS.PCM_ITS ---
Rehab Discharge Summary DATE OF ADMISSION: 07/11/19 DATE OF DISCHARGE: 07/25/19 - Rehab Diagnosis Debility secondary to left total knee arthroplasty Subjective: Pain is controlled. Denies questions or concerns. Patient will be discharged home today. - Physical Exam General: Alert, Oriented x3, Cooperative HEENT: Atraumatic, PERRLA Oral: Moist Mucosa Neck: Supple, No JVD Lungs: Clear to auscultation, Normal air movement Cardiovascular: Regular rate, Regular Rhythm Abdomen: Bowel Sounds Present, Soft, Non Tender Extremities: No clubbing, No cyanosis, No edema Skin: Incision - left knee without redness or drng-healing Neurological: Cranial nerves II-XII grossly intact, Deep Tendon Reflexes 2+/4 and Symmetrical, Motor Exam 5/5 strength throughout Psych/Mental Status: Normal Affect, Appropriate, Alert and oriented to time, place, person, mood and affect Vital Signs Temp Pulse Resp BP Pulse Ox 97.6 F L 79 16 117/57 L 98 07/25/19 07:33 07/25/19 07:33 07/25/19 07:33 07/25/19 07:33 07/25/19 07:33 Oxygen Delivery Method Room Air Weight: 94.5 kg Body Mass Index (BMI) 34.1 Intake and Output for Last 24 Hours 07/23/19 07/24/19 07/25/19 23:59 23:59 23:59 Intake Total 480 / 480 240 / 240 Balance 480 / 480 240 / 240 Discharge Diet: No Restrictions Discharge Activity: Return to Normal Activity, May Not Drive, May Shower, Use Walker Weight Bearing Status: Weight bearing as tolerated Call your doctor if your incision/area has: Continuous Slow Oozing, Sudden Increased Bleeding, Increased Pain/ Swelling, Increased Redness, Foul Smelling Discharge, Swelling at the incision site Call your doctor if you observe: Fever of 101 or Higher, Coldness, Increased Pain, Numbness or Tingling, Inability to urinate, Inability to have a bowel movement, Shortness of breath, Dizziness, Fainting spells, Swelling in the ankles, Chest pain, Prolonged hiccoughing, Increased palpitations (irregular heartbeat), Calf discomfort, Uncontrolled pain Cleanse incision/area with: Soap & Water Home Medications: Medications to take at Discharge Amlodipine [Norvasc] 10 mg PO DAILY #30 tab 07/24/19 Fluticasone/Salmeterol [Fluticasone-Salmeterol 232-14] 1 puff IH Q12 inhaler 07/24/19 Hydrocodone Bitart/Apap 5-325 [[place] 5/325] 1 - 2 tab PO Q6H PRN PRN 5 Days #40 tab 07/24/19 Levothyroxine [Synthroid] 75 mcg PO DAILY@0600 tab 07/24/19 Multivitamins,Therapeutic [Multivitamin] 1 tab PO DAILY@0800 tab 07/24/19 Following Prescrptions Were Given to Patient: Hydrocodone Bitart/Apap 5-325 [[place] 5/325] 1 - 2 tab PO Q6H PRN PRN 5 Days #40 tab PRN Reason: Pain Transmission Status: Received by [facility] Amlodipine [Norvasc] 10 mg PO DAILY #30 tab Transmission Status[facility] Primary Care Physician: Katherin Aguirre MD [Primary Care Provider] - Please follow up with your Primary Care Physician in: call to schedule appoinment at discharge Please Follow Up With: Dr. Orion Diaz When: 07/26/2019 @ 10:45 am Please Follow Up With: [facility] - [phone] Disposition: Home Patient Condition:: Stable Rehab Course Patient is a 78 year old F with PMH of HTN, COPD, Hypothyroidism with HX of Cervical CA post hysterectomy in 1974. Patient presented to [facility] for debility secondary right total knee arthroplasty for greater than 3 hours of therapy with a goal of returning home at or near level of independence. Patient had a Right total knee arthroplasty done on 07/09/[address] 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 On 07/10/19 BUN/Cr 17/1.43, today BUN/Cr 21/1.45, received IV fluids and HCTZ/losartan discontinued for renal insufficiency- stable. Patient lives alone in a one level house with one step to enter. Prior to hospitalization, patient was independent with all ADLs, mobility and driving. Rehab course was uncomplicated. Patient was started on norvasc, blood pressure stable. Postoperative anemia, renal insufficiency and thrombocytopenia resolved. On 07/16/19 BUN/Cr 14/1.10,Hgb 10.9, PLT 228. Eliquis for DVT prophylaxis completed on 07/23/2019. [place] to left knee was discontinued on 07/25/2019, incision healing without signs or symptoms of infection noted. Pain well controlled. Patient discharged home on 07/25/2019 with outpatient PT. Patient to f/u with PCP and Dr. Diaz on 07/26/19 at 1045. Meaningful Use Info Meaningful Use Diagnoses (Choose all that apply): None applicable
[2019-07-25 10:49] VITALS: BP 122/67; PULSE 80; RESP 18; TEMP 36.6; O2SAT 98
[2019-07-25 10:54] VITALS: BP 122/67; PULSE 80; RESP 18; TEMP 36.6; O2SAT 98
== END 2019-07-25 10:56 | disposition home or self-care (01) | DRG 560 ==
PROVIDERS: Hospitalist; Nurse Practitioner Family; Admitting Provider Psychiatry & Neurology Neurology; Family Provider Family Medicine; PCP Family Medicine; Referring Provider Psychiatry & Neurology Neurology
DX: Z47.1 Aftercare following joint replacement surgery (principal); D62 Acute posthemorrhagic anemia; Z96.652 Presence of left artificial knee joint; J44.9 Chronic obstructive pulmonary disease, unspecified; E03.9 Hypothyroidism, unspecified; N18.3 Chronic kidney disease, stage 3 (moderate); I12.9 Hypertensive chronic kidney disease with stage 1 through stage 4 chronic kidney disease, or unspecified chronic kidney disease; Z87.891 Personal history of nicotine dependence; D69.6 Thrombocytopenia, unspecified
CPT/HCPCS: 36415; 80048; 85025; 85610; 97110; 97116; 97162; 97166; 97530; 97535; 97802

== ENCOUNTER 2019-09-04 12:00 | Outpatient (RCR) | payer MEDICARE, OTHER, SELFPAY ==
[2019-07-26 10:50] VITALS: BMI 34.1
--- NOTE | 2019-08-01 13:21 | HP.PTEVAL_ITS ---
Patient's Visit Information MARIA ELENA THOMPSON is a 78 year old F referred to Physical Therapy by YAZMIN VargasC with a diagnosis of L TKA. Date of Evaluation: 08/01/19 Physical Therapist: Junior Fleming, PT, ATC - Visit Plan Frequency: 2-3x /Week Duration: 4-6 Weeks Plan: L knee stretching and strengthening, balance and proprio, core stab, PROM/mobs, nustep, and HEP - Subjective Findings: L TKA 07/09/19; previous repair surgery that was not successful, led to TKA; Getting in/out of car is easier for pt.; in/out of therapy for a week. Surgery was 3 weeks ago; already noticing differences; [facility]; not comfortable not using walker even at home. Pain @ rest: 0/10; No other pain reported; pt. reports taking minimal pian meds; if it does hurt pt take Tylenol. Pt. lives along; able to to do laundry, take care of pets; walks down stairs one step at a time; one story; able kinga ambualtion in community. Compression brace was too tight; woke pt. up during night; pain does not wake pt up. No numbness/tingling in leg - Pain L knee Pain Intensity (Out of 10): 0 Pain Intensity Range: 3 - Objective Neuro: B LE sensation is WNL to light touch. B achilles reflex= 2/3. Girth at joint line: L knee 47 cm, R knee 45 cm. ROM: R knee 0-15-102. L knee 0-22-99. MMT: R knee 5/5 throughout. L knee 3+/5 throughout. Gait: Pt ambulates with a slow cadance. WW for AD. - Goals Goal 1:: Decrease L knee pain x 50% to aid with sleep Goal Time Frame: 4-6 Weeks Goal 2:: Increase L knee strength x 1 grade to aid with stair negotiation Goal Time Frame: 4-6 Weeks Goal 3:: Increase L knee ROM x 20 degrees to aid with restoring a more normal gait pattern Goal Time Frame: 4-6 Weeks Goal 4:: I with HEP Goal Time Frame: 4-6 Weeks - Rehabilitation Potential Physical Therapy Diagnosis: L knee pain, swelling, and weakness secondary to L TKA Rehabilitation Potential: Good - Anticipated Interventions Patient/Client Instruction: Educate patient on: Condition, Plan of Care For the Purpose of:: To improve self management Therapeutic Exercise to Include: Strength training, Endurance training, Balance training, Flexibilty training, Gait and locomotor training, Passive ROM, Active ROM, Dynamic Lumbar Stabilization For the Purpose of:: To decrease pain, To increase ROM, To improve muscle performance and motor function Cryotherapy (ice pack, ice massage): Yes For the Purpose of:: To decrease pain Thank you for the opportunity to evaluate your patient. For Medicare and Medicare HMO plans, please review the plan of care and approve it. It will need to be FAXED BACK to us at [phone] for Medicare purposes. For Medicare only, by signing this I certify the plan of care. Please let me know if there are questions or concerns regarding this plan of care. Physician Signature: Date:
--- NOTE | 2019-09-04 12:29 | HP.PTDCSUM ---
HP - PT D/C Summary It has been my pleasure to treat MARIA ELENA THOMPSON under orders from Demi Orozco, YONATHAN-C, for the diagnosis of L TKA for a total of 13 visit(s). Discharge Date: Please see the following information for a summary of their discharge status. - Subjective Subjective: Pt feels as though she is ready for discharge - Pain L knee Pain Intensity (Out of 10): 0 - Overall Improvement % Improvement: 75 - Objective Objective/Function: L knee pain 0/10. L knee MMT: 4/5 throughout. L knee ROM: 0-7-119. I with HEP. Rx goals achieved - Goals Goal 1:: Decrease L knee pain x 50% to aid with sleep Goal Progress: Goal Met Goal 2:: Increase L knee strength x 1 grade to aid with stair negotiation Goal Progress: Goal Met Goal 3:: Increase L knee ROM x 20 degrees to aid with restoring a more normal gait pattern Goal Progress: Goal Met Goal 4:: I with HEP Goal Progress: Goal Met - Plan Plan: Discharge - D/C Information If there are questions or concerns regarding this patient's physical therapy, please feel free to call me at [phone]. Thank you for the referral of this patient. Sincerely, Junior Fleming, PT, ATC
== END 2019-09-04 19:00 | disposition home or self-care (01) ==
LOC: PT 12:00
PROVIDERS: Family Provider Family Medicine; PCP Family Medicine; Visit Provider Nurse Practitioner Family
DX: Z96.652 Presence of left artificial knee joint (principal)
CPT/HCPCS: 97110; 97161; 97530

== ENCOUNTER 2019-11-14 11:30 | Outpatient (RCR) | payer MEDICARE, OTHER, SELFPAY ==
[2019-10-07 12:46] VITALS: BMI 34.1
--- NOTE | 2019-11-14 12:01 | HP.PTEVAL ---
Patient's Visit Information MARIA ELENA THOMPSON is a 79 year old F referred to Physical Therapy by Orion Diaz DO with a diagnosis of Left TKR 07/09/19. Date of Evaluation: 10/16/19 Physical Therapist: Candace Ling DPT - Visit Plan Plan: Discharge to [facility] and misti chávez - Subjective Findings: Left TKR Jul 09, [address] Golden. Had PT was discharged Sep 04- then went back to see Dr. Golden last week who is concerned with her balance and that she is using a walker. Has been on a walker for over a year- her last fall was this summer. She does not remember tripping she just falls down. She lives alone and is fully I with all ADL's. She reports that she has no pain in the knee. She is just very dependent on her walker- so she is up a lot at night. Does not use a walker in the house on a daily basis. When she goes out she uses a walker- does not feel stable. - Anticipated Interventions Thank you for the opportunity to evaluate your patient. For Medicare and Medicare HMO plans, please review the plan of care and approve it. It will need to be FAXED BACK to us at [phone] for Medicare purposes. For Medicare only, by signing this I certify the plan of care. Please let me know if there are questions or concerns regarding this plan of care. Physician Signature: Date:
--- NOTE | 2019-12-20 07:52 | HP.PT.NRP ---
HP - Discharge Summary (1) - Patient Information MARIA ELENA THOMPSON was seen in my office for initial evaluation on 10/16/19. The following Plan of Care was established for this patient: This patient was last seen in our office . Pertinent comments regarding their Physical therapy will appear below: Patient has not attended physical therapy in over 30 days- appropriate to be d/c from PT and return to MD for further evaluation as necessary. At this point I will be discontinuing this patient from physical therapy. I would be happy to see this patient again in the future if found appropriate by the physician. Thank you! ANDRES PadgettT
== END 2019-11-14 19:00 | disposition home or self-care (01) ==
LOC: PT 11:30
PROVIDERS: Family Provider Family Medicine; PCP Family Medicine; Referring Provider Orthopaedic Surgery; Visit Provider Orthopaedic Surgery
DX: Z47.89 Encounter for other orthopedic aftercare (principal)
CPT/HCPCS: 97110; 97116; 97161; 97164

== ENCOUNTER → 2020-07-21 09:02 | Outpatient (CLI) | payer MEDICARE, OTHER, SELFPAY ==
[2019-11-18 11:17] VITALS: BMI 34.1
[2020-07-21 10:47] LABS: Anion Gap 7 (5-15); BUN 23 mg/dL (7-18); BUN/Creat Ratio 16.2 RATIO (10-20); Calcium,Total 9.5 mg/dL (8.5-10.1); Chloride 103 mmol/L (98-107); Cholesterol 175 mg/dL (200); Creatinine, Serum 1.42 mg/dL (0.55-1.02); EST Glomerular Filtration Rate 38 mL/min (>60); Est Glom Filt Rate - Afr Amer 46 mL/min (>60); Glucose 99 mg/dL (74-106); High Density Lipoprotein 52 mg/dL; Potassium 3.9 mmol/L (3.5-5.1); Sodium Level 141 mmol/L (136-145); Thyroid Stim Hormone (TSH) 3.52 uIU/mL (0.358-3.74); Triglycerides 172 mg/dL; Very Low Density Lipoprotein 34 mg/dL (5-40)
== END ==
PROVIDERS: PCP Family Medicine; Referring Provider Family Medicine; Visit Provider Family Medicine
DX: I10 Essential (primary) hypertension (principal); E03.9 Hypothyroidism, unspecified
CPT/HCPCS: 36415; 80048; 80061; 84436; 84443

== ENCOUNTER → 2021-01-08 11:27 | Outpatient (CLI) | payer MEDICARE, OTHER, SELFPAY ==
[2019-11-18 11:17] VITALS: BMI 34.1
[2021-01-08 15:12] LABS: Anion Gap 9 (5-15); BUN 21 mg/dL (7-18); BUN/Creat Ratio 13.1 RATIO (10-20); Chloride 109 mmol/L (98-107); EST Glomerular Filtration Rate 33 mL/min (>60); Est Glom Filt Rate - Afr Amer 40 mL/min (>60); Glucose 125 mg/dL (74-106); Potassium 3.9 mmol/L (3.5-5.1); Sodium Level 144 mmol/L (136-145)
== END ==
PROVIDERS: PCP Family Medicine; Referring Provider Family Medicine; Visit Provider Family Medicine
DX: I10 Essential (primary) hypertension (principal)
CPT/HCPCS: 36415; 80048

== ENCOUNTER → 2021-08-24 12:18 | Outpatient (CLI) | payer MEDICARE, OTHER, SELFPAY ==
[2021-08-24 15:03] LABS: Hematocrit 43.5 % (37-47); Hemoglobin 13.8 g/dL (12.0-15.0); Mean Corp Hgb Conc 31.7 g/dL (32-36); Mean Corpuscular Hgb 30.2 pg (27.0-32.0); Mean Corpuscular Volume 95.2 fL (81-99); Mean Platelet Vol. 12.1 fl (6.2-12.0); Platelet Count 216 K/mm3 (150-450); RBC Distribution Width CV 12.6 % (11.6-14.6); RBC Distribution Width SD 44.1 fl (35.1-43.9); Red Blood Count 4.57 M/mm3 (4.2-5.4); White Blood Count 8.3 K/mm3 (4.4-11.0)
[2021-08-24 15:48] LABS: AST(SGOT) 17 U/L (15-37); Alanine Aminotransfer ALT/SGPT 15 U/L (13-56); Albumin, Serum 3.8 g/dL (3.2-5.0); Alkaline Phosphatase 108 U/L (45-117); Anion Gap 8 (5-15); BUN 25 mg/dL (7-18); BUN/Creat Ratio 16.9 RATIO (10-20); Calcium,Total 9.1 mg/dL (8.5-10.1); Chloride 105 mmol/L (98-107); Cholesterol 176 mg/dL (200); Creatinine, Serum 1.48 mg/dL (0.55-1.02); EST Glomerular Filtration Rate 36 mL/min (>60); Est Glom Filt Rate - Afr Amer 44 mL/min (>60); Globulin 3.8 g/dL (2.2-4.2); Glucose 76 mg/dL (74-106); High Density Lipoprotein 50 mg/dL; Protein, Total 7.6 g/dL (6.4-8.2); Sodium Level 142 mmol/L (136-145); Triglycerides 138 mg/dL; Very Low Density Lipoprotein 28 mg/dL (5-40)
== END ==
PROVIDERS: PCP Family Medicine; Referring Provider Registered Nurse; Visit Provider Registered Nurse
DX: E03.9 Hypothyroidism, unspecified (principal); I10 Essential (primary) hypertension
CPT/HCPCS: 36415; 80053; 80061; 84443; 85027

== ENCOUNTER → 2022-08-04 | Outpatient (CLI) | payer MEDICARE, OTHER, SELFPAY ==
--- NOTE | 2022-08-04 10:03 | RAD_ITS ---
STUDY: X-RAY CHEST REASON FOR EXAM: Female, 81 years old. COPD. Follow-up. TECHNIQUE: Frontal and lateral views of the chest. COMPARISON: 01/26/2018. FINDINGS: Stable marked hyperinflation with flattening of the hemidiaphragms and hyperlucency. There is no demonstrated pleural abnormality. Normal size heart. Normal mediastinum and demario. Normal visualized pulmonary arteries. Normal visualized aortic arch and descending thoracic aorta. Normal visualized thoracic spine. Normal visualized ribs, clavicles, and shoulders. There is no demonstrated abnormality of the visualized soft tissue structures of the upper abdomen. RAD/Chest PA and Lateral IMPRESSION: Stable findings compatible with moderate to marked COPD. No acute abnormality. Electronically Signed: Dominick Reyes, at 10:52 EDT ,
[2022-08-04 12:16] LABS: Absolute Neutrophil Count 6.5 X10^3/uL (2.0-7.7); Basophil# 0.05 X10^3/uL; Basophil% 0.5 % (0-1); Eosinophil# 0.21 X10^3/uL; Eosinophils% 2.2 % (0-5); Hematocrit 46.7 % (37-47); Hemoglobin 14.5 g/dL (12.0-15.0); Mean Corpuscular Volume 96.5 fL (81-99); Mean Platelet Vol. 11.8 fl (6.2-12.0); Monocyte# 0.81 X10^3/uL; Monocyte% 8.5 % (0-10); NRBC Flagged by Analyzer 0 % (0-5); Neutrophil # 6.48 X10^3/uL (2.7-7.7); Neutrophil % 68.5 % (47-70); Platelet Count 231 K/mm3 (150-450); RBC Distribution Width CV 12.7 % (11.6-14.6); RBC Distribution Width SD 45.3 fl (35.1-43.9); Red Blood Count 4.84 M/mm3 (4.2-5.4); White Blood Count 9.5 K/mm3 (4.4-11.0)
[2022-08-04 12:54] LABS: Anion Gap 9 (5-15); BUN 20 mg/dL (7-18); BUN/Creat Ratio 13.1 RATIO (10-20); Calcium,Total 9.3 mg/dL (8.5-10.1); Chloride 104 mmol/L (98-107); Cholesterol 181 mg/dL (200); Creatinine, Serum 1.53 mg/dL (0.55-1.02); EST Glomerular Filtration Rate 35 mL/min (>60); Est Glom Filt Rate - Afr Amer 42 mL/min (>60); Glucose 106 mg/dL (74-106); High Density Lipoprotein 54 mg/dL; Potassium 3.8 mmol/L (3.5-5.1); Sodium Level 142 mmol/L (136-145); T4 Total, Thyroxin 14.7 ug/dL (4.8-13.9); Thyroid Stim Hormone (TSH) 2.43 uIU/mL (0.358-3.74); Triglycerides 161 mg/dL; Very Low Density Lipoprotein 32 mg/dL (5-40)
== END | disposition home or self-care (01) ==
LOC: MTLAB 10:02
PROVIDERS: PCP Family Medicine; Referring Provider Family Medicine; Visit Provider Family Medicine
DX: J44.1 Chronic obstructive pulmonary disease with (acute) exacerbation (principal); I10 Essential (primary) hypertension
CPT/HCPCS: 36415; 71046; 80048; 80061; 84436; 84443; 85025

== ENCOUNTER → 2022-08-08 | Outpatient (CLI) | payer MEDICARE, OTHER, SELFPAY ==
[2022-08-08 14:16] LABS: Microalbumin,Random Urine 7.6 mg/L (NO RANGE EST.); Microalbumin:Creatinine Ratio 6.3 mg/g CRE (<30 mg/g CRE)
== END | disposition home or self-care (01) ==
PROVIDERS: PCP Family Medicine; Referring Provider Family Medicine; Visit Provider Family Medicine
DX: E03.9 Hypothyroidism, unspecified (principal); R06.09 Other forms of dyspnea; I10 Essential (primary) hypertension
CPT/HCPCS: 82043; 82570

== ENCOUNTER → 2022-08-11 | Outpatient (CLI) | payer MEDICARE, OTHER, SELFPAY ==
--- NOTE | 2022-08-11 10:51 | ECHOD_ITS ---
Reason For Study: BATISTA Procedure This was a 2D Doppler, Color Flow transthoracic echocardiogram. The study was technically difficult. Patient very SOB. Exam performed in department. Left Ventricle The left ventricular ejection fraction is 65 %. The left ventricle is normal in size, thickness, sytstolic function, and diastolic function. Right Ventricle Normal right ventricle. Atria The left and right atria are normal. Mitral Valve The mitral valve is structurally normal. No prolapse or stenosis seen. Tricuspid Valve Trivial tricuspid valve insufficiency. Normal pulmonary artery pressure. Aortic Valve Normal aortic valve. Pulmonic Valve The pulmonic valve is not well visualized. Great Vessels Normal sized aortic root. Pericardium/Pleural No pericardial effusion. Epicardial fat. MMode/2D Measurements & Calculations LVIDd: 4.0 cm IVSd: 0.88 cm LA dimension: 3.5 cm LVIDs: 2.6 cm LVPWd: 0.86 cm RVDd: 2.9 cm FS: 34.5 % LAV(MOD-bp): 33.9 ml LA A4 area: 13.4 cm2 RA A4 area: 11.5 cm2 LAV(MOD-bp) Indexed: 16.6 ml/m2 LAV(MOD-sp2): 38.7 ml LAV(MOD-sp4): 26.8 ml Time Measurements MV dec time: 0.33 sec Doppler Measurements & Calculations MV E max castillo: 58.5 cm/sec Lat Peak E' Castillo: 5.4 cm/sec Med Peak E' Castillo: 7.6 cm/sec MV A max castillo: 84.5 cm/sec E/E' lat: 10.8 E/E' med: 7.7 MV E/A: 0.69 MV V2 max: 102.0 cm/sec MV P1/2t max castillo: 77.5 cm/sec Ao V2 max: 108.8 cm/sec MV max P.2 mmHg MV P1/2t: 117.9 msec Ao max P.7 mmHg MV V2 mean: 58.7 cm/sec MV dec slope: 192.7 cm/sec2 MV mean P.5 mmHg MVA(P1/2t): 1.9 cm2 MV V2 VTI: 25.6 cm LV V1 max: 111.7 cm/sec PA V2 max: 78.9 cm/sec TR max castillo: 245.3 cm/sec LV V1 max P.0 mmHg TR max P.3 mmHg LV V1 mean P.3 mmHg LV V1 mean: 68.1 cm/sec LV V1 VTI: 20.3 cm ECHO/Echo Complete Interpretation Summary The left ventricular ejection fraction is 65 %. Ordering Physician: Katherin Aguirre Referring Physician: Katherin Aguirre Performed By: Jsapal Bynum RCS
== END | disposition home or self-care (01) ==
LOC: CVS 10:51
PROVIDERS: PCP Family Medicine; Referring Provider Family Medicine; Visit Provider Family Medicine
DX: R06.09 Other forms of dyspnea (principal)
CPT/HCPCS: 93306

== ENCOUNTER → 2023-05-08 | Outpatient (CLI) | payer MEDICARE, OTHER, SELFPAY | END | disposition home or self-care (01) | LOC: LABSPEC 16:17 | PROVIDERS: PCP Family Medicine; Visit Provider Family Medicine | DX: L02.619 Cutaneous abscess of unspecified foot (principal) | CPT/HCPCS: 87070; 87205 ==

== ENCOUNTER → 2023-07-18 | Outpatient (CLI) | payer MEDICARE, OTHER, SELFPAY ==
[2023-07-18 17:52] LABS: Erythrocyte Sedimentation Rate 12 mm/hr (0-30)
[2023-07-18 18:16] LABS: Anion Gap 6 (5-15); BUN 20 mg/dL (7-18); BUN/Creat Ratio 13.7 RATIO (10-20); Calcium,Total 8.9 mg/dL (8.5-10.1); Chloride 106 mmol/L (98-107); Creatinine, Serum 1.46 mg/dL (0.55-1.02); EST Glomerular Filtration Rate 36 mL/min (>60); Est Glom Filt Rate - Afr Amer 44 mL/min (>60); Glucose 146 mg/dL (74-106); Potassium 3.7 mmol/L (3.5-5.1); Sodium Level 141 mmol/L (136-145); Uric Acid 9.8 mg/dL (2.6-6.0)
== END | disposition home or self-care (01) ==
LOC: MFPLAB 15:30
PROVIDERS: PCP Family Medicine; Visit Provider Family Medicine
DX: M10.9 Gout, unspecified (principal)
CPT/HCPCS: 36415; 80048; 84550; 85652

== ENCOUNTER → 2024-03-12 | Outpatient (CLI) | payer MEDICARE, OTHER, SELFPAY ==
[2024-03-12 16:06] LABS: Cholesterol 149 mg/dL (200); High Density Lipoprotein 54 mg/dL; Thyroid Stim Hormone (TSH) 3.22 uIU/mL (0.358-3.74); Triglycerides 134 mg/dL; Very Low Density Lipoprotein 27 mg/dL (5-40)
[2024-03-12 16:36] LABS: Microalbumin,Random Urine 5.9 mg/L (NO RANGE EST.); Microalbumin:Creatinine Ratio 4.2 mg/g CRE (<30 mg/g CRE); Protein, Urine (Random) 11.3 mg/dL (<11.9); Protein:Creat Ratio 81 mg/g CRE (0-200)
== END | disposition home or self-care (01) ==
LOC: MFPLAB 12:00
PROVIDERS: PCP Family Medicine; Visit Provider Family Medicine
DX: E03.9 Hypothyroidism, unspecified (principal); I10 Essential (primary) hypertension
CPT/HCPCS: 36415; 80061; 82043; 82570; 84156; 84436; 84443

== ENCOUNTER → 2025-02-05 | Outpatient (CLI) | payer MEDICARE, SELFPAY ==
--- NOTE | 2025-02-05 12:58 | NEURO ---
NCS and/or EMG Patient Report Ordering Doctor: Orion Diaz DATE OF SERVICE: 02/05/25 Tamar presents numbness and tingling in both hands, progressively worsening over the past year. Electrodiagnostic findings: Median motor nerve demonstrates prolonged latency bilaterally with reduced amplitude and reduced conduction velocity. Ulnar motor response is within normal limits bilaterally. Normal median and ulnar F?waves. Absent median sensory latency at the wrist bilaterally. Needle EMG testing was performed upper limbs. All muscles tested showed no evidence of denervation with normal motor unit action potentials. Electrodiagnostic impression: This is an abnormal study in the upper limbs 4 1 electrodiagnostic findings suggestive of bilateral median mononeuropathy. This consistent with a moderate to advanced bilateral carpal tunnel syndrome. Multi Select Codes Neurology Neurology Interp Codes: 94404-97 Musc test done w/n test comp (interp) (2) and 51254-82 Nrv cndj test 11-12 studies (interp)
== END | disposition home or self-care (01) ==
PROVIDERS: PCP Family Medicine; Referring Provider Orthopaedic Surgery; Visit Provider Orthopaedic Surgery
DX: G56.03 Carpal tunnel syndrome, bilateral upper limbs (principal); M25.531 Pain in right wrist; M25.532 Pain in left wrist
CPT/HCPCS: 95886; 95911

== ENCOUNTER 2025-02-18 05:59 | Day surgery (SDC) | payer MEDICARE, SELFPAY ==
--- NOTE | 2025-02-14 10:56 | PAT.ANESEVAL ---
Pre-Assessment Diagnosis/Proposed Procedure Planned Operative Procedure(s): RIGHT OPEN CARPAL TUNNEL RELEASE Anesthesia History Anesthesia History - chain maker machine: Anesthesia History - chain maker machine Hx Hospitalization No 02/14/25 09:14 Any Problems With Anesthesia Yes: CONFUSION AFTER 201802/14/25 09:14 SURGERY Cholinesterase deficiency No 02/14/25 09:14 You/Your Family Experience No 02/14/25 09:14 fever (hyperthermia) with Relationship Recent Exposure to Contagious No 07/09/19 09:54 Disease Does patient have nerve No 02/14/25 09:14 stimulator Patient instructed to have device shut off --Does patient have Pacemaker or ICD? When Was Last Pacemaker Check QUESTION #4 FULL TEXT: You/Your Family Experience fever (hyperthermia) with Anesthesia Last Oral Intake Last Oral intake: Last Oral Intake NPO since Meds taken in AM with sips of water? Meds patient instructed to take am of surgery PONV PONV - chain maker machine: PONV - chain maker machine Female Yes 02/14/25 09:14 HX of Motion Sickness No 02/14/25 09:14 HX of N/V After Surgery No 02/14/25 09:14 Non-Smoker Yes 02/14/25 09:14 Duration of Surgery greater No 02/14/25 09:14 than 60 minutes Number of Risk Factors 2 02/14/25 09:14 PONV Score Moderate Risk 02/14/25 09:14 Height & Weight Height & Weight: Anesthesia: Height & Weight Height 5 ft 7 in 01/06/25 13:05 Respiratory Assessment Respiratory Assessment - chain maker machine: Respiratory Tract Infection Hx - chain maker machine Hx Respiratory Tract Infection No 02/14/25 09:14 STOP Sleep Apnea STOP Sleep Apnea - chain maker machine: STOP Sleep Apnea - chain maker machine Hx Hypertension Yes: CONTROLLED WITH MED 02/14/25 09:14 Hx Sleep Apnea No 02/14/25 09:14 CPAP No 07/11/19 12:00 BIPAP Do you snore loudly (louder Yes 02/14/25 09:14 than talking or can be heard Do you often feel tired/ No 02/14/25 09:14 fatigued/ sleepy during daytime? Has anyone observed you stop No 02/14/25 09:14 breathing during sleep? STOP Results Positive 02/14/25 09:14 QUESTION #5 FULL TEXT : Do you snore loudly (louder than talking or can be heard through closed doors)? 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 Specify any problems Hx of Preganancy in last 3 No 02/14/25 09:14 Months Nurse Filling Out Transfusion DSCHRIBER 02/14/25 09:14 & Questions: Date: 02/14/25 02/14/25 09:14 Time: 09:19 02/14/25 09:14 Patient unable to answer at this time (ie. confused, unrespo /Reproduction History /Reproductive History - chain maker machine: /Reproductive Hx- chain maker machine Hx Now No 02/14/25 09:14 Gestational Age (in weeks): EDC: Hx Hx Para Hx Section SAB No 02/14/25 09:14 PFSH Medical History (Updated 02/14/25 @ 09:29 by May Valdes) Wears glasses Cancer Post-menopausal Anxiety Thyroid disease Bladder disease Walker as ambulation aid Arthritis Back pain Injury of head and neck Former smoker Shortness of breath on exertion History of pain when walking History of echocardiogram Hypertension COPD (chronic obstructive pulmonary disease) Home Medications ?Medication ?Instructions ?Recorded ?Last Taken ?Type fluticasone 232 mcg-salmeterol 14 1 puff IH Q12 07/24/19 Unknown Rx mcg/actuation breath activated powdr levothyroxine 75 mcg tablet 75 mcg PO DAILY@0600 07/24/19 Unknown Rx multivitamin with folic acid 400 1 tab PO DAILY@0807/24/19 Unknown Rx mcg tablet hydrochlorothiazide 12.5 mg tablet 12.5 mg PO QDAY 01/06/25 Unknown History losartan 50 mg tablet 50 mg PO QDAY 01/06/25 Unknown History amoxicillin 500 mg tablet 500 mg PO ONCE #4 tabs 02/12/25 Unknown Rx calcium carbonate (Calcium 600) 600 mg PO DAILY 02/14/25 Unknown History vitamins A,C,T-ybii-evgzno 4,296 1 cap PO BID 02/14/25 Unknown History mcg-226 mg-90 mg capsule (PreserVision AREDS) Allergy/AdvReac Type Severity Reaction Status Date / Time No Known Allergies Allergy Verified 02/14/25 09:09 Family History Mother CVA (cerebral vascular accident) Brother Kidney disease Aneurysm Not sure what type, 1969 Surgical History (Updated 02/14/25 @ 09:29 by May Valdes) Hx of right cataract extraction Hx of left cataract extraction Hx of colonoscopy Hx of varicose vein ligation and stripping Hx of hemorrhoidectomy Hx of total knee arthroplasty h/o left knee scope History of hysterectomy Social History Smoking Status: Former smoker pack-years: 57 alcohol intake: never Audit: Pertinent Findings Pertinent Findings Echo (EF%) pertinent findings: 08/11/2022. EF 65%. Pulmonary function results/spirometer pertinent findings: Chest x-ray 08/04/2022. Stable findings compatible with moderate to marked COPD Recommendation Anesthesia Recommendation Anesthesia recommendation: OPTIMIZED for anesthesia
[2025-02-18] VITALS (9 sets, daily range): BP systolic 97–144; BP diastolic 58–78; PULSE 80–93; RESP 16–18; TEMP 36.3–36.8; O2SAT 94–99; BMI 27.8
--- NOTE | 2025-02-18 06:59 | PCM.PRE.AN2 ---
ASA Classification* ASA Classification ASA Classification: 2 Assessment & Plan Anesthesia* Anesthesia Assessment Anesthesia Assessment: Discussed sedation and/or anesthesia options, risks, benefits, and alternatives with patient/parents/legal guardian/POA. Questions invited. The patient/parents/legal guardian/POA seems to understand and agrees to proceed with anesthesia plan. Reviewed the physical assessment, medical history, allergy history and patient home medications list prior to surgery/procedure/anesthetic and documented any changes. Performed airway and anesthesia risk assessments. Anesthesia Type Anesthesia Type: MAC History Source History Obtained from:: Patient and Chart Anesthesia Focused Assessment* Temperature: 97.4 F Pulse Rate: 93 Blood Pressure: 144/78 Respiratory Rate: 18 Pulse Ox: 97 Oxygen Delivery Method: Room Air Airway Assessment Mouth opens: >3 cm Mallampati Score: IV Teeth Condition: Missing (Patient has several missing teeth.) Neck Range of motion (ROM): Limited ROM (Slight decrease in extension) Focused Labs Anesthesia Preop lab: CBC WBC 9.5 K/mm3 (4.4-11.0) 08/04/22 10:12 08/04/22 RBC 4.84 M/mm3 (4.2-5.4) 08/04/22 10:12 08/04/22 Hgb 14.5 g/dL (12.0-15.0) 08/04/22 10:12 08/04/22 Hct 46.7 % (37-47) 08/04/22 10:12 08/04/22 Plt Count 231 K/mm3 (150-450) 08/04/22 10:12 08/04/22 CHEMISTRY Potassium 3.7 mmol/L (3.5-5.1) 07/18/23 15:30 07/18/23 Sodium 141 mmol/L (136-145) 07/18/23 15:30 07/18/23 BUN 20 mg/dL (7-18) H 07/18/23 15:30 07/18/23 Creatinine 1.46 mg/dL (0.55-1.02) H 07/18/23 15:30 07/18/23 Glucose 146 mg/dL (74-106) H 07/18/23 15:30 07/18/23 POC Glucose 112 mg/dL (70-110) H 07/09/19 09:55 07/09/19 TSH 3.22 uIU/mL (0.358-3.74) 03/12/24 12:01 03/12/24 COAG PT 15.0 SECONDS (11.7-14.9) H 07/12/19 12:25 07/12/19 Pre-Assessment Diagnosis/Proposed Procedure Planned Operative Procedure(s): RIGHT OPEN CARPAL TUNNEL RELEASE Anesthesia History Anesthesia History - water and gas helper: Anesthesia History - water and gas helper Hx Hospitalization No 02/14/25 09:14 Any Problems With Anesthesia Yes: CONFUSION AFTER 201802/14/25 09:14 SURGERY Cholinesterase deficiency No 02/14/25 09:14 You/Your Family Experience No 02/14/25 09:14 fever (hyperthermia) with Relationship Recent Exposure to Contagious No 02/18/25 06:36 Disease Does patient have nerve No 02/14/25 09:14 stimulator Patient instructed to have device shut off --Does patient have Pacemaker No 02/18/25 06:37 or ICD? When Was Last Pacemaker Check QUESTION #4 FULL TEXT: You/Your Family Experience fever (hyperthermia) with Anesthesia Last Oral Intake Last Oral intake: Last Oral Intake NPO since 05:25 02/18/25 06:37 Meds taken in AM with sips of Yes 02/18/25 06:37 water? Meds patient instructed to take am of surgery Any additional information?: Yes NPO since: 05:25 (Patient had a couple sips of black coffee at 5:25 AM. Nothing to eat since last night.) PONV PONV - water and gas helper: PONV - water and gas helper Female Yes 02/14/25 09:14 HX of Motion Sickness No 02/14/25 09:14 HX of N/V After Surgery No 02/14/25 09:14 Non-Smoker Yes 02/14/25 09:14 Duration of Surgery greater No 02/14/25 09:14 than 60 minutes Number of Risk Factors 2 02/14/25 09:14 PONV Score Moderate Risk 02/14/25 09:14 Height & Weight Height & Weight: Anesthesia: Height & Weight Height 5 ft 7 in 02/18/25 06:37 Weight: 80.739 kg 02/18/25 06:37 Body Mass Index (BMI) 27.8 02/18/25 06:37 Respiratory Assessment Respiratory Assessment - water and gas helper: Respiratory Tract Infection Hx - water and gas helper Hx Respiratory Tract Infection No 02/14/25 09:14 STOP Sleep Apnea STOP Sleep Apnea - water and gas helper: STOP Sleep Apnea - water and gas helper Hx Hypertension Yes: CONTROLLED WITH MED 02/14/25 09:14 Hx Sleep Apnea No 02/14/25 09:14 CPAP No 07/11/19 12:00 BIPAP Do you snore loudly (louder Yes 02/14/25 09:14 than talking or can be heard Do you often feel tired/ No 02/14/25 09:14 fatigued/ sleepy during daytime? Has anyone observed you stop No 02/14/25 09:14 breathing during sleep? STOP Results Positive 02/14/25 09:14 QUESTION #5 FULL TEXT : Do you snore loudly (louder than talking or can be heard through closed doors)? 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 Specify any problems Hx of Preganancy in last 3 No 02/14/25 09:14 Months Nurse Filling Out Transfusion DSCHRIBER 02/14/25 09:14 & Questions: Date: 02/14/25 02/14/25 09:14 Time: 09:19 02/14/25 09:14 Patient unable to answer at this time (ie. confused, unrespo /Reproduction History /Reproductive History - water and gas helper: /Reproductive Hx- water and gas helper Hx Now No 02/14/25 09:14 Gestational Age (in weeks): EDC: Hx Hx Para Hx Section SAB No 02/14/25 09:14 Active Medications Active Medications: Current Medications Generic Name Dose Route Start Last Admin Trade Name Freq PRN Reason Stop Dose Admin Cefazolin Sodium 2 gm/ N/A 20 mls @ 400 mls/hr 02/18/25 10:15 IV 02/18/25 10:17 PREOP ONE PFSH Medical History Wears glasses Cancer Post-menopausal Anxiety Thyroid disease Bladder disease Walker as ambulation aid Arthritis Back pain Injury of head and neck Former smoker Shortness of breath on exertion History of pain when walking History of echocardiogram Hypertension COPD (chronic obstructive pulmonary disease) Home Medications ?Medication ?Instructions ?Recorded ?Last Taken ?Type fluticasone 232 mcg-salmeterol 14 1 puff IH Q12 07/24/19 02/18/25 05:15 Rx mcg/actuation breath activated powdr levothyroxine 75 mcg tablet 75 mcg PO DAILY@0600 07/24/19 02/18/25 05:15 Rx multivitamin with folic acid 400 1 tab PO DAILY@0800 07/24/19 02/16/25 Rx mcg tablet hydrochlorothiazide 12.5 mg tablet 12.5 mg PO QDAY 01/06/25 02/17/25 History losartan 50 mg tablet 50 mg PO QDAY 01/06/25 02/18/25 05:15 History calcium carbonate (Calcium 600) 600 mg PO DAILY 02/14/25 02/16/25 History vitamins A,C,D-ctbs-ntizpu 4,296 1 cap PO BID 02/14/25 02/17/25 History mcg-226 mg-90 mg capsule (PreserVision AREDS) amoxicillin 500 mg tablet 500 mg PO ONCE PRN before dental 02/18/25 Unknown History procedure Allergy/AdvReac Type Severity Reaction Status Date / Time No Known Allergies Allergy Verified 02/18/25 06:32 Family History Mother CVA (cerebral vascular accident) Brother Kidney disease Aneurysm Not sure what type, 1970 Surgical History Hx of right cataract extraction Hx of left cataract extraction Hx of colonoscopy Hx of varicose vein ligation and stripping Hx of hemorrhoidectomy Hx of total knee arthroplasty h/o left knee scope History of hysterectomy Social History Smoking Status: Former smoker pack-years: 57 alcohol intake: never Review of Systems (Anesthesia) ROS Narrative System reviewed and no additional complaints, except as documented.
--- NOTE | 2025-02-18 07:10 | PCM.HP.BLA ---
History and Physical Date of Admission: 02/18/25 [facility] [address] [place] [address] OFFICE VISIT Date of Service: 02/12/25 MR#: [id number] Acct: [id number] Name: MARIA ELENA THOMPSON Rep #: [id number] : 1940 Provider: Dr. Orion Diaz DO Age/Sex: 84/F Location: [facility] [place] Status: Signed Intake Vital Signs 01/06/2513:05 Height 5 ft 7 in Weight: 180 lb 2 oz BMI 28.2 Intake Visit Reasons: BL WRISTS Chief Complaint: Bilateral Wrist Pain Allergies No Known Allergies Allergy (Verified 02/12/25 10:54) Medications ?Medication ?Instructions ?Recorded ?Confirmed ?Type fluticasone 232 mcg-salmeterol 14 1 puff IH Q12 07/24/19 02/12/25 Rx mcg/actuation breath activated powdr levothyroxine 75 mcg tablet 75 mcg PO DAILY@0600 07/24/19 02/12/25 Rx multivitamin with folic acid 400 1 tab PO DAILY@0800 07/24/19 02/12/25 Rx mcg tablet Handicap Placard See Rx Instructions .Route 12XD #1 08/28/19 02/12/25 Rx unit handicap placard See Rx Instructions .Route 09/06/19 02/12/25 Rx .COMPLEX #1 unit hydrochlorothiazide 12.5 mg tablet 12.5 mg PO QDAY 01/06/25 02/12/25 History losartan 50 mg tablet 50 mg PO QDAY 01/06/25 02/12/25 History amoxicillin 500 mg tablet 500 mg PO ONCE #4 tabs 02/12/25 02/12/25 Rx Have you fallen in the past year?: No PFSH Medical History COPD (chronic obstructive pulmonary disease) Surgical History h/o left knee scope History of hysterectomy Family History Mother CVA (cerebral vascular accident)Brother Kidney disease Aneurysm Not sure what type, 1969 Social History Smoking Status: Former smoker pack-years: 57 alcohol intake: never HPI BL WRISTS Details: This documentation accurately reflects the service provided and the decisions made by me, Dr. Orion Diaz, DO 02/12/25 0806. Part of today?s visit was documented by Mandi ROBLERO, acting as scribe. MARIA ELENA THOMPSON is a 84 year old F here today for bilateral hand EMG review. She denies nay changes. She does note that she needs a refill of the antibiotic as she is having some dental procedures done and had a knee replacement in 2019. 01/06/2025 visit:F here today for bilateral wrist pain. This has been bothering her for quite awhile but progressively gotten worse. She denies any pain in the wrists but complains of numbness and tingling from the wrists to the fingers. She does wear braces at night for past year, and she states they help her for the most part at night. She states the numbness/tingling are in all of her fingers. She denies any prior surgeries, injections. Patient is RHD. She does see a chiropractor for her neck but has not had any surgery. she is concerned if she does have carpal tunnel release surgery that afterwards she will need to use a walker for her balance. Plan:Patient has had ongoing carpal tunnel symptoms for over a year she does get some benefit from night bracing but her symptoms have progressively worsened she is also complaining of weakness at this point I would recommend EMG nerve conduction study bilateral upper extremity. explained that if surgery is needed for carpal tunnel release then she would get one hand/wrist done at one time. We could use a wrist brace to help with the use of the walker if needed postoperatively once she has the EMG is done she should come back here in the office to go over the results and further discuss treatment options. Follow up after the EMG test is done or sooner if pain, swelling, numbness or associated symptoms, or concerns develop. All questions answered. Patient in agreement of plan. Ortho Exam General General: Yes no acute distress Neurologic: Yes alert and Yes oriented x3 Psychologic: Yes reasonable and appropriate Right Wrist/Hand Skin/Wound: No Swelling, No Ecchymosis, Yes nail intact and Yes capillary refill normal WRIST: possible early thenar and hypothenar atrophy mild flexion contracture of PIP joint of index finger Intact flexor and extensor tendons full digit flexion full supination full pronation wrist EXT 60 wrist FLEX 50 - Tinel's - Tinel's at elbow - Direct compression and hyperflexion of elbow Left Wrist/Hand Skin/Wound: Yes CDI, No Swelling, No Ecchymosis, Yes capillary refill normal and No erythema WRIST: possible early thenar and hypothenar atrophy mild flexion contracture of PIP joint of index finger Intact flexor and extensor tendons full digit flexion 75 deg supination full pronation wrist EXT 60 wrist FLEX 50 - Tinel's - Tinel's at elbow - Direct compression and hyperflexion of elbow Head: Normocephalic Atraumatic Chest: symmetrical rise, non-labored breathing, no audible wheeze Abdomen: no guarding, non-rigid Supplemental Info 02/05/2025 EMG bilateral upper extremities: Electrodiagnostic impression: This is an abnormal study in the upper limbs 4 1 electrodiagnostic findings suggestive of bilateral median mononeuropathy. This consistent with a moderate to advanced bilateral carpal tunnel syndrome. Coding Level of Care Code Off vis,est,level 4 Diagnoses Carpal tunnel syndrome, bilateral G56.03 Assessment and Plan Assessment and Plan (1) Carpal tunnel syndrome, bilateral: Status: Acute Medications: New amoxicillin take 4 tabs within 1 hr prior to dental procedure. 500 mg PO ONCE 4 tabs 0RF Plan Patient is here today for EMG review of her bilateral hands. I explained to patient that she does have severe carpal tunnel syndrome of both hands. We spoke about surgical versus nonsurgical intervention. I can't promise that the nerve will come back after the surgery also due to the severity of her carpal tunnel. As far as her using the walker I would recommend she use a platform walker so she puts more of her weight through her forearm and it would reduce the chance of the incision opening up and dehiscing. She will have restrictions of .5lbs the first two weeks then the third week she will have a 5lb restriction. Patient wishes to proceed with a right open carpal tunnel release for a projected surgery date of 02/18/25. Risks include but are not limited to bleeding infection nerve artery tissue damage need for further surgery continued pain continued symptoms incisional hypersensitivity and postoperative restrictions and expected course . I will also provide patient with some exercises to do after surgery to help with her ROM. Clinical Quality Measures Falls Risk Screening/Assistive Devices Have you fallen in the past year?: No 02/12/25 1204 <Electronically signed by Orion Diaz DO> Date Orion Diaz DO I have examined the patient and the H&P has been reviewed. There are no clinical changes since date of exam.
[2025-02-18] MEDS: Cefazolin 2 GM in Syringe IV (07:26)
[2025-02-18] MEDS: Bupiv/Epi 0.25% 30 ML Vial (07:45)
--- NOTE | 2025-02-18 07:58 | OP.PCM_ITS ---
Operative Report (Standard) Operative Information Date of Procedure: 02/18/25 Pre-Operative Diagnosis: Right carpal tunnel syndrome Post-Operative Diagnosis: Same Surgery/Procedure Performed: Right carpal tunnel release civil rights attorney: Yes Market Development Analyst: Hugo Ramos Tasks completed by syrup mixer assistant: Opening & closing Type of Anesthesia: Local MAC RN Documented Start/Stop Times: Operation Date: 02/18/25 07:30 Case Time Into Pre-Op 02/18/25 06:15 Out of Pre-Op 02/18/25 07:22 Anesthesia Start 02/18/25 07:26 Into Room 02/18/25 07:26 Procedure Start 02/18/25 07:41 Procedure End 02/18/25 07:54 Anesthesia End 02/18/25 07:58 Out of Room 02/18/25 07:58 Procedure Start Time: 07:41 Procedure Stop Time: 07:54 Select all DRAINS/GRAFTS/IMPLANTS that apply: None Estimated Blood Loss: 0 Specimen collected: No Description of surgery: Preoperative diagnosis; right carpal tunnel syndrome Postoperative diagnosis; same Procedure: Right open carpal tunnel release Anesthesia: Local with MAC Tourniquet time; 10 minutes 250 mm Hg Complications: None Indication for procedure; This is a 84-year-old female with long-standing symptoms consistent with carpal tunnel syndrome the patient did have electrodiagnostic evidence of this and has failed conservative treatment. Risks benefits and alternatives were reviewed including risks of bleeding infection nerve artery tissue damage need for further surgery and continued pain and symptoms, hypersensitivity to scar and Pillar pain. Procedure; The patient was met in the preoperative holding area the operative extremity was identified by both patient and physician and was marked the patient was met by anesthesia and brought back to the operating room and transferred to the operating table in the supine position. Anesthesia was started. A well-padded tourniquet was placed on the operative upper extremity. The patient was prepped and draped in the usual sterile fashion. A timeout was called to ensure the proper patient procedure and extremity were being contemplated. 0.5 percent lidocaine with epinephrine was injected into the incisional area. An Esmarch was used to exsanguinate the extremity. The tourniquet was inflated to 250 mmHg. A midline incision was made with a 15 blade scalpel between the thenar and hypothenar eminence. This was carried down through the skin and subcutaneous tissue. Chester retractors were then used, a deep blade scalpel was used to make a deep incision in the palmar aponeurosis. The chester retractors were then placed deep to this and the transverse carpal ligament was identified a perforation was made with a scalpel and a Littler scissors were used to complete the release of the transverse carpal ligament distally under direct visualization with the tips facing ulnarly until the perivascular fat was reached. Then turning our attention proximally using a tension slide technique the proximal extent of the transverse carpal ligament was released . There was noted to be hourglass configuration to the median nerve and hypertrophy of the transverse carpal ligament without other findings. The wound was thoroughly irrigated and was closed with 4-0 nylon vertical mattress stitches. Dressing was applied in the form of xeroform 4 x 4, web roll and an sandor wrap. Tourniquet was let down there is no intraoperative compli cations patient tolerated the procedure well and was transferred to the PACU. All counts were correct. Surgical Findings: Hypertrophied transverse carpal ligament Complications Complications: No
--- NOTE | 2025-02-18 07:59 | DCINST_ITS ---
Discharge Instructions Diet Discharge Diet: No restrictions Dressing / Incision Call your doctor if you observe: Shortness of breath and Chest pain Additional Dressing/Incision Instructions:: Ice and elevate operative extremity next 72 hours. Keep dressing on clean and dry for 48 hours then may remove and allow warm soapy water to rinse over incision but do not submerge until sutures are out. Then apply bandaid over incision and change daily. encourage finger range of motion. Not lift more than 1/2 pound. Minimize narcotic use only as needed and directed, may use OTC NSAID and Tylenol to supplement/substitute for pain control. Follow Up Care Please Follow Up With: Orion Diaz DO When: 2 weeks Test Results: Test results from this visit will be discussed in further detail at your follow- up appointment, if applicable. Discharge Plan Admission Primary Reason for Your Visit: Right carpal tunnel release Attending Provider: Orion Diaz Primary Care Provider: Katherin Aguirre Instructions Print Language: Congolese Discharge Orders/Prescriptions Prescriptions: New hydrocodone-acetaminophen 5-325 mg tablet 1 tab PO Q4H PRN (Reason: pain) 3 Days Qty: 7 0RF No Action hydrochlorothiazide 12.5 mg tablet 12.5 mg PO QDAY losartan 50 mg tablet 50 mg PO QDAY levothyroxine 75 MCG tablet 75 mcg PO DAILY@0600 0RF multivitamin with folic acid 1 TABLET tablet 1 tab PO DAILY@0800 0RF fluticasone propion-salmeterol 1 PUFF inhaler 1 puff IH Q12 0RF calcium carbonate [Calcium 600] 600 mg calcium (1,500 mg) tablet 600 mg PO DAILY PreserVision AREDS 4,296 mcg-226 mg-90 mg capsule 1 cap PO BID amoxicillin 500 mg tablet 500 mg PO ONCE PRN (Reason: before dental procedure) Rx Instructions: take 4 tabs within 1 hr prior to dental procedure. Referrals / Follow Up: Katherin Aguirre MD [Primary Care Provider] - Disposition Disposition (needs filled in before D/C Order can be placed): Home, Self Care
--- NOTE | 2025-02-18 08:04 | PCM.POST.ANE ---
Anesthesia: Postop Eval I Current Vital Signs Temperature: 97.9 F Pulse Rate: 80 Blood Pressure: 97/62 Respiratory Rate: 18 Pulse Ox: 99 Oxygen Delivery Method: Simple Mask Oxygen Flow Rate (L/min): 4 Assessment Airway patent: Yes Spontaneous unlabored respirations: Yes Mental status: Awake nausea: No Vomiting: No Anesthesia Complication: No Fluid Hydration Crystalloid volume administer (ml): 500 Total IV fluid infused: 500 Progress Note Anesthesia document: Postop Eval 1 completed: Yes
--- NOTE | 2025-02-18 08:54 | POSTOPAN2_ITS ---
Anesthesia Postop Eval I Sum Postop Eval Completion status Anesthesia document: Postop Eval 1 completed: Yes Anesthesia Postop Eval I Summary Anesthesia Postop Eval I Summary: Anesthesia Postop Eval I: Assessment Summary Airway patent Yes 02/18/25 08:05 PREMISES [email or web address] Spontaneous unlabored Yes 02/18/25 08:05 PREMISES [email or web address] respirations Mental status Awake 02/18/25 08:05 PREMISES [email or web address] nausea No 02/18/25 08:05 PREMISES [email or web address] Vomiting No 02/18/25 08:05 PREMISES [email or web address] Anesthesia Postop Eval I: Fluid Summary Crystalloid volume administer 500 02/18/25 08:05 PREMISES [email or web address] (ml) Colloids volume administered ( ml) Blood Product volume administered (ml) Total IV fluid infused 500 02/18/25 08:05 PREMISES [email or web address] Anesthesia Postop Eval I: Summary Notes Anesthesia Complication No 02/18/25 08:05 PREMISES [email or web address] Anesthesia Complication Comment: Post-operative progress note Anesthesia: Postop Eval II Evaluation Mental status: Awake and Calm Pain Level: 1 nausea: No Vomiting: No Complications Anesthesia Complication: No
--- NOTE | 2025-02-18 08:54 | PCM.POSTANE2 ---
Anesthesia Postop Eval I Sum Postop Eval Completion status Anesthesia document: Postop Eval 1 completed: Yes Anesthesia Postop Eval I Summary Anesthesia Postop Eval I Summary: Anesthesia Postop Eval I: Assessment Summary Airway patent Yes 02/18/25 08:05 RN [email or web address] Spontaneous unlabored Yes 02/18/25 08:05 RN [email or web address] respirations Mental status Awake 02/18/25 08:05 RN [email or web address] nausea No 02/18/25 08:05 RN [email or web address] Vomiting No 02/18/25 08:05 RN [email or web address] Anesthesia Postop Eval I: Fluid Summary Crystalloid volume administer 500 02/18/25 08:05 RN [email or web address] (ml) Colloids volume administered ( ml) Blood Product volume administered (ml) Total IV fluid infused 500 02/18/25 08:05 RN [email or web address] Anesthesia Postop Eval I: Summary Notes Anesthesia Complication No 02/18/25 08:05 RN [email or web address] Anesthesia Complication Comment: Post-operative progress note Anesthesia: Postop Eval II Evaluation Mental status: Awake and Calm Pain Level: 1 nausea: No Vomiting: No Complications Anesthesia Complication: No
== END 2025-02-18 09:34 | disposition home or self-care (01) ==
LOC: SDC 06:08 → AC 06:11
PROVIDERS: PCP Family Medicine; Referring Provider Orthopaedic Surgery; Visit Provider Orthopaedic Surgery
PROC: (CPT 64721; principal; 2025-02-18 07:15)
DX: G56.03 Carpal tunnel syndrome, bilateral upper limbs (principal); J44.9 Chronic obstructive pulmonary disease, unspecified; Z87.891 Personal history of nicotine dependence
CPT/HCPCS: 64721; A4216; J2405

== ENCOUNTER 2025-07-22 06:36 | Day surgery (SDC) | payer MEDICARE, SELFPAY ==
--- NOTE | 2025-07-08 10:39 | PAT.ANE_ITS ---
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 When Was Last Pacemaker Check QUESTION #4 FULL TEXT: You/Your Family Experience fever (hyperthermia) with Anesthesia Last Oral Intake Last Oral intake: Last Oral Intake NPO since Meds taken in AM with sips of water? Meds patient instructed to take am of surgery PONV PONV - mechanical project manager: PONV - mechanical project manager Female Yes 07/08/25 09:23 HX of Motion Sickness No 07/08/25 09:23 HX of N/V After Surgery No 07/08/25 09:23 Non-Smoker Yes 07/08/25 09:23 Duration of Surgery greater No 07/08/25 09:23 than 60 minutes Number of Risk Factors 2 07/08/25 09:23 PONV Score Moderate Risk 07/08/25 09:23 Height & Weight Height & Weight: Anesthesia: Height & Weight Height 5 ft 7 in 06/17/25 10:36 Respiratory Assessment Respiratory Assessment - mechanical project manager: Respiratory Tract Infection Hx - mechanical project manager Hx Respiratory Tract Infection No 07/08/25 09:23 STOP Sleep Apnea STOP Sleep Apnea - mechanical project manager: STOP Sleep Apnea - mechanical project manager Hx Hypertension Yes: PER PT, CONTROLLED ON 07/08/25 09:23 MEDS Hx Sleep Apnea No 07/08/25 09:23 CPAP No 07/08/25 09:23 BIPAP Do you snore loudly (louder No 07/08/25 09:23 than talking or can be heard Do you often feel tired/ No 07/08/25 09:23 fatigued/ sleepy during daytime? Has anyone observed you stop No 07/08/25 09:23 breathing during sleep? STOP Results Negative 07/08/25 09:23 QUESTION #5 FULL TEXT : Do you snore loudly (louder than talking or can be heard through closed doors)? 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 Specify any problems Hx of Preganancy in last 3 No 07/08/25 09:23 Months Nurse Filling Out Transfusion NATALIIA 07/08/25 09:23 & Questions: Date: 07/08/25 07/08/25 09:23 Time: 09:07/08/25 09:23 Patient unable to answer at this time (ie. confused, unrespo /Reproduction History /Reproductive History - mechanical project manager: /Reproductive Hx- mechanical project manager Hx Now No 07/08/25 09:23 Gestational Age (in weeks): EDC: Hx Hx Para Hx Section SAB No 07/08/25 09:23 PFS Medical History (Updated 07/08/25 @ 09:37 by Rosalia Woodall) Gout Wears glasses Cancer Post-menopausal Anxiety Thyroid disease Bladder disease Walker as ambulation aid Arthritis Back pain Injury of head and neck Former smoker Shortness of breath on exertion History of pain when walking History of echocardiogram Hypertension COPD (chronic obstructive pulmonary disease) Home Medications ?Medication ?Instructions ?Recorded ?Last Taken ?Type fluticasone 232 mcg-salmeterol 14 1 puff IH Q12 02/18/25 05:15 Rx mcg/actuation breath activated powdr levothyroxine 75 mcg tablet 75 mcg PO DAILY@0600 07/2402/18/25 05:15 Rx multivitamin with folic acid 400 1 tab PO DAILY@0800 0 07/24/19 02/16/25 Rx mcg tablet hydrochlorothiazide 12.5 mg tablet 12.5 mg PO QDAY 01/2802/17/25 History losartan 50 mg tablet 50 mg PO QDAY 01/06/2502/18 05:15 History calcium carbonate (Calcium 600) 600 mg PO DAILY 02/16/25 History vitamins A,C,E-fpfi-ywymsb 4,296 1 cap PO BID 02/14/25 02/17/25 History mcg-226 mg-90 mg capsule (PreserVision AREDS) amoxicillin 500 mg tablet 500 mg PO ONCE PRN before de ntal 02/18/25 Unknown History procedure amoxicillin 500 mg tablet 2,000 mg (4 x 500 mg) PO ONC E #4 05/23/25 Unknown Rx tabs allopurinol 300 mg tablet 300 mg PO DAILY 07/08/25 Unk nown History Allergy/AdvReac Type Severity Reaction Status Date / Time No Known Allergies Allergy Verified 07/08/25 09:19 Family History Mother CVA (cerebral vascular accident) Brother Kidney disease Aneurysm Not sure what type, 1969 Surgical History History of carpal tunnel release Hx of right cataract extraction Hx of left cataract extraction Hx of colonoscopy Hx of varicose vein ligation and stripping Hx of hemorrhoidectomy Hx of total knee arthroplasty h/o left knee scope History of hysterectomy Social History Smoking Status: Former smoker pack-years: 57 alcohol intake: never Audit: Pertinent Findings Pertinent Findings EKG Perinent findings: July 02, 2019. Normal sinus rhythm. Echo (EF%) pertinent findings: August 11, 2022. EF of 65%. Normal PA pressure. No aortic stenosis noted. Recommendation Anesthesia Recommendation Anesthesia recommendation: OPTIMIZED for anesthesia
[2025-07-22] VITALS (8 sets, daily range): BP systolic 103–134; BP diastolic 57–85; PULSE 71–91; RESP 16–18; TEMP 36.2–36.7; O2SAT 95–98; BMI 27.8
--- OUTSIDE RECORDS SUMMARY | 2025-07-22 06:51 | XMS RPT_ITS | CCD ---
Author Organization [facility] Care Team Providers Care Veneer Cutter Name Role Phone Jing Pickering N Unavailable Jing Pickering N Unavailable Jing Pickering N Unavailable Dr. Katherin Aguirre Primary Care Provider [phone] aRnjeet Yen Attending Provider Carla PORTILLO, Dr. Katherin Coyne Primary Care Provider Dr. Katherin Aguirre MD Referring Provider Dr. Orion Diaz DO Attending Provider Dr. Orion Diaz DO Referring Provider Dr. Orion Diaz DO Other Provider Dr. Angel Escobar MD Attending Provider Dr. Katherin Aguirre MD Primary Care Provider [phone] Dr. Katherin Aguirre MD Referring Provider Dr. Orion Diaz DO Attending Provider Orion Diaz Attending Unavailable Carla, Katherin S Primary Care Unavailable Orion Diaz Referring Unavailable Jolliff, Katherin S Primary Care Unavailable Orion Diaz Attending Unavailable Jolliff, Katherin S Referring Unavailable Jolliff, Katherin S Primary Care Unavailable Miraclelliff, Katherin S Referring Unavailable Orion Diaz Attending Unavailable Orion Diaz Consulting Unavailable Tarahiff, Katherin S Primary Care Unavailable Angel Escobar Attending Unavailable Orion Diaz Referring Unavailable Orion Diaz Consulting Unavailable Jolliff, Katherin S Primary Care Unavailable Orion Diaz Attending Unavailable Orion Diaz Referring Unavailable Carla, Katherin S Primary Care Unavailable Orion Diaz Attending Unavailable Miracleceliiff, Katherin S Referring Unavailable Tarahiff, Katherin S Primary Care Unavailable Orion Diaz Attending Unavailable Tarahiff, Katherin S Referring Unavailable Tarahiff, Katherin S Primary Care Unavailable Orion Diaz Attending Unavailable Orion Diaz Referring Unavailable Orion Diaz Referring Unavailable Tarahhernan, Katherin S Primary Care Unavailable Orion Diaz Attending Unavailable Medications Current Medications Medication Drug Class(es) Dates Sig (Normalized) Sig (Original) amoxicillin 500 mg oral tablet (20 sources) Penicillin-class Antibacterial Start: 05-23-2025 take 4 tablets by mouth every hour Amoxicillin 500 mg tablet Active 2000 mg PO ONCE 4 May 23, 2025 12:00am take 4 tabs within 1 hr prior to dental procedure. Start: 03-15-2023 take 4 tablets by mo uth every hour Amoxicillin Active 2000 MG PO ONCE December 04, 2023 1:00am take 4 tabs within 1 hr prior to dental procedure. Start: 07-14-2021 End: 02-18-2025 take 4 tablets by mouth every hour Amoxicillin 500 mg tablet Discontinued 2000 mg PO ONCE 4 December 04, 2023 1:00am February 12, 2025 10:55am take 4 tabs within 1 hr prior to dental procedure. Start: 09-06-2019 End: 02-12-2025 take 4 tablets by mouth every hour Amoxicillin 500 mg capsule Discontinued 500 mg PO ONCE 4 April 22, 2021 1:13pm February 12, 2025 10:55am take 4 tabs within 1 hour of dental procedure. calcium carbonate 1500 mg oral tablet (2 sources) Start: 02-14-2025 take 1 tablet by mouth once daily Calcium Carbonate (Calcium 600) 600 mg calcium (1,500 mg) tablet Active 600 mg PO DAILY February 14, 2025 12:00am 60 actuat fluticasone propionate 0.232 mg/actuat / salmeterol xinafoate 0.014 mg/actuat dry powder inhaler (11 sources) Corticosteroid , beta2-Adrenerg ic Agonist Start: 07-24-2019 take 1 puff(s) by inhalation every twelve hours Fluticasone Propion-Salmeterol 1 PUFF inhaler Active 1 NMA IH EVERY 12 HOURS 0 July 24, 2019 12:00am Start: 08-26-2014 ADVAIR DISKUS 500-50 MCG/DOSE AEPB as directed FLUTICASONE-SALMETEROL [id number] Faviola Gamez hydroCHLOROthiazide 12.5 mg oral tablet (3 sources) Thiazide Diuretic Start: 01-06-2025 take 1 tablet by mouth once daily Hydrochlorothiazide 12.5 mg tablet Active 12.5 mg PO daily January 06, 2025 1:00am losartan potassium 50 mg oral tablet (3 sources) Angiotensin 2 Receptor Dina Start: 01-06-2025 take 1 tablet by mouth once daily Losartan 50 mg tablet Active 50 mg PO daily January 06, 2025 1:00am Multivitamin With Folic Acid (5 sources) Start: 07-24-2019 take 1 tablet by mouth once daily Multivitamin With Folic Acid Active 1 TABLET PO DAILY@0800 July 24, 2019 12:00am Multivitamin With Folic Acid 1 TABLET tablet (3 sources) Start: 07-24-2019 take 1 tablet by mouth once daily Multivitamin With Folic Acid 1 TABLET tablet Active 1 {tbl} PO DAILY@0800 0 July 24, 2019 12:00am Start: 07-24-2019 take 1 tablet by kamryn th once daily Multivitamin With Folic Acid 1 TABLET tablet Active 1 {tbl} PO DAILY@0800 July 24, 2019 12:00am levothyroxine sodium 0.075 mg oral tablet (19 sources) l-Thyroxine Start: 12-14-2017 End: 07-24-2019 take 1 tablet by mouth once daily Levothyroxine 75 MCG tablet Active 75 ug PO DAILY@0600 0 July 24, 2019 12:00am Start: 08-26-2014 SYNTHROID 75 M CG TABS once daily LEVOTHYROXINE SODIUM [id number] Faviola Gamez Vitamins A,C,T-Gkyc-Vrahbt (Preservision Areds) 4,296 mcg-226 mg-90 mg capsule (2 sources) Start: 02-14-2025 Vitamins A,C,E -Zinc-Copper (Preservision Areds) 4,296 mcg-226 mg-90 mg capsule Active 1 NMA PO TWICE A DAY February 14, 2025 12:00am Completed/Discontinued Medications Medication Drug Class(es) Dates Sig (Normalized) Sig (Original) acetaminophen 300 mg / codeine phosphate 30 mg oral tablet (8 sources) Opioid Agonist Start: 10-15-2018 End: 06-17-2019 Acetaminophen-Codei ne 1 TABLET tablet Discontinued 1 - 2 {tbl} PO EVERY 6 HOURS NEEDED as needed for Pain 30 0 October 15, 2018 1:00am June 17, 2019 11:46am Start: 10-15-2018 End: 06-17-2019 take 1 tablet by mouth every six hours as needed Acetaminophen-Codeine Discontinued 1 - 2 TABLET PO EVERY 6 HOURS NEEDED October 15, 2018 1:00am June 17, 2019 11:46am acetaminophen 325 mg / HYDROcodone bitartrate 5 mg oral tablet (18 sources) Opioid Agonist Start: 02-18-2025 End: 03-03-2025 Hydrocodone-Acetaminophen 5- 325 mg tablet Discontinued 1 {tbl} PO Q4H as needed for pain 7 3 0 February 18, 2025 March 03, 2025 11:25am Other acute postprocedural pain Other acute postprocedural pain Start: 07-24-2019 End: 08-05-2019 Hydrocodone-Acetaminophen 1 TABLET tablet Discontinued 1 - 2 {tbl} PO EVERY 6 HOURS NEEDED as needed for Pain 40 5 0 July 24, 2019 July 28, 2019 12:00am August 05, 2019 12:08am Status post total left knee replacement Presence of left artificial knee joint Start: 07-24-2019 End: 08-05-2019 take 1 tablet by mouth every six hours as needed Hydrocodone-Acetaminophen Discontinued 1 - 2 TABLET PO EVERY 6 HOURS NEEDED 40 5 July 24, 2019 August 05, 2019 12:08am Start: 10-16-2018 End: 10-21-2018 Hydrocodone-Acetaminophen 5- 325 mg tablet Discontinued 2 {tbl} PO EVERY 6 HOURS as needed for pain 30 5 0 October 16, 2018 October 20, 2018 1:00am October 21, 2018 1:19am stop all other narcotics and tylenol products Start: 10-16-2018 End: 10-21-2018 take 2 tablets by mouth every six hours Hydrocodone-Acetaminophen Discontinued 2 TABLET PO EVERY 6 HOURS 30 5 October 16, 2018 October 21, 2018 1:19am stop all other narcotics and tylenol products amLODIPine 10 mg oral tablet (20 sources) Dihydropyridine Calcium Channel Dina Start: 07-24-2019 End: 01-06-2025 take 1 tablet by mouth once daily Amlodipine 10 MG tablet Discontinued 10 mg PO DAILY 30 2 July 24, 2019 12:00am January 06, 2025 2:11pm Start: 07-11-2019 End: 07-24-2019 take 1 tablet by mouth once daily Amlodipine 5 MG tablet Discontinued 5 mg PO DAILY July 11, 2019 12:22pm July 24, 2019 9:34am BP apixaban 2.5 mg oral tablet (16 sources) Factor Xa Inhibitor Start: 07-11-2019 End: 07-24-2019 take 1 tablet by mouth twice daily Apixaban 2.5 MG tablet Discontinued 2.5 mg PO TWICE A DAY July 11, 2019 2:05pm July 24, 2019 9:36am Check with primary doctor 120 actuat budesonide 0.16 mg/actuat / formoterol fumarate 0.0045 mg/actuat metered dose inhaler (8 sources) Corticosteroid, beta2-Adrenergic Agonist Start: 08-01-2018 End: 07-24-2019 Budesonide-Formoter ol 1 INHALER inhaler Discontinued 2 NMA inhalation AT BEDTIME August 01, 2018 12:00am July 24, 2019 9:34am ASTHMA Start: 08-01-2018 End: 07-24-2019 take 1 puff(s) by inhalation at bedtime Budesonide-Formoterol Discontinued 2 PUFF inhalation AT BEDTIME August 01, 2018 12:00am July 24, 2019 9:34am Handicap Placard (16 sources) Start: 08-28-2019 End: 02-14-2025 Handicap Placard Discontinue d 0 .ROUTE 12 times per day 1 0 August 28, 2019 12:20pm February 14, 2025 9:09am one year 12XD; Start: 08-28-2019 End: 02-14-2025 Handicap Placard Discontinue d 0 .ROUTE 12 times per day 1 August 28, 2019 12:20pm February 14, 2025 9:09am one year 12XD; Start: 08-28-[address] Active 0 .ROUTE 12 times per day August 28, 2019 12:20pm one year 12XD; Start: 08-23-2019 End: 08-28-2019 Handicap Placard Discontinue d 0 .ROUTE 12 times per day 1 August 23, 2019 12:00am August 28, 2019 12:21pm one year 12XD; Start: 08-23-2019 End: 08-28-2019 Handicap Placard Discontinue d 0 .ROUTE 12 times per day 1 August 23, 2019 12:00am August 28, 2019 12:21pm one year 12XD; handicap placard (16 sources) Start: 09-06-2019 End: 02-14-2025 handicap placard Discontinue d 0 .ROUTE .COMPLEX 1 0 September 06, 2019 12:00am February 14, 2025 9:09am 6 month Start: 09-06-2019 End: 02-14-2025 handicap placard Discontinue d 0 .ROUTE .COMPLEX 1 September 06, 2019 12:00am February 14, 2025 9:09am 6 month Start: 09-06-[address] Active 0 .ROUTE .COMPLEX 1 September 06, 2019 12:00am 6 month Start: 08-23-2019 End: 08-28-2019 handicap placard Discontinue d 0 .ROUTE .COMPLEX 1 0 August 23, 2019 12:00am August 28, 2019 12:21pm 1 year ; Start: 08-23-2019 End: 08-28-2019 handicap placard Discontinue d 0 .ROUTE .COMPLEX 1 August 23, 2019 12:00am August 28, 2019 12:21pm 1 year ; hydroCHLOROthiazide 12.5 mg / losartan potassium 100 mg oral tablet (8 sources) Thiazide Diuretic, Angiotensin 2 Receptor Dina Start: 10-04-2018 End: 07-11-2019 Losartan-Hydrochlorothiazide 100-12.5 mg tablet Discontinued 1 {tbl} PO DAILY October 04, 2018 1:00am July 11, 2019 8:58am BP Start: 10-04-2018 End: 07-11-2019 take 1 tablet by mouth once daily Losartan-Hydrochlorothiazide Discontinue d 1 TABLET PO DAILY October 04, 2018 1:00am July 11, 2019 8:58am MULTIPLE VITAMIN (3 sources) Start: 08-26-2014 MULTI-VITAMINS TABS once daily MULTIPLE VITAMIN [id number] Faviola Gamez Multivitamin preparation (5 sources) Start: 12-14-2017 End: 07-24-2019 take 1 tablet by mouth once daily Multivitamin Discontinued 1 TABLET PO daily December 14, 2017 1:00am July 24, 2019 9:35am Multivitamin tablet (3 sources) Start: 12-14-2017 End: 07-24-2019 Multivitamin tablet Discontinued 1 {tbl} PO daily December 14, 2017 1:00am July 24, 2019 9:35am SUPPLEMENT Start: 12-14-2017 End: 07-24-2019 Multivitamin tablet Disconti nued 1 {tbl} PO daily December 14, 2017 1:00am July 24, 2019 9:35am oxyCODONE hydrochloride 5 mg oral capsule (8 sources) Opioid Agonist Start: 07-26-2019 End: 01-06-2025 take 1-2 tablets by mouth every six hours as needed for pain Oxycodone 5 mg capsule Discontinued 5 mg PO DAILY 56 0 July 26, 2019 January 06, 2025 2:12pm Other acute postprocedural pain 1-2 tabs p.o. every 6 hours as needed pain Problems Active Problems Problem Classification Problem Date Documented Date Episodic/Chronic Chronic obstructive pulmonary disease and bronchiectasis (8 sources) Chronic obstructive lung disease; Translations: [Chronic obstructive pulmonary disease, unspecified] 07-19-2019 Chronic Essential hypertension (8 sources) Hypertensive disorder; Translations: [Essential (primary) hypertension] 07-19-2019 Chronic Joint disorders and dislocations; trauma-related (2 sources) Derangement of knee; Translations: [Other internal derangements of left knee] Onset: 07-19-2017 07-31-2017 Chronic Other aftercare (2 sources) Follow-up status; Translations: [Encounter for other orthopedic aftercare] 03-03-2025 Episodic Other connective tissue disease (8 sources) History of total knee arthroplasty; Translations: [Presence of left artificial knee joint] 07-19-2019 Chronic Other diseases of kidney and ureters (8 sources) Renal impairment; Translations: [Disorder of kidney and ureter, unspecified] 07-19-2019 Episodic Other nervous system disorders (6 sources) Carpal tunnel syndrome; Translations: [Carpal tunnel syndrome, bilateral upper limbs] 01-06-2025 Chronic Other nervous system disorders (2 sources) Carpal tunnel syndrome, bilateral upper limbs; Translations: [Carpal tunnel syndrome, bilateral upper limbs] Onset: 03-06-2025 Chronic Other nervous system disorders (2 sources) Acute postoperative pain; Translations: [Other acute postprocedural pain] 02-18-2025 Episodic Thyroid disorders (8 sources) Hypothyroidism; Translations: [Hypothyroidism, unspecified] 07-19-2019 Chronic Past or Other Problems Problem Classification Problem Date Documented Da te Episodic/Chronic Joint disorders and dislocations; trauma-related (2 sources) Other tear of medial meniscus, current injury, left knee, initial encounter; Translations: [Other tear of medial meniscus, current injury, left knee, initial encounter] Onset: 07-19-2017 07-31-2017 Episodic Other acquired deformities (3 sources) Acquired spondylolisthesis; Translations: [Spondylolisthesis, site unspecified] Onset: 09-03-2014 09-03-2014 Episodic Other connective tissue disease (3 sources) Pain in limb; Translations: [Pain in unspecified limb] Onset: 08-26-2014 08-26-2014 Episodic Other non-traumatic joint disorders (2 sources) Pain in left knee; Translations: [Pain in left knee] Onset: 07-19-2017 07-31-2017 Episodic Other non-traumatic joint disorders (2 sources) Pain in right wrist; Translations: [Pain in right wrist] Onset: 01-14-2025 Episodic Other non-traumatic joint disorders (2 sources) Pain in left wrist; Translations: [Pain in left wrist] Onset: 01-14-2025 Episodic Spondylosis; intervertebral disc disorders; other back problems (6 sources) Lumbar radiculopathy; Translations: [Low back pain] Onset: 09-03-2014 11-19-2014 Episodic Unclassified (8 sources) h/o left knee scope 06-01-2022 Results Test Name Value Interpretation Reference Range Facility MR/PATMayte 07-08-2025 MR/PAT.[facility] Medical Records Department [address] [place] [address] PAT - Anesthesia 07/08/25 1039 MR#: [id number] Acct: [id number] Name: TAMAR THOMPSON Rep #: [id number] : 1940 84 From: Arslan Berman MD PCP: Dr. 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 When Was Last Pacemaker Check QUESTION #4 FULL TEXT: You/Your Family Experience fever (hyperthermia) with Anesthesia Last Oral Intake Last Oral intake: Last Oral Intake NPO since Meds taken in AM with sips of water? Meds patient instructed to take am of surgery PONV PONV - wood die maker: PONV - wood die maker Female Yes 07/08/25 09:23 HX of Motion Sickness No 07/08/25 09:23 HX of N/V After Surgery No 07/08/25 09:23 Non-Smoker Yes 07/08/25 09:23 Duration of Surgery greater No 07/08/25 09:23 than 60 minutes Number of Risk Factors 2 07/08/25 09:23 PONV Score Moderate Risk 07/08/25 09:23 Height Weight Height Weight: Anesthesia: Height Weight Height 5 ft 7 in 06/17/25 10:36 Respiratory Assessment Respiratory Assessment - wood die maker: Respiratory Tract Infection Hx - wood die maker Hx Respiratory Tract Infection No 07/08/25 09:23 STOP Sleep Apnea STOP Sleep Apnea - wood die maker: STOP Sleep Apnea - wood die maker Hx Hypertension Yes: PER PT, CONTROLLED ON 07/08/25 09:23 MEDS Hx Sleep Apnea No 07/08/25 09:23 CPAP No 07/08/25 09:23 BIPAP Do you snore loudly (louder No 07/08/25 09:23 than talking or can be heard Do you often feel tired/ No 07/08/25 09:23 fatigued/ sleepy during daytime? Has anyone observed you stop No 07/08/25 09:23 breathing during sleep? STOP Results Negative 07/08/25 09:23 QUESTION #5 FULL TEXT : Do you snore loudly (louder than talking or can be heard through closed doors)? 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 Specify any problems Hx of Preganancy in last 3 No 07/08/25 09:23 Months Nurse Filling Out Transfusion NATALIIA 07/08/25 09:23 Questions: Date: 07/08/25 07/08/25 09:23 Time: 09:28 07/08/25 09:23 Patient unable to answer at this time (ie. confused, unrespo /Reproducti on History /Reproducti ve History - wood die maker: /Reproducti ve Hx- wood die maker Hx Now No 07/08/25 09:23 Gestational Age (in weeks): EDC: Hx Hx Para Hx Section SAB No 07/08/25 09:23 PFSH Medical History (Updated 07/08/25 @ 09:37 by Rosalia Woodall) Gout Wears glasses Cancer Post-menopausal Anxiety Thyroid disease Bladder disease Walker as ambulation aid Arthritis Back pain Injury of head and neck Former smoker Shortness of breath on exertion History of pain when walking History of echocardiogram Hypertension COPD (chronic obstructive pulmonary disease) Home Medications ???Medication ???Instructions ???Recorded ???Last Taken ???Type fluticasone 232 mcg-salmeterol 14 1 puff IH Q12 07/24/19 02/18/25 0 5:15 Rx mcg/actuation breath activated powdr levothyroxine 75 mcg tablet 75 mcg PO DAILY@0607/24/1902/04 05:15 Rx multivitamin with folic acid 400 1 tab PO DAILY@0807/24/1902/16 Rx mcg tab (more content not included)... [facility] Orthopedic Visit Reporton Orthopedic Visit Report [facility] [address] [place] [address] [address] [place] [address] OFFICE VISIT Date of Service: 06/25/25 MR#: [id number] Acct: [id number] Name: TAMAR THOMPSON Rep #: [id number] : 1940 Provider: Dr. Orion martino DO Age/Sex: 84/F Location: [facility] Status: Signed Intake Vital Signs 02/18/25 06:37 06/17/25 10:36 Height 5 ft 7 in 5 ft 7 in Intake Visit Reasons: LEFT WRIST Accompanied by: Self Allergies No Known Allergies Allergy (Verified 06/25/25 11:07) Medications ???Medication ???Instructions ???Recorded ???Confirmed ???Type fluticasone 232 mcg-salmeterol 14 1 puff IH Q12 07/24/19 06/25/25 R x mcg/actuation breath activated powdr levothyroxine 75 mcg tablet 75 mcg PO DAILY@59907/24/1906/07 Rx multivitamin with folic acid 400 1 tab PO DAILY@79907/24/1906/25 Rx mcg tablet hydrochlorothiazide 12.5 mg tablet 12.5 mg PO QDAY 01/06/25 5 History losartan 50 mg tablet 50 mg PO QDAY 01/06/25 06/25/25 Hi story calcium carbonate (Calcium 600) 600 mg PO DAILY 02/14/25 06/25/25 History vitamins A,C,E-dxru-leugoj 4,296 1 cap PO BID 02/14/25 06/25/25 His tory mcg-226 mg-90 mg capsule (PreserVision AREDS) amoxicillin 500 mg tablet 500 mg PO ONCE PRN before dental 0 02/18/25 06/25/25 History procedure amoxicillin 500 mg tablet 2,000 mg (4 x 500 mg) PO ONCE #4 0 05/23/25 06/25/25 Rx tabs Have you fallen in the past year?: No PFSH Medical History Wears glasses Cancer Post-menopausal Anxiety Thyroid disease Bladder disease Walker as ambulation aid Arthritis Back pain Injury of head and neck Former smoker Shortness of breath on exertion History of pain when walking History of echocardiogram Hypertension COPD (chronic obstructive pulmonary disease) Surgical History History of carpal tunnel release Hx of right cataract extraction Hx of left cataract extraction Hx of colonoscopy Hx of varicose vein ligation and stripping Hx of hemorrhoidectomy Hx of total knee arthroplasty h/o left knee scope History of hysterectomy Family History Mother CVA (cerebral vascular accident) Brother Kidney disease Aneurysm Not sure what type, 1969 Social History Smoking Status: Former smoker pack-years: 57 alcohol intake: never HPI LEFT WRIST Details: This documentation accurately reflects the service provided and the decisions made by me, Dr. Orion Diaz, DO 06/25/25823. Part of today???s visit was documented by Mandi ROBLERO, acting as scribe. TAMAR THOMPSON is a 84 year old F here today for the left wrist wanting to discuss a carpal tunnel release. She would like to have the surgery on July 22 and to be later in the day. She does have numbness, tingling and stiffness in the left hand. In addition she does have triggering of the ring finger for over 6 months she has to use her other hand to open it she has not had treatment on that before. She is very happy with the right hand after the carpal tunnel surgery. 03/03/2025 visit:s/p right carpal tunnel release DOS 02/18/2025. Patient states she is doing well and doesn't have any pain in the right wrist today. She states she is very pleased with the surgery and ready to proceed with the left wrist. Plan:She should continue to wash the incision with antibacterial soap daily and keep it covered for the day. If she does anything at home she should keep it covered. She would like to proceed with the left wrist carpal tunnel release but thinking possibly fall. Recommend she wait a little while until the right wrist is healed completely. She should continue to work on her range of motion of the wrist to get back to normal. She shouldn't lift anything over 5 pounds for the next week and after a week her weight restrictions. After her weight restrictions are lifted after a week she is able to take the assistive device off of her walker. Once she is ready to proceed with the left wrist carpal tunnel release she should let the office know. 02/12/2025 visit:here today for bilateral hand EMG review. She denies nay changes. She does note that she needs a refill of the antibiotic as she is having some dental procedures done and had a knee replacement in 2019. Plan:Patient is here today for EMG review of her bilateral hands. I explained to patient that she does have severe carpal tunnel syndrome of both hands. We spoke about surgical versus nonsurgical intervention. I can't promise that the nerve will come back after the surgery also due to the severity of her carpal tunnel. As far as her using the wal (more content not included)... [facility] Orthopedic Visit Reporton Orthopedic Visit Report [facility] [address] [place], [place] [id number] OFFICE VISIT Date of Service: 03/03/25 MR#: [id number] Acct: [id number] Name: TAMAR THOMPSON Rep #: [id number] : 1940 Provider: Dr. Orion martino DO Age/Sex: 84/F Location: [facility] Status: Signed Intake Vital Signs 01/06/25 13:05 02/18/25 06:37 Height 5 ft 7 in 5 ft 7 in Intake Visit Reasons: right wrist Chief Complaint: 2 week post-op Accompanied by: Self Is patient in pain?: No Allergies No Known Allergies Allergy (Verified 03/03/25 11:25) Medications ???Medication ???Instructions ???Recorded ???Confirmed ???Type fluticasone 232 mcg-salmeterol 14 1 puff IH Q12 07/24/19 03/03/25 R x mcg/actuation breath activated powdr levothyroxine 75 mcg tablet 75 mcg PO DAILY@0600 07/24/1902/05 Rx multivitamin with folic acid 400 1 tab PO DAILY@0800 07/24/1903/03 Rx mcg tablet hydrochlorothiazide 12.5 mg tablet 12.5 mg PO QDAY 01/06/25 5 History losartan 50 mg tablet 50 mg PO QDAY 01/06/25 03/03/25 Hi story calcium carbonate (Calcium 600) 600 mg PO DAILY 02/14/25 03/03/25 History vitamins A,C,Y-paks-nrgtic 4,296 1 cap PO BID 02/14/25 03/03/25 His tory mcg-226 mg-90 mg capsule (PreserVision AREDS) amoxicillin 500 mg tablet 500 mg PO ONCE PRN before dental 0 02/18/25 03/03/25 History procedure Have you fallen in the past year?: No PFSH Medical History (Updated 03/03/25 @ 11:[address] Orion Diaz DO) Wears glasses Cancer Post-menopausal Anxiety Thyroid disease Bladder disease Walker as ambulation aid Arthritis Back pain Injury of head and neck Former smoker Shortness of breath on exertion History of pain when walking History of echocardiogram Hypertension COPD (chronic obstructive pulmonary disease) Surgical History History of carpal tunnel release Hx of right cataract extraction Hx of left cataract extraction Hx of colonoscopy Hx of varicose vein ligation and stripping Hx of hemorrhoidectomy Hx of total knee arthroplasty h/o left knee scope History of hysterectomy Family History Mother CVA (cerebral vascular accident) Brother Kidney disease Aneurysm Not sure what type, 1970 Social History Smoking Status: Former smoker pack-years: 57 alcohol intake: never HPI right wrist Details: This documentation accurately reflects the service provided and the decisions made by me, Dr. Orion Diaz DO 03/03/25 0811. Part of today???s visit was documented by Brianne Monsalve ATC, acting as scribe. TAMAR THOMPSON is a 84 year old F here today for s/p right carpal tunnel release DOS 02/18/2025. Patient states she is doing well and doesn't have any pain in the right wrist today. She states she is very pleased with the surgery and ready to proceed with the left wrist. Ortho Exam General General: Yes no acute distress and Yes well groomed Neurologic: Yes alert and Yes oriented x3 Psychologic: Yes reasonable and appropriate Right Wrist/Hand Skin/Wound: Yes CDI, Yes suture/harshad removed and Yes capillary refill normal WRIST: Incision well-approximated no signs of infection sutures removed today she has no signs of infection good finger range of motion Right Foot/Ankle Skin/Wound: Yes suture/harshad removed Supplemental Info 02/18/2025 right open carpal tunnel release: Dr. Diaz 02/05/2025 EMG bilateral upper extremities: Electrodiagnostic impression: This is an abnormal study in the upper limbs 4 1 electrodiagnostic findings suggestive of bilateral median mononeuropathy. This consistent with a moderate to advanced bilateral carpal tunnel syndrome. Coding Level of Care Code Global Post Op Diagnoses Orthopedic aftercare Z47.89 Assessment and Plan Assessment and Plan (1) Orthopedic aftercare: Status: Acute Plan She should continue to wash the incision with antibacterial soap daily and keep it covered for the day. If she does anything at home she should keep it covered. She would like to proceed with the left wrist carpal tunnel release but thinking possibly fall. Recommend she wait a little while until the right wrist is healed completely. She should continue to work on her range of motion of the wrist to get back to normal. She shouldn't lift anything over 5 pounds for the next week and after a week her weight restrictions. After her weight restrictions are lifted after a week she is able to take the assistive device off of her walker. Once she is ready to proceed with the left wrist carpal tunnel release she should let the office know. Follow up in an as needed basis or soone (more content not included)... [facility] Discharge Instructionon - Discharge Instruction [facility] Medical Records Department [address] [place] [address] Instructions for Home/Discharge Instructions 02/18/25 0759 MR#: [id number] Acct: [id number] Name: TAMAR THOPMSON Rep #: [id number] : 1940 84 From: Orion Diaz DO PCP: Dr. Katherin Aguirre MD Status:REG [facility] Discharge Instructions Diet Discharge Diet: No restrictions Dressing / Incision Call your doctor if you observe: Shortness of breath and Chest pain Additional Dressing/Incision Instructions:: Ice and elevate operative extremity next 72 hours. Keep dressing on clean and dry for 48 hours then may remove and allow warm soapy water to rinse over incision but do not submerge until sutures are out. Then apply bandaid over incision and change daily. encourage finger range of motion. Not lift more than 1/2 pound. Minimize narcotic use only as needed and directed, may use OTC NSAID and Tylenol to supplement/substitut e for pain control. Follow Up Care Please Follow Up With: Orion Diaz DO When: 2 weeks Test Results: Test results from this visit will be discussed in further detail at your follow-up appointment, if applicable. Discharge Plan Admission Primary Reason for Your Visit: Right carpal tunnel release Attending Provider: Orion Diaz Primary Care Provider: Katherin Aguirre Instructions Print Language: Austrian Discharge Orders/Prescriptions Prescriptions: New hydrocodone-acetamin ophen 5-325 mg tablet 1 tab PO Q4H PRN (Reason: pain) 3 Days Qty: 7 0RF No Action hydrochlorothiazide 12.5 mg tablet 12.5 mg PO QDAY losartan 50 mg tablet 50 mg PO QDAY levothyroxine 75 MCG tablet 75 mcg PO DAILY@0600 0RF multivitamin with folic acid 1 TABLET tablet 1 tab PO DAILY@0800 0RF fluticasone propion-salmeterol 1 PUFF inhaler 1 puff IH Q12 0RF calcium carbonate [Calcium 600] 600 mg calcium (1,500 mg) tablet 600 mg PO DAILY PreserVision AREDS 4,296 mcg-226 mg-90 mg capsule 1 cap PO BID amoxicillin 500 mg tablet 500 mg PO ONCE PRN (Reason: before dental procedure) Rx Instructions: take 4 tabs within 1 hr prior to dental procedure. Referrals / Follow Up: Katherin Aguirre MD [Primary Care Provider] - Disposition Disposition (needs filled in before D/C Order can be placed): Home, Self Care 02/18/25 08 Orion Diaz DO CC: Dr. Katherin Aguirre MD Signed [facility] MR/POSTOP.ANEon 02-18-2025 MR/POSTOP.[facility] Medical Records Department [address] [place] [address] Anesthesia Postop Eval I 02/18/25 0804 MR#: [id number] Acct: [id number] Name: TAMAR THOMPSON Rep #: [id number] : 1940 84 From: Pb Tao CRNA PCP: Dr. Katherin Aguirre MD Status:REG SDC Y Race: C Location: [place] [address] Anesthesia: Postop Eval I Current Vital Signs Temperature: 97.9 F Pulse Rate: 80 Blood Pressure: 97/62 Respiratory Rate: 18 Pulse Ox: 99 Oxygen Delivery Method: Simple Mask Oxygen Flow Rate (L/min): 4 Assessment Airway patent: Yes Spontaneous unlabored respirations: Yes Mental status: Awake nausea: No Vomiting: No Anesthesia Complication: No Fluid Hydration Crystalloid volume administer (ml): 500 Total IV fluid infused: 500 Progress Note Anesthesia document: Postop Eval 1 completed: Yes 02/18/25804 Date Pb Tao ENTRY LEVEL MARKETING REPRESENTATIVE Cosigner Signature: Date CC: Signed [facility] [id number] 02-18-2025 MR/POSTOPAN2 [facility] Medical Records Department [address] [place] [address] Anesthesia Postop Eval II 02/18/25 0854 MR#: [id number] Acct: [id number] Name: TAMAR THOMPSON Rep #: [id number] : 1940 84 From: Arslan Berman MD PCP: Dr. Katherin Aguirre MD Status:REG SDC Y Race: C Location: [place] [address] Anesthesia Postop Eval I Sum Postop Eval Completion status Anesthesia document: Postop Eval 1 completed: Yes Anesthesia Postop Eval I Summary Anesthesia Postop Eval I Summary: Anesthesia Postop Eval I: Assessment Summary Airway patent Yes 02/18/25 08:05 ENTRY LEVEL MARKETING REPRESENTATIVE.JBLOU Spontaneous unlabored Yes 02/18/25 08:05 ENTRY LEVEL MARKETING REPRESENTATIVE.JBLOU respirations Mental status Awake 02/18/25 08:05 ENTRY LEVEL MARKETING REPRESENTATIVE.JBLOU nausea No 02/18/25 08:05 ENTRY LEVEL MARKETING REPRESENTATIVE.JBLOU Vomiting No 02/18/25 08:05 ENTRY LEVEL MARKETING REPRESENTATIVE.JBLOU Anesthesia Postop Eval I: Fluid Summary Crystalloid volume administer 500 02/18/25 08:05 ENTRY LEVEL MARKETING REPRESENTATIVE.JBLOU (ml) Colloids volume administered ( ml) Blood Product volume administered (ml) Total IV fluid infused 500 02/18/25 08:05 ENTRY LEVEL MARKETING REPRESENTATIVE.JBLOU Anesthesia Postop Eval I: Summary Notes Anesthesia Complication No 02/18/25 08:05 ENTRY LEVEL MARKETING REPRESENTATIVE.JBLOU Anesthesia Complication Comment: Post-operative progress note Anesthesia: Postop Eval II Evaluation Mental status: Awake and Calm Pain Level: 1 nausea: No Vomiting: No Complications Anesthesia Complication: No 02/18/25 0854 Date Arslan Berman MD Cosigner Signature: Date CC: Signed [facility] Operative Reporton 5 Operative Report [facility] Medical Records Department [address] [place] [address] Operative Report 02/18/25 0758 MR#: [id number] Acct: [id number] Name: TAMAR THOMPSON Rep #: [id number] : 1940 84 From: Orion Diaz DO PCP: Dr. Katherin Aguirre MD Status:REG [facility] Location: [place] [address] Operative Report (Standard) Operative Information Date of Procedure: 02/18/25 Pre-Operative Diagnosis: Right carpal tunnel syndrome Post-Operative Diagnosis: Same Surgery/Procedure Performed: Right carpal tunnel release concierge: Yes [employer] Supervisor: Hugo Ramos Tasks completed by assistant city attorney: Opening closing Type of Anesthesia: Local MAC RN Documented Start/Stop Times: Operation Date: 02/18/25 07:30 Case Time Into Pre-Op 02/18/25 06:15 Out of Pre-Op 02/18/25 07:22 Anesthesia Start 02/18/25 07:26 Into Room 02/18/25 07:26 Procedure Start 02/18/25 07:41 Procedure End 02/18/25 07:54 Anesthesia End 02/18/25 07:58 Out of Room 02/18/25 07:58 Procedure Start Time: 07:41 Procedure Stop Time: 07:54 Select all DRAINS/GRAFTS/IMPLAN TS that apply: None Estimated Blood Loss: 0 Specimen collected: No Description of surgery: Preoperative diagnosis; right carpal tunnel syndrome Postoperative diagnosis; same Procedure: Right open carpal tunnel release Anesthesia: Local with MAC Tourniquet time; 10 minutes 250 mm Hg Complications: None Indication for procedure; This is a 84-year-old female with long-standing symptoms consistent with carpal tunnel syndrome the patient did have electrodiagnostic evidence of this and has failed conservative treatment. Risks benefits and alternatives were reviewed including risks of bleeding infection nerve artery tissue damage need for further surgery and continued pain and symptoms, hypersensitivity to scar and Pillar pain. Procedure; The patient was met in the preoperative holding area the operative extremity was identified by both patient and physician and was marked the patient was met by anesthesia and brought back to the operating room and transferred to the operating table in the supine position. Anesthesia was started. A well-padded tourniquet was placed on the operative upper extremity. The patient was prepped and draped in the usual sterile fashion. A timeout was called to ensure the proper patient procedure and extremity were being contemplated. 0.5 percent lidocaine with epinephrine was injected into the incisional area. An Esmarch was used to exsanguinate the extremity. The tourniquet was inflated to 250 mmHg. A midline incision was made with a 15 blade scalpel between the thenar and hypothenar eminence. This was carried down through the skin and subcutaneous tissue. Walt retractors were then used, a deep blade scalpel was used to make a deep incision in the palmar aponeurosis. The walt retractors were then placed deep to this and the transverse carpal ligament was identified a perforation was made with a scalpel and a Littler scissors were used to complete the release of the transverse carpal ligament distally under direct visualization with the tips facing ulnarly until the perivascular fat was reached. Then turning our attention proximally using a tension slide technique the proximal extent of the transverse carpal ligament was released . There was noted to be hourglass configuration to the median nerve and hypertrophy of the transverse carpal ligament without other findings. The wound was thoroughly irrigated and was closed with 4-0 nylon vertical mattress stitches. Dressing was applied in the form of xeroform 4 x 4, web roll and an sandor wrap. Tourniquet was let down there is no intraoperative complications patient tolerated the procedure well and was transferred to the PACU. All counts were correct. Surgical Findings: Hypertrophied transverse carpal ligament Complications Complications: No 02/18/25 0759 Cosigner Signature (if applicable): CC: Dr. Katherin Aguirre MD; Dr. Orion Diaz DO Signed [facility] MR/PAT.Angelo 02-14-2025 MR/PAT.[facility] Medical Records Department [address] [place] [address] PAT - Anesthesia 02/14/25 1056 MR#: [id number] Acct: [id number] Name: TAMAR THOMPOSN Rep #: [id number] : 1940 84 From: Abdulaziz Atwood MD PCP: Dr. Katherin Aguirre MD Status:PRE [facility] Y Race: C Location: [facility] Pre-Assessment Diagnosis/Proposed Procedure Planned Operative Procedure(s): RIGHT OPEN CARPAL TUNNEL RELEASE Anesthesia History Anesthesia History - wood die maker: Anesthesia History - wood die maker Hx Hospitalization No 02/14/25 09:14 Any Problems With Anesthesia Yes: CONFUSION AFTER 201802/14/25 09:14 SURGERY Cholinesterase deficiency No 02/14/25 09:14 You/Your Family Experience No 02/14/25 09:14 fever (hyperthermia) with Relationship Recent Exposure to Contagious No 07/09/19 09:54 Disease Does patient have nerve No 02/14/25 09:14 stimulator Patient instructed to have device shut off --Does patient have Pacemaker or ICD? When Was Last Pacemaker Check QUESTION #4 FULL TEXT: You/Your Family Experience fever (hyperthermia) with Anesthesia Last Oral Intake Last Oral intake: Last Oral Intake NPO since Meds taken in AM with sips of water? Meds patient instructed to take am of surgery PONV PONV - wood die maker: PONV - wood die maker Female Yes 02/14/25 09:14 HX of Motion Sickness No 02/14/25 09:14 HX of N/V After Surgery No 02/14/25 09:14 Non-Smoker Yes 02/14/25 09:14 Duration of Surgery greater No 02/14/25 09:14 than 60 minutes Number of Risk Factors 2 02/14/25 09:14 PONV Score Moderate Risk 02/14/25 09:14 Height Weight Height Weight: Anesthesia: Height Weight Height 5 ft 7 in 01/06/25 13:05 Respiratory Assessment Respiratory Assessment - wood die maker: Respiratory Tract Infection Hx - wood die maker Hx Respiratory Tract Infection No 02/14/25 09:14 STOP Sleep Apnea STOP Sleep Apnea - wood die maker: STOP Sleep Apnea - wood die maker Hx Hypertension Yes: CONTROLLED WITH MED 02/14/25 09:14 Hx Sleep Apnea No 02/14/25 09:14 CPAP No 07/11/19 12:00 BIPAP Do you snore loudly (louder Yes 02/14/25 09:14 than talking or can be heard Do you often feel tired/ No 02/14/25 09:14 fatigued/ sleepy during daytime? Has anyone observed you stop No 02/14/25 09:14 breathing during sleep? STOP Results Positive 02/14/25 09:14 QUESTION #5 FULL TEXT : Do you snore loudly (louder than talking or can be heard through closed doors)? 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 Specify any problems Hx of Preganancy in last 3 No 02/14/25 09:14 Months Nurse Filling Out Transfusion DSCHRIBER 02/14/25 09:14 Questions: Date: 02/14/25 02/14/25 09:14 Time: :02/14/25 09:14 Patient unable to answer at this time (ie. confused, unrespo /Reproducti on History /Reproducti ve History - wood die maker: /Reproducti ve Hx- wood die maker Hx Now No 02/14/25 09:14 Gestational Age (in weeks): EDC: Hx Hx Para Hx Section SAB No 02/14/25 09:14 [facility] Medical History (Updated 02/14/25 @ 09:29 by May Valdes) Wears glasses Cancer Post-menopausal Anxiety Thyroid disease Bladder disease Walker as ambulation aid Arthritis Back pain Injury of head and neck Former smoker Shortness of breath on exertion History of pain when walking History of echocardiogram Hypertension COPD (chronic obstructive pulmonary disease) Home Medications ???Medication ???Instructions ???Recorded ???Last Taken ???Type fluticasone 232 mcg-salmeterol 14 1 puff IH Q12 07/24/19 Unknown Rx mcg/actuation breath activated powdr levothyroxine 75 mcg tablet 75 mcg PO DAILY@0607/24/19 Unkn own Rx multivitamin with folic acid 400 1 tab PO DAILY@0807/24/19 Unkno wn Rx mcg tablet hydrochlorothiazide 12.5 mg tablet 12.5 mg PO QD (more content not included)... [facility] Orthopedic Visit Reporton Orthopedic Visit Report [facility] [address] [place] [id number] OFFICE VISIT Date of Service: 02/12/25 MR#: [id number] Acct: [id number] Name: TAMAR THOMPSON Rep #: [id number] : 1940 Provider: Dr. Orion martino, Age/Sex: 84/F Location: [facility] Status: Signed Intake Vital Signs 01/06/25 13:05 Height 5 ft 7 in Weight: 180 lb 2 oz BMI 28.2 Intake Visit Reasons: BL WRISTS Chief Complaint: Bilateral Wrist Pain Allergies No Known Allergies Allergy (Verified 02/12/25 10:54) Medications ???Medication ???Instructions ???Recorded ???Confirmed ???Type fluticasone 232 mcg-salmeterol 14 1 puff IH Q12 07/24/19 02/12/25 R x mcg/actuation breath activated powdr levothyroxine 75 mcg tablet 75 mcg PO DAILY@0600 07/24/19 04/07/31 Rx multivitamin with folic acid 400 1 tab PO DAILY@0800 07/24/1902/12 Rx mcg tablet Handicap Placard See Rx Instructions .Route 12XD #1 08/28/19 02/12/25 Rx unit handicap placard See Rx Instructions .Route 9 02/12/25 Rx .COMPLEX #1 unit hydrochlorothiazide 12.5 mg tablet 12.5 mg PO QDAY 01/06/25 5 History losartan 50 mg tablet 50 mg PO QDAY 01/06/25 02/12/25 Hi story amoxicillin 500 mg tablet 500 mg PO ONCE #4 tabs 02/12/25 Rx Have you fallen in the past year?: No PFSH Medical History COPD (chronic obstructive pulmonary disease) Surgical History h/o left knee scope History of hysterectomy Family History Mother CVA (cerebral vascular accident) Brother Kidney disease Aneurysm Not sure what type, 1970 Social History Smoking Status: Former smoker pack-years: 57 alcohol intake: never HPI BL WRISTS Details: This documentation accurately reflects the service provided and the decisions made by me, Dr. Orion Diaz, DO 02/12/25 0806. Part of today???s visit was documented by Mandi ROBLERO, acting as scribe. TAMAR THOMPSON is a 84 year old F here today for bilateral hand EMG review. She denies nay changes. She does note that she needs a refill of the antibiotic as she is having some dental procedures done and had a knee replacement in 2019. 01/06/2025 visit:F here today for bilateral wrist pain. This has been bothering her for quite awhile but progressively gotten worse. She denies any pain in the wrists but complains of numbness and ting ling from the wrists to the fingers. She does wear braces at night for past year, and she states they help her for the most part at night. She states the numbness/tingling are in all of her fingers. She denies any prior surgeries, injections. Patient is RHD. She does see a chiropractor for her neck but has not had any surgery. she is concerned if she does have carpal tunnel release surgery that afterwards she will need to use a walker for her balance. Plan:Patient has had ongoing carpal tunnel symptoms for over a year she does get some benefit from night bracing but her symptoms have progressively worsened she is also complaining of weakness at this point I would recommend EMG nerve conduction study bilateral upper extremity. explained that if surgery is needed for carpal tunnel release then she would get one hand/wrist done at one time. We could use a wrist brace to help with the use of the walker if needed postoperatively once she has the EMG is done she should come back here in the office to go over the results and further discuss treatment options. Follow up after the EMG test is done or sooner if pain, swelling, numbness or associated symptoms, or concerns develop. All questions answered. Patient in agreement of plan. Ortho Exam General General: Yes no acute distress Neurologic: Yes alert and Yes oriented x3 Psychologic: Yes reasonable and appropriate Right Wrist/Hand Skin/Wound: No Swelling, No Ecchymosis, Yes nail intact and Yes capillary refill normal WRIST: possible early thenar and hypothenar atrophy mild flexion contracture of PIP joint of index finger Intact flexor and extensor tendons full digit flexion full supination full pronation wrist EXT 60 wrist FLEX 50 - Tinel's - Tinel's at elbow - Direct compression and hyperflexion of elbow Left Wrist/Hand Skin/Wound: Yes CDI, No Swelling, No Ecchymosis, Yes capillary refill normal and No erythema WRIST: possible early thenar and hypothenar atrophy mild flexion contracture of PIP joint of index finger Intact flexor and extensor tendons full digit flexion 75 deg supination full pronation wrist EXT 60 wrist FLEX 50 - Tinel's - Tinel's at elbow - Direct compression and hyperflexion of (more content not included)... [facility] NCS and/or EMG Patienton NCS and/or EMG Patient [facility] Pulmonary Services/Neurology [address] [place] [address] MR#: [id number] Acct: [id number] Name: TAMAR THOMPSON Rep #: [id number] : 1940 84 From: Angel Escobar MD Referring Dr: Orion Diaz DO Status: REG CLI Location: [facility] Date: 02/05/25 Sex: F C NCS and/or EMG Patient Report Ordering Doctor: Orion Diaz DATE OF SERVICE: 02/05/25 Tamar presents numbness and tingling in both hands, progressively worsening over the past year. Electrodiagnostic findings: Median motor nerve demonstrates prolonged latency bilaterally with reduced amplitude and reduced conduction velocity. Ulnar motor response is within normal limits bilaterally. Normal median and ulnar F???waves. Absent median sensory latency at the wrist bilaterally. Needle EMG testing was performed upper limbs. All muscles tested showed no evidence of denervation with normal motor unit action potentials. Electrodiagnostic impression: This is an abnormal study in the upper limbs 4 1 electrodiagnostic findings suggestive of bilateral median mononeuropathy. This consistent with a moderate to advanced bilateral carpal tunnel syndrome. Multi Select Codes Neurology Neurology Interp Codes: 80743-62 Musc test done w/n test comp (interp) (2) and 71273-51 Nrv cndj test 11-12 studies (interp) 02/05/25 1300 Date Angel Escobar MD CC: Dr. Katherin Aguirre MD; Dr. Angel Escobar MD; Dr. Orion Diaz DO Date Dictated: 02/05/251257 Date Transcribed: 02/05/251257 Acoustical Installer: ZULMA Signed [facility] Orthopedic Visit Reporton Orthopedic Visit Report [facility] [address] [place] [address] [address] [place] [address] OFFICE VISIT Date of Service: 01/06/25 MR#: [id number] Acct: [id number] Name: TAMAR THOMPSON Rep #: [id number] : 1940 Provider: Dr. Orion martino DO Age/Sex: 84/F Location: [facility] Status: Signed Intake Vital Signs 01/06/25 13:05 Height 5 ft 7 in Weight: 180 lb 2 oz BMI 28.2 Intake Visit Reasons: BILATERAL WRISTS Chief Complaint: Bilateral Wrist Pain Accompanied by: Self Is patient in pain?: Yes Allergies No Known Allergies Allergy (Verified 01/06/25 13:07) Medications ???Medication ???Instructions ???Recorded ???Confirmed ???Type fluticasone 232 mcg-salmeterol 14 1 puff IH Q12 07/24/19 01/06/25 R x mcg/actuation breath activated powdr levothyroxine 75 mcg tablet 75 mcg PO DAILY@59907/24/19 03/01/28 Rx multivitamin with folic acid 400 1 tab PO DAILY@79907/24/1901/06 Rx mcg tablet Handicap Placard See Rx Instructions .Route 12XD #1 08/28/19 Rx unit handicap placard See Rx Instructions .Route 9 Rx .COMPLEX #1 unit amoxicillin 500 mg capsule 500 mg PO ONCE #4 caps 04/22/21 Rx amoxicillin 500 mg tablet 500 mg PO ONCE #4 tabs 07/14/21 Rx amoxicillin 500 mg tablet 500 mg PO ONCE #4 tabs 10/03/22 03 /03/25 Rx amoxicillin 500 mg tablet 2,000 mg (4 x 500 mg) PO ONCE #4 0 03/15/23 01/06/25 Rx tabs amoxicillin 500 mg tablet 2,000 mg (4 x 500 mg) PO ONCE #4 0 12/04/23 01/06/25 Rx tabs hydrochlorothiazide 12.5 mg tablet 12.5 mg PO QDAY 01/06/25 5 History losartan 50 mg tablet 50 mg PO QDAY 01/06/25 01/06/25 Hi story Have you fallen in the past year?: No PFSH Medical History COPD (chronic obstructive pulmonary disease) Surgical History h/o left knee scope History of hysterectomy Family History Mother CVA (cerebral vascular accident) Brother Kidney disease Aneurysm Not sure what type, 1969 Social History Smoking Status: Former smoker pack-years: 57 alcohol intake: never HPI BILATERAL WRISTS Details: This documentation accurately reflects the service provided and the decisions made by me, Dr. Orion Diaz, DO 01/06/25 0752. Part of today???s visit was documented by Brianne Monsalve ATC, acting as scribe. TAMAR THOMPSON is a 84 year old F here today for bilateral wrist pain. This has been bothering her for quite awhile but progressively gotten worse. She denies any pain in the wrists but complains of numbness and tingling from the wrists to the fingers. She does wear braces at night for past year, and she states they help her for the most part at night. She states the numbness/tingling are in all of her fingers. She denies any prior surgeries, injections. Patient is RHD. She does see a chiropractor for her neck but has not had any surgery. she is concerned if she does have carpal tunnel release surgery that afterwards she will need to use a walker for her balance. Ortho Exam General General: Yes no acute distress and Yes well groomed Neurologic: Yes alert and Yes oriented x3 Psychologic: Yes reasonable and appropriate Right Wrist/Hand Skin/Wound: Yes CDI, No Swelling, No Ecchymosis, Yes nail intact and Yes capillary refill normal WRIST: possible early thenar and hypothenar atrophy mild flexion contracture of PIP joint of index finger Intact flexor and extensor tendons full digit flexion full supination full pronation wrist EXT 60 wrist FLEX 50 - Tinel's - Tinel's at elbow - Direct compression and hyperflexion of elbow Left Wrist/Hand Skin/Wound: Yes CDI, No Swelling, No Ecchymosis, Yes capillary refill normal and No erythema WRIST: possible early thenar and hypothenar atrophy mild flexion contracture of PIP joint of index finger Intact flexor and extensor tendons full digit flexion 75 deg supination full pronation wrist EXT 60 wrist FLEX 50 - Tinel's - Tinel's at elbow - Direct compression and hyperflexion of elbow Coding Level of Care Code Off vis,est,level 4 Diagnoses Carpal tunnel syndrome, bilateral G56.03 Assessment and Plan Assessment and Plan (1) Carpal tunnel syndrome, bilateral: Status: Acute Plan Patient has had ongoing carpal tunnel symptoms for over a year she does get some benefit from night bracing but her symptoms have progressively worsened she is also complaining of weakness at this point I would recommend EMG nerve conduction study bilateral upper extremity. explained that if surgery is needed for carpal tunnel release then she would get one hand/wrist don (more content not included)... Normal [facility] Basophil percentageOrdered B y: Katherin Aguirre on 03-12-2024 Cholesterol [Mass/Vol] 149 mg/dL <200 [facility] Comment on above: <200 mg/dL Desirable 200-240 mg/dL Borderline >240 mg/dL High Risk Triglyceride [Mass/Vol] 134 mg/dL <199 [facility] Comment on above: The drugs N-Acetylcy steine and Metamizole may falsely depress this assay.Serum Triglycerides Reference Interval Normal <150 mg/dL Borderline high 150 - 199 mg/dL High 200 - 499 mg/dL Very High > or = 500 mg/dL Laboratory - Chemistry and C hemistry - challengeOrdered By: Katherin Aguirre on 03-12-2024 Cholesterol in HDL [Mass/Vol] 54 mg/dL >40 [facility] Comment on above: The drugs N-Acetylcy steine and Metamizole may falsely depress this assay. Reference Range HDL <40 mg/dL Low HDL Cholesterol HDL >or= 60 mg/dL High HDL Cholesterol Cholesterol in LDL [Mass/Vol] 68 mg/dL 0-130 [facility] No Panel InformationOrdered By: Katherin Aguirre on 03-12-2024 Urine Microalbumin/Creatini ne Ratio 4.2 mg/g CRE <30 [facility] VLDL Cholesterol 27 mg/dL 5-40 [facility] Serum or plasma thyroid stim ulating hormone (TSH) measurement (units/volume)Ordered By: Katherin Aguirre on 03-12-2024 TSH Qn 3.22 uIU/mL 0.358-3.74 [facility] Serum or plasma thyroxine (T 4) measurement (mass/volume)Ordered By: Katherin Aguirre on 03-12-2024 T4 [Mass/Vol] 13.0 ug/dL 4.8-13.9 [facility] Thin prep Papanicolaou smear with manual screeningOrdered By: Katherin Aguirre on 03-12-2024 Protein (U) [Mass/Vol] 11.3 mg/dL 0.0-11.8 [facility] Thin prep Papanicolaou smear with manual screening 5.9 mg/L NO RANGE EST. [facility] Urine creatinine measurement (mass/volume)Ordered By: Katherin Aguirre on 03-12-2024 Creatinine (U) [Mass/Vol] 139.00 mg/dL NO RANGE EST. [facility] Urine protein/creatinine mas s ratioOrdered By: Katherin Aguirre on 03-12-2024 Protein/Creatinine (U) [Mass ratio] 81 mg/g CRE 0-200 [facility] Basophil percentageOrdered B y: Katherin Aguirre on 07-18-2023 Chloride [Moles/Vol] 106 mmol/L 98-107 [facility] Glucose [Mass/Vol] 146 mg/dL 74-106 [facility] Comment on above: Fasting Glucose resu lt greater than or equal to 126 mg/dL suggests DIABETES MELLITUS per A.D.A. criteria. Potassium [Moles/Vol] 3.7 mmol/L 3.5-5.1 [facility] Sodium [Moles/Vol] 141 mmol/L 136-145 [facility] Erythrocyte sedimentation ra teOrdered By: Katherin Aguirre on 07-18-2023 ESR (Bld) [Velocity] 12 mm/h 0-30 [facility] Laboratory - Chemistry and C hemistry - challengeOrdered By: Katherin Aguirre on 07-18-2023 CO2 [Moles/Vol] 29.0 mmol/L 21.0-32.0 [facility] Urea nitrogen/Creatinine [Mass ratio] 13.7 mg/mg 10-20 [facility] No Panel InformationOrdered By: Katherin Aguirre on 07-18-2023 Estimated GFR (MDRD) Amer 44 mL/min >60 [facility] Comment on above: GFR Calc Estimated GFR (MDRD) Non-Af Amer 36 mL/min >60 [facility] Comment on above: Non- GFR Calc Serum or plasma calcium sophy urement (mass/volume)Ordered By: Katherin Aguirre on 07-18-2023 Calcium [Mass/Vol] 8.9 mg/dL 8.5-10.1 [facility] Serum or plasma creatinine m easurement (mass/volume)Ordered By: Katherin Aguirre on 07-18-2023 Creatinine [Mass/Vol] 1.46 mg/dL 0.55-1.02 [facility] Comment on above: The validity of the calculated GFR & GFRAA in patients over 70 years has not been determined. Clinical correlation is essential. Serum or plasma urea nitroge n measurement (mass/volume)Ordered By: Katherin Aguirre on 07-18-2023 Urea nitrogen [Mass/Vol] 20 mg/dL 7-18 [facility] Serum or plasma uric acid me asurement (mass/volume)Ordered By: Katherin Aguirre on 07-18-2023 Urate [Mass/Vol] 9.8 mg/dL 2.6-6.0 [facility] Comment on above: The drugs N-Acetylcy steine and Metamizole may falsely depress this assay. Thin prep Papanicolaou smear with manual screeningOrdered By: Katherin Aguirre on 07-18-2023 Thin prep Papanicolaou smear with manual screening 6 5-15 [facility] Gram stain for investigation of transfusion reactionOrdered By: Katherin Aguirre on 05-08-2023 Microscopic observation Gram stain Nom (Unsp spec) [facility] Routine wound cultureOrdered By: Katherin Aguirre on 05-08-2023 Bacteria identified Cx Nom (Wound) No growth aerobically. [facility] No Panel Informationon 08-08 Urine Microalbumin/Creatini ne Ratio 6.3 mg/g CRE <30 [facility] Work Phone: Thin prep Papanicolaou smear with manual screeningon 08-08-2022 Thin prep Papanicolaou smear with manual screening 7.6 mg/L NO RANGE EST. [facility] Work Phone: Urine creatinine measurement (mass/volume)on 08-08-2022 Creatinine (U) [Mass/Vol] 121.00 mg/dL NO RANGE EST. [facility] Work Phone: Absolute lymphocyte counton 08-04-2022 Lymphocytes Auto (Unsp spec) [#/Vol] 1.90 10*3/uL 0.83-4.51 [facility] Work Phone: Basophil percentageon 2021 Basophils/100 WBC (Bld) 0.5 % 0-1 [facility] Work Phone: Chloride [Moles/Vol] 104 mmol/L 98-107 [facility] Work Phone: Cholesterol [Mass/Vol] 181 mg/dL <200 [facility] Work Phone: Comment on above: <200 mg/dL Desirable 200-240 mg/dL Borderline >240 mg/dL High Risk Eosinophils/100 WBC (Bld) 2.2 % 0-5 [facility] Work Phone: Glucose [Mass/Vol] 106 mg/dL 74-106 [facility] Work Phone: Comment on above: Fasting Glucose resu lt from 100 to 125 mg/dL suggests IMPAIRED HOMEOSTASIS per A.D.A. criteria. Neutrophils (Bld) [#/Vol] 6.5 10*3/uL 2.0-7.7 [facility] Work Phone: Neutrophils/100 WBC (Bld) 68.5 % 47-70 [facility] Work Phone: Potassium [Moles/Vol] 3.8 mmol[facility]L [facility]: Sodium [Moles/Vol] 142 mmol/L 136-145 [facility] Work Phone: Triglyceride [Mass/Vol] 161 mg/dL <199 [facility] Work Phone: Comment on above: The drugs N-Acetylcy steine and Metamizole may falsely depress this assay.Serum Triglycerides Reference Interval Normal <150 mg/dL Borderline high 150 - 199 mg/dL High 200 - 499 mg/dL Very High > or = 500 mg/dL WBC (Bld) [#/Vol] 9.5 10*3/uL 4.4-11.0 [facility] Work Phone: Blood erythrocytes count (nu mber/volume)on 08-04-2022 RBC (Bld) [#/Vol] 4.84 10*6/uL 4.2-5.4 [facility] Work Phone: Blood hemoglobin measurement (mass/volume)on 08-04-2022 Hemoglobin (Bld) [Mass/Vol] 14.5 g/dL 12.0-15.0 [facility] Work Phone: Blood lymphocytes/100 leukoc yteson 08-04-2022 Lymphocytes/100 WBC (Bld) 20.0 % 19-41 [facility] Work Phone: Blood monocytes/100 leukocyt eson 08-04-2022 Monocytes/100 WBC (Bld) 8.5 % 0-10 [facility] Work Phone: Blood platelet mean volumeon 08-04-2022 Platelet mean volume (Bld) [Entitic vol] 11.8 fL 6.2-12.0 [facility] Work Phone: Determination of erythrocyte mean corpuscular volume (MCV)on 08-04-2022 MCV (RBC) [Entitic vol] 96.5 fL 81-99 [facility] Work Phone: Hematocrit Auto (Bld) [Volum e fraction]on 08-04-2022 Hematocrit (Bld) [Volume fraction] 46.7 % 37-47 [facility] Work Phone: Laboratory - Chemistry and C hemistry - challengeon 08-04-2022 CO2 [Moles/Vol] 29.0 mmol/L 21.0-32.0 [facility] Work Phone: T4 [Mass/Vol] 14.7 ug/dL 4.8-13.9 [facility] Work Phone: Urea nitrogen/Creatinine [Mass ratio] 13.1 mg/mg 10-20 [facility] Work Phone: Laboratory - Hematology and Cell countson 08-04-2022 Erythrocyte distribution width (RBC) [Entitic vol] 45.3 fL 35.1-43.9 [facility] Work Phone: Erythrocyte distribution width (RBC) [Ratio] 12.7 % 11.6-14.6 [facility] Work Phone: Immature granulocytes/100 WBC (Bld) 0.300 % 0.0-0.9 [facility] Work Phone: Comment on above: IG% - Immature Granu locytes (promyelocytes, myelocytes and metamyelocytes) > 1% indicates that a LEFT SHIFT is Present. MCH (RBC) [Entitic mass] 30.0 pg 27.0-32.0 [facility] Work Phone: Nucleated RBC/100 WBC (Bld) [Ratio] 0 % 0-5 [facility] Work Phone: MCHC Auto (RBC) [Mass/Vol]on 08-04-2022 MCHC (RBC) [Mass/Vol] 31.0 g/dL 32-[facility] Work [facility]: No Panel Informationon 08-04 Estimated GFR (MDRD) Amer 42 mL/min >60 [facility] Work Phone: Comment on above: GFR Calc Estimated GFR (MDRD) Non-Af Amer 35 mL/min >60 [facility] Work Phone: Comment on above: Non- GFR Calc Thyroid Stimulating Hormone (TSH) 2.43 uIU/mL 0.358-3.74 [facility] Work Phone: Platelets bldon 08-04-2022 Platelets (Bld) [#/Vol] 231 10*3/uL 150-450 [facility] Work Phone: Serum or plasma calcium sophy urement (mass/volume)on 08-04-2022 Calcium [Mass/Vol] 9.3 mg/dL 8.5-10.1 [facility] Work Phone: Serum or plasma cholesterol in HDL measurement (mass/volume)on 08-04-2022 Cholesterol in HDL [Mass/Vol] 54 mg/dL >40 [facility] Work Phone: Comment on above: The drugs N-Acetylcy steine and Metamizole may falsely depress this assay. Reference Range HDL <40 mg/dL Low HDL Cholesterol HDL >or= 60 mg/dL High HDL Cholesterol Serum or plasma cholesterol in VLDL measurement (mass/volume)on 08-04-2022 Cholesterol in VLDL [Mass/Vol] 32 mg/dL 5-40 [facility] Work Phone: Serum or plasma creatinine m easurement (mass/volume)on 08-04-2022 Creatinine [Mass/Vol] 1.53 mg/dL 0.55-1.02 [facility] Work Phone: Comment on above: The validity of the calculated GFR & GFRAA in patients over 70 years has not been determined. Clinical correlation is essential. Serum or plasma low density lipoprotein (LDL) cholesterol measurement (mass/volume)on 08-04-2022 Cholesterol in LDL [Mass/Vol] 95 mg/dL 0-130 [facility] Work Phone: Serum or plasma urea nitroge n measurement (mass/volume)on 08-04-2022 Urea nitrogen [Mass/Vol] 20 mg/dL 7-18 [facility] Work Phone: Thin prep Papanicolaou smear with manual screeningon 08-04-2022 Thin prep Papanicolaou smear with manual screening 9 03-20 [facility] Work Phone: Office Visiton 07-19-2017 Dietary management education, guidance, and counseling (procedure) yes Invalid Interpretation Code [facility] Work Phone: Documentation of current medications (procedure) Done Invalid Interpretation Code [facility] Work Phone: Tobacco use [facility] Former smoker Invalid Interpretation Code [facility] Work Phone: Office Visiton 12-08-2014 Dietary management education, guidance, and counseling (procedure) yes Invalid Interpretation Code [facility] Work Phone: Documentation of current medications (procedure) Done Invalid Interpretation Code [facility] Work Phone: Smoking cessation education (procedure) yes Invalid Interpretation Code [facility] Work Phone: Tobacco use HS Former smoker Invalid Interpretation Code [facility] Work Phone: Vital Signs Date Time Vital Sign Value Performing Clinician Facility 06-17-2025 10:36-0400 Body height 170.[address] Katherin Aguirre MD Work Phone: [facility] 02-18-2025 08:31-0400 Body temperature 98.2 [degF] Dr. Katherin Aguirre MD Work Phone: [facility] 02-18-2025 08:31-0400 Diastolic blood pressure 68 mm[Hg] Dr. Katherin Aguirre MD Work Phone: [facility] 02-18-2025 08:31-0400 Heart rate 84 /min Dr. Katherin Aguirre MD Work Phone: [facility] 02-18-2025 08:31-0400 Respiratory rate 16 /min Dr. Katherin Aguirre MD Work Phone: [facility] 02-18-2025 08:31-0400 SaO2% (BldA) [Mass fraction] 94 % Dr. Katherin Aguirre MD Work Phone: [facility] 02-18-2025 08:31-0400 Systolic blood pressure 116 mm[Hg] Dr. Katherin Aguirre MD Work Phone: [facility] 02-18-2025 08:05-0400 Inhaled oxygen flow rate 4 L/min Dr. Katherin Aguirre MD Work Phone: [facility] 02-18-2025 06:37-0400 Body height 170.[address] Katherin Aguirre MD Work Phone: [facility] 02-18-2025 06:37-0400 Body mass index (BMI) [Ratio] 27.8 kg/m2 Dr. Katherin Aguirre MD Work Phone: [facility] 02-18-2025 06:37-0400 Body weight 80.[address] Katherin Aguirre MD Work Phone: [facility] 01-06-2025 13:05-0500 Body height 170.[address] Katherin Aguirre MD Work Phone: [facility] 01-06-2025 13:05-0500 Body mass index (BMI) [Ratio] 28.2 kg/m2 Dr. Katherin Aguirre MD Work Phone: [facility] 01-06-2025 13:05-0500 Body weight 81.[address] Katherin Aguirre MD Work Phone: [facility] 11-17-2014 14:38-0500 BMI (Body Mass Index) 30.86 kg/m2 [facility] Work Phone: 11-17-2014 14:38-0500 Weight 90.72 kg [facility] Work Phone: 10-15-2014 11:03-0500 BP Diastolic 97 mm[Hg] [facility] Work Phone: 10-15-2014 11:03-0500 BP Systolic 151 mm[Hg] [facility] Work Phone: 10-15-2014 11:03-0500 Pulse (Heart Rate) 85 /min [facility] Work Phone: 08-26-2014 10:15-0400 Height 171.45 cm [facility] Work Phone: Encounters Encounter Date Encounter Type Care Provider Facility Start: 07-22-2025 ambulatory [facility] Facility :[facility] Start: 06-25-2025 End: 06-25-[address] Orion Diaz DO [facility] Work Phone: Start: 06-25-2025 End: 06-25-[address] Katherin Aguirre MD Work Phone: [facility] Start: 03-03-2025 End: 03-03-[address] Orion iDaz DO [facility] Work Phone: Start: 03-03-2025 End: 03-03-2025 ambulatory Katherin Aguirre Facility:[facility] Start: 02-18-2025 ambulatory [facility] Facility :[facility] Start: 02-18-2025 Non-patient / Non-visit Dr. Orion lomax DO [facility] Start: 02-18-2025 End: 02-18-2025 Admission to same day surgery center Dr. Orion Diaz DO [facility] Start: 02-18-2025 End: 02-18-[address] Katherin Aguirre MD Work Phone: [facility] Work Phone: Start: 02-12-2025 End: 02-12-[address] Orion Diaz DO [facility] Work Phone: Start: 02-12-2025 End: 02-12-2025 ambulatory Katherin Aguirre Facility:[facility] Start: 02-05-2025 ambulatory Orion Diaz Facility :[facility] Start: 02-05-2025 Non-patient / Non-visit Dr. Agnel velasquez MD -[facility] Start: 02-05-2025 End: 02-05-[address] Katherin Aguirre MD Work Phone: [facility] Work Phone: Start: 02-05-2025 End: 02-05-[address] Orion Diaz DO -Pulmonary Services/Neurology Work Phone: Start: 02-05-2025 End: 02-05-2025 [facility] Start: 01-06-2025 End: 01-06-[address] Orion Diaz DO [facility] Work Phone: Start: 01-06-2025 End: 01-06-2025 ambulatory Katherin Aguirre Facility:[facility] Start: 03-12-2024 End: 03-12-2024 ambulatory [facility] Work Phone: Start: 03-12-2024 End: 03-12-2024 Patient encounter procedure [facility] Start: 07-18-2023 End: 07-18-2023 ambulatory [facility] Work Phone: Start: 07-18-2023 End: 07-18-2023 Patient encounter procedure [facility] Start: 05-08-2023 End: 05-08-2023 ambulatory [facility] Work Phone: Start: 05-08-2023 End: 05-08-2023 Patient encounter procedure [facility] Work Phone: Start: 08-11-2022 Non-patient / Non-visit Dr. Tyree Aguirre Work Phone: [facility] Start: 08-11-[address] Katherin Aguirre Work Phone: [facility] Start: 08-08-2022 End: 08-08-[address] Katherin Aguirre Work Phone: [facility] Work Phone: Start: 08-08-2022 End: 08-08-2022 Patient encounter procedure [facility] Start: 08-04-2022 End: 08-04-2022 ambulatory [facility] Work Phone: Start: 08-04-2022 End: 08-04-2022 Patient encounter procedure [facility] [place] Procedures Date Procedure Procedure Detail Performing Clinician Start: 02-18-2025 Decompression of med haseeb nerve Dr. Katherin Aguirre MD Work Phone: Start: 05-08-2023 Investigation of transfusion reaction Start: 05-08-2023 Microbial culture, routine Start: 08-04-2022 Plain chest X-ray Start: 07-19-2017 End: 07-31-2017 Drain/inject, joint/bursa Alexey Prieto Work Phone: Plan of Treatment Date Care Activity Detail Author Start: 02-18-2025 Catheterization of vein [facility] Start: 02-18-2025 Following clinical pathway protocol [facility] Start: 02-18-2025 Patient discharge [facility] Start: 02-18-2025 Procedure discontinued [facility] Start: 02-18-2025 Taking patient vital signs [facility] Start: 02-18-2025 Vital signs measurements [facility] Start: 02-18-2025 [facility] Start: 02-18-2025 Medication education [facility] Start: 07-19-2017 End: 07-19-2017 Appointment Appointment [facility] Work Phone: Start: 11-17-2014 End: 11-19-2014 Mri lumbar spine w/o dye MRI Lumbar Spine [facility] Work Phone: Start: 09-03-2014 End: 09-03-2014 X-ray exam l-s spine bending X-Ray, Spine, Lumbar, complete with bending views [facility] Work Phone: Patient referral [facility] Work Phone: Payers Date Payer Category Payer Unknown [id number] 2024 Self-pay [id number] 2013 Private Health Insurance [employer] L [id number] Medicare MEDICARE PART A B [id number] Unknown [id number] Unknown [id number] Unknown [id number] Unknown [id number] Unknown [id number] Unknown [id number] Unknown [id number] Unknown [id number] Unknown [id number] Social History Date Type Detail Facility Start: 03-01-2021 Tobacco smoking status NHIS Unknown if ever smoked [facility] Start: 07-11-2019 None [facility] Start: 07-11-2019 [facility] Start: 07-11-2019 Cigarettes [facility] Start: 1940 Sex Assigned At Female [facility] Start: 03-01-2021 End: 06-17-2025 Tobacco smoking status NHIS Ex-smoker (finding) [facility] Start: 02-11-2025 End: 02-18-2025 Sex Female (finding) [facility] NEGATED: Highlighted row Not [facility] Medical Equipment Procedure Code Equipment Code Equipment Origin al Text Equipment Identifier Dates Total knee replacement ASYMMETRIC PATELLA FDA Start: 07-09-2019 Total knee replacement CEMENT,HV SIMPLEX FDA Start: 07-09-2019 Total knee replacement CEMENT,HV SIMPLEX FDA Start: 07-09-2019 Total knee replacement CRUCIATE RETAINING FEMORAL FDA Start: 07-09-2019 Total knee replacement TIBIAL BASEPLATE FDA Start: 07-09-2019 Total knee replacement TIBIAL BEARING INSERT CS FDA Start: 07-09-2019 Total knee replacement ASYMMETRIC PATELLA FDA Start: 07-09-2019 Total knee replacement CEMENT,HV SIMPLEX FDA Start: 07-09-2019 Total knee replacement CEMENT,HV SIMPLEX FDA Start: 07-09-2019 Total knee replacement CRUCIATE RETAINING FEMORAL FDA Start: 07-09-2019 Total knee replacement TIBIAL BASEPLATE FDA Start: 07-09-2019 Total knee replacement TIBIAL BEARING INSERT CS FDA Start: 07-09-2019 Total knee replacement ASYMMETRIC PATELLA FDA Start: 07-09-2019 Total knee replacement CEMENT,HV SIMPLEX FDA Start: 07-09-2019 Total knee replacement CEMENT,HV SIMPLEX FDA Start: 07-09-2019 Total knee replacement CRUCIATE RETAINING FEMORAL FDA Start: 07-09-2019 Total knee replacement TIBIAL BASEPLATE FDA Start: 07-09-2019 Total knee replacement TIBIAL BEARING INSERT CS FDA Start: 07-09-2019 Total knee replacement ASYMMETRIC PATELLA FDA Start: 07-09-2019 Total knee replacement CEMENT,HV SIMPLEX FDA Start: 07-09-2019 Total knee replacement CEMENT,HV SIMPLEX FDA Start: 07-09-2019 Total knee replacement CRUCIATE RETAINING FEMORAL FDA Start: 07-09-2019 Total knee replacement TIBIAL BASEPLATE FDA Start: 07-09-2019 Total knee replacement TIBIAL BEARING INSERT CS FDA Start: 07-09-2019 Total knee replacement ASYMMETRIC PATELLA FDA Start: 07-09-2019 Total knee replacement CEMENT,HV SIMPLEX FDA Start: 07-09-2019 Total knee replacement CEMENT,HV SIMPLEX FDA Start: 07-09-2019 Total knee replacement CRUCIATE RETAINING FEMORAL FDA Start: 07-09-2019 Total knee replacement TIBIAL BASEPLATE FDA Start: 07-09-2019 Total knee replacement TIBIAL BEARING INSERT CS FDA Start: 07-09-2019 Total knee replacement ASYMMETRIC PATELLA FDA Start: 07-09-2019 Total knee replacement CEMENT,HV SIMPLEX FDA Start: 07-09-2019 Total knee replacement CEMENT,HV SIMPLEX FDA Start: 07-09-2019 Total knee replacement CRUCIATE RETAINING FEMORAL FDA Start: 07-09-2019 Total knee replacement TIBIAL BASEPLATE FDA Start: 07-09-2019 Total knee replacement TIBIAL BEARING INSERT CS FDA Start: 07-09-2019 Total knee replacement ASYMMETRIC PATELLA FDA Start: 07-09-2019 Total knee replacement CEMENT,HV SIMPLEX FDA Start: 07-09-2019 Total knee replacement CEMENT,HV SIMPLEX FDA Start: 07-09-2019 Total knee replacement CRUCIATE RETAINING FEMORAL FDA Start: 07-09-2019 Total knee replacement TIBIAL BASEPLATE FDA Start: 07-09-2019 Total knee replacement TIBIAL BEARING INSERT CS FDA Start: 07-09-2019 Total knee replacement ASYMMETRIC PATELLA FDA Start: 07-09-2019 Total knee replacement CEMENT,HV SIMPLEX FDA Start: 07-09-2019 Total knee replacement CEMENT,HV SIMPLEX FDA Start: 07-09-2019 Total knee replacement CRUCIATE RETAINING FEMORAL FDA Start: 07-09-2019 Total knee replacement TIBIAL BASEPLATE FDA Start: 07-09-2019 Total knee replacement TIBIAL BEARING INSERT CS FDA Start: 07-09-2019 Goals Date Patient Goal Desired Activity /State Mental Status Date Assessment Result Facility 02-18-2025 Cognitive function Voice/Name [facility] Work Phone: Clinical Notes 2024 to 03-03-2025 Note Date & Type Note Facility 03-03-2025 Evaluation note Diagnosis Onset Date Resolution Orthopedic aftercare acute Apri l 2024 11:11am [facility] Work Phone: [phone]) 409-781604-15-2025 Consult note [facility] Medical Records Department [address] [place] [address] Anesthesia Postop Eval II 02/18/25 0854 MR#: [id number] Acct: [id number] Name: TAMAR THOMPSON Rep #:[id number] : 1940 84 From: Arslan Berman MD PCP: Dr. Katherin Aguirre MD Status:REG SDC Y Race: C Location: [facility]03- Anesthesia Postop Eval I Sum Postop Eval Completion status Anesthesia document: Postop Eval 1 completed: Yes Anesthesia Postop Eval I Summary Anesthesia Postop Eval I Summary: Anesthesia Postop Eval I: Assessment Summary Airway patent Yes 02/18/25 08:05 ENTRY LEVEL MARKETING REPRESENTATIVE.JBLOU Spontaneous unlabored Yes 02/18/25 08:05 ENTRY LEVEL MARKETING REPRESENTATIVE.JBLOU respirations Mental status Awake 02/18/25 08:05 ENTRY LEVEL MARKETING REPRESENTATIVE.JBLOU nausea No 02/18/25 08:05 ENTRY LEVEL MARKETING REPRESENTATIVE.JBLOU Vomiting No 02/18/25 08:05 ENTRY LEVEL MARKETING REPRESENTATIVE.JBLOU Anesthesia Postop Eval I: Fluid Summary Crystalloid volume administer 500 02/18/25 08:05 ENTRY LEVEL MARKETING REPRESENTATIVE.JBLOU (ml) Colloids volume administered ( ml) Blood Product volume administered (ml) Total IV fluid infused 500 02/18/25 08:05 ENTRY LEVEL MARKETING REPRESENTATIVE.JBLOU Anesthesia Postop Eval I: Summary Notes Anesthesia Complication No 02/18/25 08:05 ENTRY LEVEL MARKETING REPRESENTATIVE.JBLOU Anesthesia Complication Comment: Post-operative progress note Anesthesia: Postop Eval II Evaluation Mental status: Awake and Calm Pain Level: 1 nausea: No Vomiting: No Complications Anesthesia Complication: No 02/18/25 0854 wes PORTILLO> Date _ Arslan Berman MD Cosigner Signature: Date CC: ~ Signed [facility]04-15-2025 History and physical note Author Orion Diaz [facility] Note Date/Time February 18, 2025 7:1 1am [facility] Medical Records Department [address] [place] [address] History & Physical Exam 02/18/25 0710 MR#: [id number] Acct: [id number] Name: TAMAR THOMPSON Rep #:[id number] : 1940 84 From: Orion Diaz DO PCP: Dr. Katherin Aguirre MD Status:[facility] Location: [address] History and Physical Date of Admission: 02/18/25 [facility] [address] [facility] [address] [place] [address] OFFICE VISIT Date of Service: 02/12/25 MR#: [id number] Acct: [id number] Name: TAMAR THOMPSON Rep #: [id number] : 1940 Provider: Dr. Orion Diaz DO Age/Sex: 84/F Location: [facility] Status: Signed Intake Vital Signs 01/06/2513:05 Height 5 ft 7 in Weight: 180 lb 2 oz BMI 28.2 Intake Visit Reasons: BL WRISTS Chief Complaint: Bilateral Wrist Pain Allergies No Known Allergies Allergy (Verified 02/12/25 10:54) Medications ?Medication ?Instructions ?Recorded ?Confirmed ?Type fluticasone 232 mcg-salmeterol 14 1 puff IH Q12 07/24/19 02/12/25 Rx mcg/actuation breath activated powdr levothyroxine 75 mcg tablet 75 mcg PO DAILY@0600 07/24/19 02/12/25 R x multivitamin with folic acid 400 1 tab PO DAILY@0800 07/24/19 02/12/25 Rx mcg tablet Handicap Placard See Rx Instructions .Route 12XD #1 08/28/19 02/12/25 Rx unit handicap placard See Rx Instructions .Route 09/06/19 02/12/25 Rx .COMPLEX #1 unit hydrochlorothiazide 12.5 mg tablet 12.5 mg PO QDAY 01/06/25 02/12/25 Histor y losartan 50 mg tablet 50 mg PO QDAY 01/06/25 02/12/25 History amoxicillin 500 mg tablet 500 mg PO ONCE #4 tabs 02/12/25 02/12/25 Rx Have you fallen in the past year?: No PFSH Medical History COPD (chronic obstructive pulmonary disease) Surgical History h/o left knee scope History of hysterectomy Family History Mother CVA (cerebral vascular accident)Brother Kidney disease Aneurysm Not sure what type, 1969 Social History Smoking Status: Former smoker pack-years: 57 alcohol intake: never HPI BL WRISTS Details: This documentation accurately reflects the service provided and the decisions made by me, Dr. Orion Diaz, DO 02/12/25 0806. Part of today?s visit was documented by Mandi ROBLERO, acting as scribe. TAMAR THOMPSON is a 84 year old F here today for bilateral hand EMG review. She denies nay changes. She does note that she needs a refill of the antibiotic as she is having some dental procedures done and had a knee replacement in 2019. 01/06/2025 visit:F here today for bilateral wrist pain. This has been bothering her for quite awhile but progressively gotten worse. She denies any pain in the wrists but complains of numbness and tingling from the wrists to the fingers. She does wear braces at night for past year, and she states they help her for the most part at night. She states the numbness/tingling are in all of her fingers. She denies any prior surgeries, injections. Patient is RHD. She does see a chiropractor for her neck but has not had any surgery. she is concerned if she does have carpal tunnel release surgery that afterwards she will need to use a walker for her balance. Plan:Patient has had ongoing carpal tunnel symptoms for over a year she does getsome benefit from night bracing but her symptoms have progressively worsened sheis also complaining of weakness at this point I would recommend EMG nerve conduction study bilateral upper extremity. explained that if surgery is needed for carpal tunnel release then she would get one hand/wrist done at one time. We could use a wrist brace to help with the use of the walker if needed postoperatively once she has the EMG is done she should come back here in the office togo over the results and further discuss treatment options. Follow up after the EMG test is done or sooner if pain, swelling, numbness or associated symptoms, or concerns develop. All questions answered. Patient in agreement of plan. Ortho Exam General General: Yes no acute distress Neurologic: Yes alert and Yes oriented x3 Psychologic: Yes reasonable and appropriate Right Wrist/Hand Skin/Wound: No Swelling, No Ecchymosis, Yes nail intact and Yes capillary refillnormal WRIST: possible early thenar and hypothenar atrophy mild flexion contracture of PIP joint of index finger Intact flexor and extensor tendons full digit flexion full supination full pronation wrist EXT 60 wrist FLEX 50 - Tinel's - Tinel's at elbow - Direct compression and hyperflexion of elbow Left Wrist/Hand Skin/Wound: Yes CDI, No Swelling, No Ecchymosis, Yes capillary refill normal andNo erythema WRIST: possible early thenar and hypothenar atrophy mild flexion contracture of PIP joint of index finger Intact flexor and extensor tendons full digit flexion 75 deg supination full pronation wrist EXT 60 wrist FLEX 50 - Tinel's - Tinel's at elbow - Direct compression and hyperflexion of elbow Head: Normocephalic Atraumatic Chest: symmetrical rise, non-labored breathing, no audible wheeze Abdomen: no guarding, non-rigid Supplemental Info 02/05/2025 EMG bilateral upper extremities: Electrodiagnostic impression: This is an abnormal study in the upper limbs 4 1 electrodiagnostic findings suggestive of bilateral median mononeuropathy. This consistent with a moderate to advancedbilateral carpal tunnel syndrome. Coding Level of Care Code Off vis,est,level 4 Diagnoses Carpal tunnel syndrome, bilateral G56.03 Assessment and Plan Assessment and Plan (1) Carpal tunnel syndrome, bilateral: Status: Acute Medications: New amoxicillin take 4 tabs within 1 hr prior to dental procedure. 500 mg PO ONCE 4 tabs 0RF Plan Patient is here today for EMG review of her bilateral hands. I explained to patient that she does have severe carpal tunnel syndrome of both hands. We spoke about surgical versus nonsurgical intervention. I can't promise that the nerve will come back after the surgery also due to the severity of her carpal tunnel. As far as her using the walker I would recommend she use a platform walker so she puts more of her weight through her forearm and it would reduce the chance of the incision opening up and dehiscing. She will have restrictions of .5lbs the first two weeks then the third week she will have a 5lb restriction. Patient wishes to proceed with a right open carpal tunnel release for a projected surgery date of 02/18/25. Risks include but are not limited to bleeding infection nerve artery tissue damage need for further surgery continuedpain continued symptoms incisional hypersensitivity and postoperative restrictions and expected course . I will also provide patient with some exercises to do after surgery to help with her ROM. Clinical Quality Measures Falls Risk Screening/Assistive Devices Have you fallen in the past year?: No 02/12/25 1204 <Electronically signed by Orion Diaz DO> Date Orion Diaz DO I have examined the patient and the H&P has been reviewed. There are no clinicalchanges since date of exam. 02/18/25 0711 <Electronically signed by Orion Diaz DO> Cosigner Signature (if applicable): CC: Dr. Katherin Aguirre MD; Dr. Orion Diaz DO~ Signed [facility] Work Phone: 1(514) 910-897604-15-2025 Consult note Author [facility] Note Date/Time February 18, 2025 7:0 7am [facility] Medical Records Department [address] [place] [id number] Pre-Anesthesia Evaluation 02/18/25 0659 MR#: [id number] Acct: [id number] Name: TAMAR THOMPSON Rep #:[id number] : 1940 84 From: Arslan Berman MD PCP: Dr. Katherin Aguirre MD Status:REG SDC Y Race: C Location: [place] [address] ASA Classification* ASA Classification ASA Classification: 2 Assessment & Plan Anesthesia* Anesthesia Assessment Anesthesia Assessment: Discussed sedation and/or anesthesia options, risks, benefits, and alternatives with patient/parents/legal guardian/POA. Questions invited. The patient/parents/legal guardian/POA seems to understand and agrees to proceedwith anesthesia plan. Reviewed the physical assessment, medical history, allergy history and patient home medications list prior to surgery/procedure/anesthetic and documented any changes. Performed airway and anesthesia risk assessments. Anesthesia Type Anesthesia Type: MAC History Source History Obtained from:: Patient and Chart Anesthesia Focused Assessment* Temperature: 97.4 F Pulse Rate: 93 Blood Pressure: 144/78 Respiratory Rate: 18 Pulse Ox: 97 Oxygen Delivery Method: Room Air Airway Assessment Mouth opens: >3 cm Mallampati Score: IV Teeth Condition: Missing (Patient has several missing teeth.) Neck Range of motion (ROM): Limited ROM (Slight decrease in extension) Focused Labs Anesthesia Preop lab: CBC WBC 9.5 K/mm3 (4.4-11.0) 08/04/22 10:12 08/04/22 RBC 4.84 M/mm3 (4.2-5.4) 08/04/22 10:12 08/04/22 Hgb 14.5 g/dL (12.0-15.0) 08/04/22 10:12 08/04/22 Hct 46.7 % (37-47) 08/04/22 10:12 08/04/22 Plt Count 231 K/mm3 (150-450) 08/04/22 10:12 08/04/22 CHEMISTRY Potassium 3.7 mmol/L (3.5-5.1) 07/18/23 15:30 07/18/23 Sodium 141 mmol/L (136-145) 07/18/23 15:30 07/18/23 BUN 20 mg/dL (7-18) H 07/18/23 15:30 07/18/23 Creatinine 1.46 mg/dL (0.55-1.02) H 07/18/23 15:30 Glucose 146 mg/dL (74-106) H 07/18/23 15:30 07/18/23 POC Glucose 112 mg/dL (70-110) H 07/09/19 09:55 07/09/19 TSH 3.22 uIU/mL (0.358-3.74) 03/12/24 12:01 COAG PT 15.0 SECONDS (11.7-14.9) H 07/12/19 12:25 0904/24 Pre-Assessment Diagnosis/Proposed Procedure Planned Operative Procedure(s): RIGHT OPEN CARPAL TUNNEL RELEASE Anesthesia History 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 When Was Last Pacemaker Check QUESTION #4 FULL TEXT: You/Your Family Experience fever (hyperthermia) with Anesthesia Last Oral Intake Last Oral intake: Last Oral Intake NPO since :02/18/25 06:37 Meds taken in AM with sips of Yes 02/18/25 06:37 water? Meds patient instructed to take am of surgery Any additional information?: Yes NPO since: : (Patient had a couple sips of black coffee at 5:25 AM. Nothing to eat since last night.) PONV PONV - wood die maker: PONV - wood die maker Female Yes 02/14/25 09:14 HX of Motion Sickness No 02/14/25 09:14 HX of N/V After Surgery No 02/14/25 09:14 Non-Smoker Yes 02/14/25 09:14 Duration of Surgery greater No 02/14/25 09:14 than 60 minutes Number of Risk Factors 2 02/14/25 09:14 PONV Score Moderate Risk 02/14/25 09:14 Height & Weight Height & Weight: Anesthesia: Height & Weight Height 5 ft 7 in 02/18/25 06:37 Weight: 80.739 kg 02/18/25 06:37 Body Mass Index (BMI) 27.8 02/18/25 06:37 Respiratory Assessment Respiratory Assessment - wood die maker: Respiratory Tract Infection Hx - wood die maker Hx Respiratory Tract Infection No 02/14/25 09:14 STOP Sleep Apnea STOP Sleep Apnea - wood die maker: STOP Sleep Apnea - wood die maker Hx Hypertension Yes: CONTROLLED WITH MED 02/14/25 09:14 Hx Sleep Apnea No 02/14/25 09:14 CPAP No 07/11/19 12:00 BIPAP Do you snore loudly (louder Yes 02/14/25 09:14 than talking or can be heard Do you often feel tired/ No 02/14/25 09:14 fatigued/ sleepy during daytime? Has anyone observed you stop No 02/14/25 09:14 breathing during sleep? STOP Results Positive 02/14/25 09:14 QUESTION #5 FULL TEXT : Do you snore loudly (louder than talking or can be heard through closed doors)? 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 Specify any problems Hx of Preganancy in last 3 No 02/14/25 09:14 Months Nurse Filling Out Transfusion DSCHRIBER 02/14/25 09:14 & Questions: Date: 02/14/25 02/14/25 09:14 Time: 09:19 02/14/25 09:14 Patient unable to answer at this time (ie. confused, unrespo /Reproduction History /Reproductive History - wood die maker: /Reproductive Hx- wood die maker Hx Now No 02/14/25 09:14 Gestational Age (in weeks): EDC: Hx Hx Para Hx Section SAB No 02/14/25 09:14 Active Medications Active Medications: Current Medications Generic Name Dose Route Start Last Admin Trade Name Freq PRN Reason Stop Dose Admin Cefazolin Sodium 2 gm/ N/A 20 mls @ 400 mls/hr 02/18/25 10:15 IV 02/18/25 10:17 PREOP ONE PFSH Medical History Wears glasses Cancer Post-menopausal Anxiety Thyroid disease Bladder disease Walker as ambulation aid Arthritis Back pain Injury of head and neck Former smoker Shortness of breath on exertion History of pain when walking History of echocardiogram Hypertension COPD (chronic obstructive pulmonary disease) Home Medications ?Medication ?Instructions ?Recorded ?Last Taken ?Type fluticasone 232 mcg-salmeterol 14 1 puff IH Q12 02/18/25 05:15 Rx mcg/actuation breath activated powdr levothyroxine 75 mcg tablet 75 mcg PO DAILY@0600 07/2402/18/25 05:15 Rx multivitamin with folic acid 400 1 tab PO DAILY@0800 0 07/24/19 02/16/25 Rx mcg tablet hydrochlorothiazide 12.5 mg tablet 12.5 mg PO QDAY 01/2802/17/25 History losartan 50 mg tablet 50 mg PO QDAY 01/06/2502/18 05:15 History calcium carbonate (Calcium 600) 600 mg PO DAILY 02/16/25 History vitamins A,C,Y-qlzj-cbrmqr 4,296 1 cap PO BID 02/14/25 02/17/25 History mcg-226 mg-90 mg capsule (PreserVision AREDS) amoxicillin 500 mg tablet 500 mg PO ONCE PRN before de ntal 02/18/25 Unknown History procedure Allergy/AdvReac Type Severity Reaction Status Date / Time No Known Allergies Allergy Verified 02/18/25 06:32 Family History Mother CVA (cerebral vascular accident) Brother Kidney disease Aneurysm Not sure what type, 1969 Surgical History Hx of right cataract extraction Hx of left cataract extraction Hx of colonoscopy Hx of varicose vein ligation and stripping Hx of hemorrhoidectomy Hx of total knee arthroplasty h/o left knee scope History of hysterectomy Social History Smoking Status: Former smoker pack-years: 57 alcohol intake: never Review of Systems (Anesthesia) ROS Narrative System reviewed and no additional complaints, except as documented. 02/18/25706 <Electronically signed by Arslan harvey MD> Date _ Arslan Berman MD Cosigner Signature: Date CC: ~ Signed [facility] Work Phone: 1(538) 594-794604-15-2025 Consult note [facility] Medical Records Department [address] [place] [address] Anesthesia Postop Eval I 02/18/25803 MR#: [id number] Acct: [id number] Name: TAMAR THOMPSON Rep #:[id number] : 1940 84 From: Pb HOYT PCP: Dr. Katherin Aguirre MD Status:REG [facility] Y Race: C Location: [place] [address] Anesthesia: Postop Eval I Current Vital Signs Temperature: 97.9 F Pulse Rate: 80 Blood Pressure: 97/62 Respiratory Rate: 18 Pulse Ox: 99 Oxygen Delivery Method: Simple Mask Oxygen Flow Rate (L/min): 4 Assessment Airway patent: Yes Spontaneous unlabored respirations: Yes Mental status: Awake nausea: No Vomiting: No Anesthesia Complication: No Fluid Hydration Crystalloid volume administer (ml): 500 Total IV fluid infused: 500 Progress Note Anesthesia document: Postop Eval 1 completed: Yes 02/18/25 08 ENTRY LEVEL MARKETING REPRESENTATIVE> Date _ Pb Tao ENTRY LEVEL MARKETING REPRESENTATIVE Cosigner Signature: Date CC: ~ Signed [facility]04-15-2025 Discharge summary [facility] Medical Records Department [address] [place] [address] Instructions for Home/Discharge Instructions 02/18/25 0759 MR#: [id number] Acct: [id number] Name: TAMAR THOMPSON Rep #:[id number] : 1940 84 From: Orion Diaz DO PCP: Dr. Katherin Aguirre MD Status:REG [facility] Discharge Instructions Diet Discharge Diet: No restrictions Dressing / Incision Call your doctor if you observe: Shortness of breath and Chest pain Additional Dressing/Incision Instructions:: Ice and elevate operative extremity next 72 hours. Keepdressing on clean and dry for 48 hours then may remove and allow warm soapy water to rinse over incision but do not submerge until sutures are out. Then apply bandaid over incision and change daily. encourage finger range of motion. Not lift more than 1/2 pound. Minimize narcotic use only as neededand directed, may use OTC NSAID and Tylenol to supplement/substitute for pain control. Follow Up Care Please Follow Up With: Orion Diaz DO When: 2 weeks Test Results: Test results from this visit will be discussed in further detail at your follow- up appointment, if applicable. Discharge Plan Admission Primary Reason for Your Visit: Right carpal tunnel release Attending Provider: Orion Diaz Primary Care Provider: Katherin Aguirre Instructions Print Language: Austrian Discharge Orders/Prescriptions Prescriptions: New hydrocodone-acetaminophen 5-325 mg tablet 1 tab PO Q4H PRN (Reason: pain) 3 Days Qty: 7 0RF No Action hydrochlorothiazide 12.5 mg tablet 12.5 mg PO QDAY losartan 50 mg tablet 50 mg PO QDAY levothyroxine 75 MCG tablet 75 mcg PO DAILY@0600 0RF multivitamin with folic acid 1 TABLET tablet 1 tab PO DAILY@0800 0RF fluticasone propion-salmeterol 1 PUFF inhaler 1 puff IH Q12 0RF calcium carbonate [Calcium 600] 600 mg calcium (1,500 mg) tablet 600 mg PO DAILY PreserVision AREDS 4,296 mcg-226 mg-90 mg capsule 1 cap PO BID amoxicillin 500 mg tablet 500 mg PO ONCE PRN (Reason: before dental procedure) Rx Instructions: take 4 tabs within 1 hr prior to dental procedure. Referrals / Follow Up: Katherin Aguirre MD [Primary Care Provider] - Disposition Disposition (needs filled in before D/C Order can be placed): Home, Self Care 02/18/25 0801Joesdras Diaz DO CC: Dr. Katherin Aguirre MD ~ Signed [facility]04-15-2025 Procedure note [facility] Medical Records Department [address] [place] [address] Operative Report 02/18/25 0758 MR#: [id number] Acct: [id number] Name: TAMAR THOMPSON Rep #:[id number] : 1940 84 From: Orion Diaz DO PCP: Dr. Katherin Aguirre MD Status:[facility] Location: [place] [address] Operative Report (Standard) Operative Information Date of Procedure: 02/18/25 Pre-Operative Diagnosis: Right carpal tunnel syndrome Post-Operative Diagnosis: Same Surgery/Procedure Performed: Right carpal tunnel release concierge: Yes [employer] Supervisor: Hugo Ramos Tasks completed by assistant city attorney: Opening & closing Type of Anesthesia: Local MAC RN Documented Start/Stop Times: Operation Date: 02/18/25 07:30 Case Time Into Pre-Op 02/18/25 06:15 Out of Pre-Op 02/18/25 07:22 Anesthesia Start 02/18/25 07:26 Into Room 02/18/25 07:26 Procedure Start 02/18/25 07:41 Procedure End 02/18/25 07:54 Anesthesia End 02/18/25 07:58 Out of Room 02/18/25 07:58 Procedure Start Time: 07:41 Procedure Stop Time: 07:54 Select all DRAINS/GRAFTS/IMPLANTS that apply: None Estimated Blood Loss: 0 Specimen collected: No Description of surgery: Preoperative diagnosis; right carpal tunnel syndrome Postoperative diagnosis; same Procedure: Right open carpal tunnel release Anesthesia: Local with MAC Tourniquet time; 10 minutes 250 mm Hg Complications: None Indication for procedure; This is a 84-year-old female with long-standing symptoms consistent with carpal tunnel syndrome the patient did have electrodiagnostic evidence of this and has failed conservative treatment. Risksbenefits and alternatives were reviewed including risks of bleeding infectionnerve artery tissue damage need for further surgery and continued pain and symptoms, hypersensitivity to scar and Pillar pain. Procedure; The patient was met in the preoperative holding area the operative extremity was identified by both patient and physician and was marked the patient was met by anesthesia and brought back to the operating room and transferred to the operating table in the supine position. Anesthesia was s tarted. A well-padded tourniquet was placed on the operative upper extremity. The patient was prepped and draped in the usual sterile fashion. A timeout was called to ensure the proper patient procedure and extremity were being contemplated. 0.5 percent lidocaine with epinephrine was injected into the incisional area. An Esmarch was used to exsanguinate the extremity. The tourniquet was inflated to 250 mmHg. A midline incision was made with a 15 blade scalpel between the thenar and hypothenar eminence. This was carried downthrough the skin and subcutaneous tissue. Walt retractors were then used, a deep blade scalpel was used to make a deep incision in the palmar aponeurosis. The walt retractors were then placed deep to this and the transverse carpal ligament was identified a perforation was made with a scalpel and a Littler scissors were used to complete the release of the transverse carpal ligament distally under direct visualization with the tips facing ulnarly until the perivascular fat was reached. Then turning our attention proximally using a tension slide technique the proximal extent of the transverse carpal ligament was released . There was noted to be hourglass configuration to the median nerve and hypertrophy of the transverse carpal ligament without other findings. The wound was thoroughly irrigated and was closed with 4-0 nylon vertical mattress stitches. Dressing was applied in the form of xeroform 4 x 4, web roll and an sandor wrap. Tourniquet was let down there is no intraoperative complications patient tolerated the procedure well and was transferred to the PACU. All counts were correct. Surgical Findings: Hypertrophied transverse carpal ligament Complications Complications: No 02/18/25 3725 Cosigner Signature (if applicable): CC: Dr. Katherin Aguirre MD; Dr. Orion Diaz DO~ Signed [facility]04-15-2025 History and physical note [facility] Medical Records Department [address] [place] [address] History & Physical Exam 02/18/25 1580 MR#: [id number] Acct: [id number] Name: TAMAR THOMPSON Rep #:[id number] : 1940 84 From: Orion Diaz DO PCP: Dr. Katherin Aguirre MD Status:REG [facility] Location: [place] [address] History and Physical Date of Admission: 02/18/25 [facility] [address] [place] [address] [place] [address] OFFICE VISIT Date of Service: 02/12/25 MR#: [id number] Acct: [id number] Name: TAMAR THOMPSON Rep #: [id number] : 1940 Provider: Dr. Orion Diaz DO Age/Sex: 84/F Location: [facility] Status: Signed Intake Vital Signs 01/06/2513:05 Height 5 ft 7 in Weight: 180 lb 2 oz BMI 28.2 Intake Visit Reasons: BL WRISTS Chief Complaint: Bilateral Wrist Pain Allergies No Known Allergies Allergy (Verified 02/12/25 10:54) Medications ?Medication ?Instructions ?Recorded ?Confirmed ?Type fluticasone 232 mcg-salmeterol 14 1 puff IH Q12 07/24/19 02/12/25 Rx mcg/actuation breath activated powdr levothyroxine 75 mcg tablet 75 mcg PO DAILY@0600 07/24/19 02/12/25 R x multivitamin with folic acid 400 1 tab PO DAILY@0800 07/24/19 02/12/25 Rx mcg tablet Handicap Placard See Rx Instructions .Route 12XD #1 08/28/19 02/12/25 Rx unit handicap placard See Rx Instructions .Route 09/06/19 02/12/25 Rx .COMPLEX #1 unit hydrochlorothiazide 12.5 mg tablet 12.5 mg PO QDAY 01/06/25 02/12/25 Histor y losartan 50 mg tablet 50 mg PO QDAY 01/06/25 02/12/25 History amoxicillin 500 mg tablet 500 mg PO ONCE #4 tabs 02/12/25 02/12/25 Rx Have you fallen in the past year?: No PFSH Medical History COPD (chronic obstructive pulmonary disease) Surgical History h/o left knee scope History of hysterectomy Family History Mother CVA (cerebral vascular accident)Brother Kidney disease Aneurysm Not sure what type, 1969 Social History Smoking Status: Former smoker pack-years: 57 alcohol intake: never HPI BL WRISTS Details: This documentation accurately reflects the service provided and the decisions made by me, Dr. Orion Diaz, DO 02/12/25 0806. Part of today?s visit was documented by Mandi ROBLERO, acting as scribe. TAMAR THOMPSON is a 84 year old F here today for bilateral hand EMG review. She denies nay changes. She does note that she needs a refill of the antibiotic as she is having some dental procedures done and had a knee replacement in 2019. 01/06/2025 visit:F here today for bilateral wrist pain. This has been bothering her for quite awhile but progressively gotten worse. She denies any pain in the wrists but complains of numbness and tingling from the wrists to the fingers. She does wear braces at night for past year, and she states they help her for the most part at night. She states the numbness/tingling are in all of her fingers. She denies any prior surgeries, injections. Patient is RHD. She does see a chiropractor for her neck but has not had any surgery. she is concerned if she does have carpal tunnel release surgery that afterwards she will need to use a walker for her balance. Plan:Patient has had ongoing carpal tunnel symptoms for over a year she does getsome benefit from night bracing but her symptoms have progressively worsened sheis also complaining of weakness at thispoint I would recommend EMG nerve conduction study bilateral upper extremity. explained that if surgery is needed for carpal tunnel release then she would get one hand/wrist done at one time. We could use a wrist brace to help with the use of the walker if needed postoperatively once she has the EMG is done she should come back here in the office togo over the results and further discuss treatment options. Follow up after the EMG test is done or sooner if pain, swelling, numbness or associated symptoms, or concerns develop. All questions answered. Patient in agreement of plan. Ortho Exam General General: Yes no acute distress Neurologic: Yes alert and Yes oriented x3 Psychologic: Yes reasonable and appropriate Right Wrist/Hand Skin/Wound: No Swelling, No Ecchymosis, Yes nail intact and Yes capillary refillnormal WRIST: possible early thenar and hypothenar atrophy mild flexion contracture of PIP joint of index finger Intact flexor and extensor tendons full digit flexion full supination full pronation wrist EXT 60 wrist FLEX 50 - Tinel's - Tinel's at elbow - Direct compression and hyperflexion of elbow Left Wrist/Hand Skin/Wound: Yes CDI, No Swelling, No Ecchymosis, Yes capillary refill normal andNo erythema WRIST: possible early thenar and hypothenar atrophy mild flexion contracture of PIP joint of index finger Intact flexor and extensor tendons full digit flexion 75 deg supination full pronation wrist EXT 60 wrist FLEX 50 - Tinel's - Tinel's at elbow - Direct compression and hyperflexion of elbow Head: Normocephalic Atraumatic Chest: symmetrical rise, non-labored breathing, no audible wheeze Abdomen: no guarding, non-rigid Supplemental Info 02/05/2025 EMG bilateral upper extremities: Electrodiagnostic impression: This is an abnormal study in the upper limbs 4 1 electrodiagnostic findings suggestive of bilateral median mononeuropathy. Thisconsistent with a moderate to advancedbilateral carpal tunnel syndrome. Coding Level of Care Code Off vis,est,level 4 Diagnoses Carpal tunnel syndrome, bilateral G56.03 Assessment and Plan Assessment and Plan (1) Carpal tunnel syndrome, bilateral: Status: Acute Medications: New amoxicillin take 4 tabs within 1 hr prior to dental procedure. 500 mg PO ONCE 4 tabs 0RF Plan Patient is here today for EMG review of her bilateral hands. I explained to patient that she does have severe carpal tunnel syndrome of both hands. We spoke about surgical versus nonsurgical intervention. I can't promise that the nerve will come back after the surgery also due to the severity of her carpal tunnel. As far as her using the walker I would recommend she use a platform walker so she puts more of her weight through her forearm and it would reduce the chance of the incision opening maximo aldrichhiscing. She will have restrictions of .5lbs the first two weeks then the third week she willhave a 5lb restriction. Patient wishes to proceed with a right open carpal tunnel release for a projected surgery date of 02/18/25. Risks include but are not limited to bleeding infection nerve arterytissue damage need for further surgery continuedpain continued symptoms incisional hypersensitivityand postoperative restrictions and expected course . I will also provide patient with some exercises to do after surgery to help with her ROM. Clinical Quality Measures Falls Risk Screening/Assistive Devices Have you fallen in the past year?: No 02/12/25 1204 Date Orion Diaz DO I have examined the patient and the H&P has been reviewed. There are no clinicalchanges since date of exam. 02/18/25 0711 Cosigner Signature (if applicable): CC: Dr. Katherin Aguirre MD; Dr. Orion Diaz DO~ Signed [facility]04-15-2025 [facility] Medical Records Department [address] [place] [id number] History Physical Exam 02/18/25 0710 MR#: [id number] Acct: [id number] Name: SHARRONTAMAR Mac Jed Rep #: [id number] : 1940 84 From: Orion Diaz DO PCP: Dr. Katherin Aguirre MD Status:[facility] Location: [place] [address] History and Physical Date of Admission: 02/18/25 [facility] [address] [place] [address] OFFICE VISIT Date of Service: 02/12/25 MR#: [id number] Acct: [id number] Name: SHARRONBubbaTAMAR Jed Rep #: [id number] : 1940 Provider: Dr. Orion Diaz DO Age/Sex: 84/F Location: [facility] Status: Signed Intake Vital Signs 01/06/2513:05 Height 5 ft 7 in Weight: 180 lb 2 oz BMI 28.2 Intake Visit Reasons: BL WRISTS Chief Complaint: Bilateral Wrist Pain Allergies No Known Allergies Allergy (Verified 02/12/25 10:54) Medications ???Medication ???Instructions ???Recorded ???Confirmed ???Type fluticasone 232 mcg-salmeterol 14 1 puff IH Q12 07/24/19 02/12/25 Rx mcg/actuation breath activated powdr levothyroxine 75 mcg tablet 75 mcg PO DAILY@0600 07/24/19 02/12/25 Rx multivitamin with folic acid 400 1 tab PO DAILY@0807/24/19 02/12/25 Rx mcg tablet Handicap Placard See Rx Instructions .Route 12XD #1 08/28/19 02/12/25 Rx unit handicap placard See Rx Instructions .Route 09/06/19 02/12/25 Rx .COMPLEX #1 unit hydrochlorothiazide 12.5 mg tablet 12.5 mg PO QDAY 01/06/25 02/12/25 History losartan 50 mg tablet 50 mg PO QDAY 01/06/25 02/12/25 History amoxicillin 500 mg tablet 500 mg PO ONCE #4 tabs 02/12/25 02/12/25 Rx Have you fallen in the past year?: No PFSH Medical History COPD (chronic obstructive pulmonary disease) Surgical History h/o left knee scope History of hysterectomy Family History Mother CVA (cerebral vascular accident)Brother Kidney disease Aneurysm Not sure what type, 1970 Social History Smoking Status: Former smoker pack-years: 57 alcohol intake: never HPI BL WRISTS Details: This documentation accurately reflects the service provided and the decisions made by me, Dr. Orion Diaz, DO 02/12/25805. Part of today???s visit was documented by Mandi ROBLERO, acting as scribe. TAMAR THOMPSON is a 84 year old F here today for bilateral hand EMG review. She denies nay changes. She does note that she needs a refill of the antibiotic as she is having some dental procedures done and had a knee replacement in 2019. 01/06/2025 visit:F here today for bilateral wrist pain. This has been bothering her for quite awhile but progressively gotten worse. She denies any pain in the wrists but complains of numbness and tingling from the wrists to the fingers. She does wear braces at night for past year, and she states they help her for the most part at night. She states the numbness/tingling are in all of her fingers. She denies any prior surgeries, injections. Patient is RHD. She does see a chiropractor for her neck but has not had any surgery. she is concerned if she does have carpal tunnel release surgery that afterwards she will need to use a walker for her balance. Plan:Patient has had ongoing carpal tunnel symptoms for over a year she does get some benefit from night bracing but her symptoms have progressively worsened she is also complaining of weakness at this point I would recommend EMG nerve conduction study bilateral upper extremity. explained that if surgery is needed for carpal tunnel release then she would get one hand/wrist done at one time. We could use a wrist brace to help with the use of the walker if needed postoperatively once she has the EMG is done she should come back here in the office to go over the results and further discuss treatment options. Follow up after the EMG test is done or sooner if pain, swelling, numbness or associated symptoms, or concerns develop. All questions answered. Patient in agreement of plan. Ortho Exam General General: Yes no acute distress Neurologic: Yes alert and Yes oriented x3 Psychologic: Yes reasonable and appropriate Right Wrist/Hand Skin/Wound: No Swelling, No Ecchymosis, Yes nail intact and Yes capillary refill normal WRIST: possible early thenar and hypothenar atrophy mild flexion contracture of PIP joint of index finger Intact flexor and extensor tendons full digit flexion full supination full pronation wris (more content not included)...[facility]04-15-2025 Consult note [facility] Medical Records Department [address] [place] [address] Pre-Anesthesia Evaluation 02/18/25 0659 MR#: [id number] Acct: [id number] Name: TAMAR THOMPSON Rep #:[id number] : 1940 84 From: Arslan Berman MD PCP: Dr. Katherin Aguirre MD Status:REG SDC Y Race: C Location: [place] [address]- ASA Classification* ASA Classification ASA Classification: 2 Assessment & Plan Anesthesia* Anesthesia Assessment Anesthesia Assessment: Discussed sedation and/or anesthesia options, risks, benefits, and alternatives with patient/parents/legal guardian/POA. Questions invited. The patient/parents/legal guardian/POA seems to understand and agrees to proceedwith anesthesia plan. Reviewed the physical assessment, medical history, allergy history and patient home medications list prior to surgery/procedure/anesthetic and documented any changes. Performed airway and anesthesia risk assessments. Anesthesia Type Anesthesia Type: MAC History Source History Obtained from:: Patient and Chart Anesthesia Focused Assessment* Temperature: 97.4 F Pulse Rate: 93 Blood Pressure: 144/78 Respiratory Rate: 18 Pulse Ox: 97 Oxygen Delivery Method: Room Air Airway Assessment Mouth opens: >3 cm Mallampati Score: IV Teeth Condition: Missing (Patient has several missing teeth.) Neck Range of motion (ROM): Limited ROM (Slight decrease in extension) Focused Labs Anesthesia Preop lab: CBC WBC 9.5 K/mm3 (4.4-11.0) 08/04/22 10:12 08/04/22 RBC 4.84 M/mm3 (4.2-5.4) 08/04/22 10:12 08/04/22 Hgb 14.5 g/dL (12.0-15.0) 08/04/22 10:12 08/04/22 Hct 46.7 % (37-47) 08/04/22 10:12 08/04/22 Plt Count 231 K/mm3 (150-450) 08/04/22 10:12 08/04/22 CHEMISTRY Potassium 3.7 mmol/L (3.5-5.1) 07/18/23 15:30 07/18/23 Sodium 141 mmol/L (136-145) 07/18/23 15:30 07/18/23 BUN 20 mg/dL (7-18) H 07/18/23 15:30 07/18/23 Creatinine 1.46 mg/dL (0.55-1.02) H 07/18/23 15:30 Glucose 146 mg/dL (74-106) H 07/18/23 15:30 07/18/23 POC Glucose 112 mg/dL (70-110) H 07/09/19 09:55 07/09/19 TSH 3.22 uIU/mL (0.358-3.74) 03/12/24 12:01 COAG PT 15.0 SECONDS (11.7-14.9) H 07/12/19 12:25 09/04/24 Pre-Assessment Diagnosis/Proposed Procedure Planned Operative Procedure(s): RIGHT OPEN CARPAL TUNNEL RELEASE Anesthesia History 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 When Was Last Pacemaker Check QUESTION #4 FULL TEXT: You/Your Family Experience fever (hyperthermia) with Anesthesia Last Oral Intake Last Oral intake: Last Oral Intake NPO since 05:25 02/18/25 06:37 Meds taken in AM with sips of Yes 02/18/25 06:37 water? Meds patient instructed to take am of surgery Any additional information?: Yes NPO since: 05:25 (Patient had a couple sips of black coffee at 5:25 AM. Nothing to eat since last night.) PONV PONV - wood die maker: PONV - wood die maker Female Yes 02/14/25 09:14 HX of Motion Sickness No 02/14/25 09:14 HX of N/V After Surgery No 02/14/25 09:14 Non-Smoker Yes 02/14/25 09:14 Duration of Surgery greater No 02/14/25 09:14 than 60 minutes Number of Risk Factors 2 02/14/25 09:14 PONV Score Moderate Risk 02/14/25 09:14 Height & Weight Height & Weight: Anesthesia: Height & Weight Height 5 ft 7 in 02/18/25 06:37 Weight: 80.739 kg 02/18/25 06:37 Body Mass Index (BMI) 27.8 02/18/25 06:37 Respiratory Assessment Respiratory Assessment - wood die maker: Respiratory Tract Infection Hx - wood die maker Hx Respiratory Tract Infection No 02/14/25 09:14 STOP Sleep Apnea STOP Sleep Apnea - wood die maker: STOP Sleep Apnea - wood die maker Hx Hypertension Yes: CONTROLLED WITH MED 02/14/25 09:14 Hx Sleep Apnea No 02/14/25 09:14 CPAP No 07/11/19 12:00 BIPAP Do you snore loudly (louder Yes 02/14/25 09:14 than talking or can be heard Do you often feel tired/ No 02/14/25 09:14 fatigued/ sleepy during daytime? Has anyone observed you stop No 02/14/25 09:14 breathing during sleep? STOP Results Positive 02/14/25 09:14 QUESTION #5 FULL TEXT : Do you snore loudly (louder than talking or can be heard through closeddoors)? 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 Specify any problems Hx of Preganancy in last 3 No 02/14/25 09:14 Months Nurse Filling Out Transfusion DSCHRIBER 02/14/25 09:14 & Questions: Date: 02/14/25 02/14/25 09:14 Time: 09:19 /11/25 09:14 Patient unable to answer at this time (ie. confused, unrespo /Reproduction History /Reproductive History - wood die maker: /Reproductive Hx- wood die maker Hx Now No 02/14/25 09:14 Gestational Age (in weeks): EDC: Hx Hx Para Hx Section SAB No 02/14/25 09:14 Active Medications Active Medications: Current Medications Generic Name Dose Route Start Last Admin Trade Name Freq PRN Reason Stop Dose Admin Cefazolin Sodium 2 gm/ N/A 20 mls @ 400 mls/hr 02/18/25 10:15 IV 02/18/25 10:17 PREOP ONE [facility] Medical History Wears glasses Cancer Post-menopausal Anxiety Thyroid disease Bladder disease Walker as ambulation aid Arthritis Back pain Injury of head and neck Former smoker Shortness of breath on exertion History of pain when walking History of echocardiogram Hypertension COPD (chronic obstructive pulmonary disease) Home Medications ?Medication ?Instructions ?Recorded ?Last Taken ?Type fluticasone 232 mcg-salmeterol 14 1 puff IH Q12 02/18/25 05:15 Rx mcg/actuation breath activated powdr levothyroxine 75 mcg tablet 75 mcg PO DAILY@0600 07/2402/18/25 05:15 Rx multivitamin with folic acid 400 1 tab PO DAILY@0800 0 07/24/19 02/16/25 Rx mcg tablet hydrochlorothiazide 12.5 mg tablet 12.5 mg PO QDAY 01/2802/17/25 History losartan 50 mg tablet 50 mg PO QDAY 01/06/2502/18 05:15 History calcium carbonate (Calcium 600) 600 mg PO DAILY 02/16/25 History vitamins A,C,R-regp-yckfws 4,296 1 cap PO BID 02/14/25 02/17/25 History mcg-226 mg-90 mg capsule (PreserVision AREDS) amoxicillin 500 mg tablet 500 mg PO ONCE PRN before de ntal 02/18/25 Unknown History procedure Allergy/AdvReac Type Severity Reaction Status Date / Time No Known Allergies Allergy Verified 02/18/25 06:32 Family History Mother CVA (cerebral vascular accident) Brother Kidney disease Aneurysm Not sure what type, 1970 Surgical History Hx of right cataract extraction Hx of left cataract extraction Hx of colonoscopy Hx of varicose vein ligation and stripping Hx of hemorrhoidectomy Hx of total knee arthroplasty h/o left knee scope History of hysterectomy Social History Smoking Status: Former smoker pack-years: 57 alcohol intake: never Review of Systems (Anesthesia) ROS Narrative System reviewed and no additional complaints, except as documented. 02/18/25 0707 wes PORTILLO> Date _ Arslan Berman MD Cosigner Signature: Date CC: ~ Signed [facility]04-02-2025 Procedure note [facility] Pulmonary Services/Neurology [address] [place] [address] MR#: [id number] Acct: [id number] Name: TAMAR THOMPSON Rep #:[id number] : 1940 84 From: Angel Escobar MD Referring Dr: Orion Diaz tus: REG CLI Location: [facility] Date: 02/05/25 Sex: F C NCS and/or EMG Patient Report Ordering Doctor: Orion Diaz DATE OF SERVICE: 02/05/25 Tamar presents numbness and tingling in both hands, progressively worsening over the past year. Electrodiagnostic findings: Median motor nerve demonstrates prolonged latency bilaterally with reduced amplitude and reduced conduction velocity. Ulnar motorresponse is within normal limits bilaterally. Normal median and ulnar F?waves. Absent median sensory latency at the wrist bilaterally. Needle EMG testing was performed upper limbs. All muscles tested showed no evidence of denervation with normal motor unit action potentials. Electrodiagnostic impression: This is an abnormal study in the upper limbs 4 1 electrodiagnostic findings suggestive of bilateral median mononeuropathy. This consistent with a moderate to advanced bilateral carpal tunnel syndrome. Multi Select Codes Neurology Neurology Interp Codes: 86182-16 Musc test done w/n test comp (interp) (2) and 97356-83 Nrv cndj test 11-12 studies (interp) 02/05/25 1300 D> Date _ Angel Escobar MD CC: Dr. Katherin Aguirre MD; Dr. Angel Escobar MD; Dr. Orion Diaz DO ~ Date Dictated: 02/05/25 1258 Date Transcribed: 02/05/251257 Acoustical Installer: ZULMA Signed [facility]03-03-2025 Evaluation note* Diagnosis Onset Date Resolution Status Admit Date Carpal tunnel syndrome, bilateral acute January 06, 2025 12:43pm [facility] Work Phone: [phone]) 973-689903-03-2025 Evaluation note* Diagnosis Onset Date Resolution Status Admit Date Carpal tunnel syndrome, bilateral acute January 06, 2025 12:43pm Carpal tunnel syndrome, bilateral acute February 12, 2025 10:45am [facility] Work Phone: 1(704) 689-293612-20-2024 Consult note Author Pb Tao [facility] Note Date/Time February 18, 2025 8:0 5am [facility] Medical Records Department [address] [place] [address] Anesthesia Postop Eval I 02/18/25 0804 MR#: [id number] Acct: [id number] Name: TAMAR THOMPSON Jed Rep #:[id number] : 1940 84 From: Pb HOYT PCP: Dr. Katherin Aguirre MD Status:REG SDC Y Race: C Location: [place] [address] Anesthesia: Postop Eval I Current Vital Signs Temperature: 97.9 F Pulse Rate: 80 Blood Pressure: 97/62 Respiratory Rate: 18 Pulse Ox: 99 Oxygen Delivery Method: Simple Mask Oxygen Flow Rate (L/min): 4 Assessment Airway patent: Yes Spontaneous unlabored respirations: Yes Mental status: Awake nausea: No Vomiting: No Anesthesia Complication: No Fluid Hydration Crystalloid volume administer (ml): 500 Total IV fluid infused: 500 Progress Note Anesthesia document: Postop Eval 1 completed: Yes 02/18/25 0805 <Electronically signed by Pb Tao ENTRY LEVEL MARKETING REPRESENTATIVE> Date _ Pb Tao ENTRY LEVEL MARKETING REPRESENTATIVE Cosigner Signature: Date CC: ~ Signed [facility] Work Phone: Consult note Author [facility] Note Date/Time February 18, 2025 9:3 4am [facility] Medical Records Department [address] [place] [address] Anesthesia Postop Eval II 02/18/25 0854 MR#: [id number] Acct: [id number] Name: TAMAR THOMPSON Rep #:[id number] : 1940 84 From: Arslan Berman MD PCP: Dr. Katherin Aguirre MD Status:REG SDC Y Race: C Location: [place] [address] Anesthesia Postop Eval I Sum Postop Eval Completion status Anesthesia document: Postop Eval 1 completed: Yes Anesthesia Postop Eval I Summary Anesthesia Postop Eval I Summary: Anesthesia Postop Eval I: Assessment Summary Airway patent Yes 02/18/25 08:05 ENTRY LEVEL MARKETING REPRESENTATIVE.ADELAIDALOU Spontaneous unlabored Yes 02/18/25 08:05 ENTRY LEVEL MARKETING REPRESENTATIVE.ADELAIDALOU respirations Mental status Awake 02/18/25 08:05 ENTRY LEVEL MARKETING REPRESENTATIVE.JBLOU nausea No 02/18/25 08:05 ENTRY LEVEL MARKETING REPRESENTATIVE.JBLOU Vomiting No 02/18/25 08:05 ENTRY LEVEL MARKETING REPRESENTATIVE.JBLOU Anesthesia Postop Eval I: Fluid Summary Crystalloid volume administer 500 02/18/25 08:05 ENTRY LEVEL MARKETING REPRESENTATIVE.ADAL (ml) Colloids volume administered ( ml) Blood Product volume administered (ml) Total IV fluid infused 500 02/18/25 08:05 ENTRY LEVEL MARKETING REPRESENTATIVE.ADAL Anesthesia Postop Eval I: Summary Notes Anesthesia Complication No 02/18/25 08:05 ENTRY LEVEL MARKETING REPRESENTATIVE.JBLOBecca Anesthesia Complication Comment: Post-operative progress note Anesthesia: Postop Eval II Evaluation Mental status: Awake and Calm Pain Level: 1 nausea: No Vomiting: No Complications Anesthesia Complication: No 02/18/25 0854 <Electronically signed by Arslan harvey MD> Date _ Arslan Berman MD Cosigner Signature: Date CC: ~ Signed [facility] Work Phone: Discharge summary Author [facility] Note Date/Time February 18, 2025 8:0 1am [facility] Medical Records Department [address] [place] [id number] Instructions for Home/Discharge Instructions 02/18/25 0759 MR#: [id number] Acct: [id number] Name: TAMAR THOMPSON Rep #:[id number] : 1940 84 From: [place] PCP: Dr. Katherin Aguirre MD Status:REG [facility] Discharge Instructions Diet Discharge Diet: No restrictions Dressing / Incision Call your doctor if you observe: Shortness of breath and Chest pain Additional Dressing/Incision Instructions:: Ice and elevate operative extremity next 72 hours. Keep dressing on clean and dry for 48 hours then may remove and allow warm soapy water to rinse over incision but do not submerge until sutures are out. Then apply bandaid over incision and change daily. encourage finger range of motion. Not lift more than 1/2 pound. Minimize narcotic use only as needed and directed, may use OTC NSAID and Tylenol to supplement/substitute for pain control. Follow Up Care Please Follow Up With: Orion Diaz DO When: 2 weeks Test Results: Test results from this visit will be discussed in further detail at your follow- up appointment, if applicable. Discharge Plan Admission Primary Reason for Your Visit: Right carpal tunnel release Attending Provider: Orion Diaz Primary Care Provider: Katherin Aguirre Instructions Print Language: Austrian Discharge Orders/Prescriptions Prescriptions: New hydrocodone-acetaminophen 5-325 mg tablet 1 tab PO Q4H PRN (Reason: pain) 3 Days Qty: 7 0RF No Action hydrochlorothiazide 12.5 mg tablet 12.5 mg PO QDAY losartan 50 mg tablet 50 mg PO QDAY levothyroxine 75 MCG tablet 75 mcg PO DAILY@0600 0RF multivitamin with folic acid 1 TABLET tablet 1 tab PO DAILY@0800 0RF fluticasone propion-salmeterol 1 PUFF inhaler 1 puff IH Q12 0RF calcium carbonate [Calcium 600] 600 mg calcium (1,500 mg) tablet 600 mg PO DAILY PreserVision AREDS 4,296 mcg-226 mg-90 mg capsule 1 cap PO BID amoxicillin 500 mg tablet 500 mg PO ONCE PRN (Reason: before dental procedure) Rx Instructions: take 4 tabs within 1 hr prior to dental procedure. Referrals / Follow Up: Katherin Aguirre MD [Primary Care Provider] - Disposition Disposition (needs filled in before D/C Order can be placed): Home, Self Care 02/18/25 0801<Electronically signed by Orion Diaz DO>Orion Diaz DO CC: Dr. Katherin Aguirre MD ~ Signed [facility] Work Phone: Evaluation noteNo assessment information available [facility] Work Phone: Reason for referral (narrative)No reason for referral information availableWTriHealth [facility] Work Phone: Chief Complaint and Reason for Visit Chief Complaint LABS AND XRAY- COPD LABSPEC - URINE Chief Complaint LABS AND XRAY- COPD LABSPEC - URINE DYSPNEA Chief Complaint Admit Date BILATERAL WRISTS January 06, 2025 12:4 3pm Carpal tunnel syndrome, bilateral upper l February 05, 2025 10:15am Carpal tunnel syndrome, bilateral upper l February 05, 2025 12:58pm Reason for Visit Admit Date Carpal tunnel syndrome, bilateral January 06, 2025 12:43pm Chief Complaint Admit Date BILATERAL WRISTS January 06, 2025 12:4 3pm Carpal tunnel syndrome, bilateral upper l February 05, 2025 10:15am Carpal tunnel syndrome, bilateral upper l February 05, 2025 12:58pm BL WRISTS February 12, 2025 10:4 5am Right open Carpal Tunnel Release February 042024 5:59am Right open Carpal Tunnel Release February 042024 7:10am Reason for Visit Admit Date Carpal tunnel syndrome, bilateral January 06, 2025 12:43pm Carpal tunnel syndrome, bilateral February 12, 2025 10:45am Chief Complaint Admit Date right wrist March 03, 2025 11: 11am LEFT WRIST June 25, 2025 10 :55am Reason for Visit Admit Date Orthopedic aftercare March 03, 2025 11 :11am Family History No Family History Records Found Relationship Condition Age at Onset Recorded Date/T jono mother Cerebrovascular accident (CVA) Unknown brother Kidney disorder Unknown Aneurysm Unknown Advance Directives No Advanced Directives Records Found Advance Directive Response Recorded Date/ Time Living Will Yes July 11 2:04pm Power of Forging Press Lever Tender Yes July 11, 2019 2:04pm Advance Directive Response Recorded Date/ Time Living Will Yes February 14, 2025 9:14am Do you have a Healthcare Power of Forging Press Lever Tender? Yes February 14, 2025 9:14am Name of Medical Power of Forging Press Lever Tender SON February 14, 2025 9:14am Summary Purpose Additional Source Comments Goals (unrecognized section and content) Goals may be documented in a n alternate sectionGoals may be documented in an alternate sectionGoals may be documented in an alternate sectionGoals may be documented in an alternate sectionGoals may be documented in an alternate sectionGoals may be documented in an alternate sectionGoals may be documented in an alternate section Care Teams (unrecognized sec tion and content) Team Status: Active Member Role Status Dates Dr. Katherin Aguirre MD Family Provider Active Dr. Katherin Aguirre MD Primary Care Provider Active Team Status: Inactive Member Role Status Dates Dr. Katherin Aguirre MD Primary Care Provider, [facility] Provider Active Team Status: Active Member Role Status Dates Dr. Katherin Aguirre MD Primary Care Provider Active Team Status: Inactive Member Role Status Dates Dr. Katherin Aguirre MD Primary Care Provider Active Start: January 06, 2025 End: January 06, 2025 Dr. Katherin Aguirre MD Referring Provider Active Start: January 06, 2025 End: January 06, 2025 Dr. Orion Diaz DO Attending Provider Active Start: January 06, 2025 End: January 06, 2025 Team Status: Inactive Member Role Status Dates Dr. Katherin Aguirre MD Primary Care Provider Active Start: February 05, 2025 End: February 05, 2025 Dr. Orion Diaz DO Attending Provider Active Start: February 05, 2025 End: February 05, 2025 Dr. Orion Diaz DO Referring Provider Active Start: February 05, 2025 End: February 05, 2025 Team Status: Active Member Role Status Dates Dr. Katherin Aguirre MD Primary Care Provider Active Start: February 05, 2025 Dr. Orion Diaz DO Referring Provider Active Start: February 05, 2025 Dr. Orion Diaz DO Other Provider Active St art: February 05, 2025 Dr. Angel Escobar MD Attending Provider Active S tart: February 05, 2025 Team Status: Inactive Member Role Status Dates Dr. Katherin Aguirre MD Primary Care Provider Active Start: February 12, 2025 End: February 12, 2025 Dr. Katherin Aguirre MD Referring Provider Active Start: February 12, 2025 End: February 12, 2025 Dr. Orion Diaz DO Attending Provider Active Start: February 12, 2025 End: February 12, 2025 Team Status: Inactive Member Role Status Dates Dr. Katherin Aguirre MD Primary Care Provider Active Start: February 18, 2025 End: February 18, 2025 Dr. Orion Diaz DO Attending Provider Active Start: February 18, 2025 End: February 18, 2025 Dr. Orion Diaz DO Referring Provider Active Start: February 18, 2025 End: February 18, 2025 Team Status: Active Member Role Status Dates Dr. Katherin Aguirre MD Primary Care Provider Active Start: February 18, 2025 Dr. Orion Diaz DO Attending Provider Active Start: February 18, 2025 Dr. Orion Diaz DO Referring Provider Active Start: February 18, 2025 Dr. Orion Diaz DO Other Provider Active St art: February 18, 2025 Team Status: Active Member Role/Relationship Status Dates Dr. Katherin Aguirre MD Primary Care Provider Active Team Status: Inactive Member Role/Relationship Status Dates Dr. Katherin Aguirre MD Primary Care Provider Active Start: March 03, 2025 End: March 03, 2025 Dr. Katehrin Aguirre MD Referring Provider Active Start: March 03, 2025 End: March 03, 2025 Dr. Orion Diaz DO Attending Provider Active Start: March 03, 2025 End: March 03, 2025 Team Status: Inactive Member Role/Relationship Status Dates Dr. Katherin Aguirre MD Primary Care Provider Active Start: June 25, 2025 End: June 25, 2025 Dr. Katherin Aguirre MD Referring Provider Active Start: June 25, 2025 End: June 25, 2025 Dr. Orion Diaz DO Attending Provider Active Start: June 25, 2025 End: June 25, 2025 INFORMATION SOURCE (unrecogn ized section and content) DATE CREATED AUTHOR 07/21/[address] [facility] FOR RECORDS PERTAINING TO PATIENTS WHO ARE OR HAVE BEEN ENROLLED IN A CHEMICAL DEPENDENCY/SUBSTANCEABUSE PROGRAM, SOME INFORMATION MAY BE OMITTED. This clinical summary was aggregated from multiple sources. Caution should be exercised in using it in the provision of clinical care. This summary normalizes information from multiple sources, and as a consequence, information in this document may materially change the coding, format and clinical context of patient data. In addition, data may be omitted in some cases. CLINICAL DECISIONS SHOULD BE BASED ON THE PRIMARY CLINICAL RECORDS. [employer] provides no warranty or guarantee of the accuracy or completeness of information in this document.
[2025-07-22] MEDS: Lactated Ringers 1,000 ML 15 ML IV (07:21)
--- NOTE | 2025-07-22 07:26 | PCM.HP.BLA ---
History and Physical Date of Admission: 07/22/25 [facility] [address] [place] [address] OFFICE VISIT Date of Service: 06/25/25 MR#: [id number] Acct: [id number] Name: MARIA ELENA THOMPSON Rep #: [id number] : 1940 Provider: Dr. Orion Diaz DO Age/Sex: 84/F Location: [facility] ANN Status: Signed Intake Vital Signs 02/18/2506:37 06/17/2510:36 Height 5 ft 7 in 5 ft 7 in Intake Visit Reasons: LEFT WRIST Accompanied by: Self Allergies No Known Allergies Allergy (Verified 06/25/25 11:07) Medications ?Medication ?Instructions ?Recorded ?Confirmed ?Type fluticasone 232 mcg-salmeterol 14 1 puff IH Q12 07/24/19 06/25/25 Rx mcg/actuation breath activated powdr levothyroxine 75 mcg tablet 75 mcg PO DAILY@0600 07/24/19 06/25/25 Rx multivitamin with folic acid 400 1 tab PO DAILY@0800 07/24/19 06/25/25 Rx mcg tablet hydrochlorothiazide 12.5 mg tablet 12.5 mg PO QDAY 01/06/25 06/25/25 History losartan 50 mg tablet 50 mg PO QDAY 01/06/25 06/25/25 History calcium carbonate (Calcium 600) 600 mg PO DAILY 02/14/25 06/25/25 History vitamins A,C,Q-pzkc-kiwhpj 4,296 1 cap PO BID 02/14/25 06/25/25 History mcg-226 mg-90 mg capsule (PreserVision AREDS) amoxicillin 500 mg tablet 500 mg PO ONCE PRN before dental 02/18/25 06/25/25 History procedure amoxicillin 500 mg tablet 2,000 mg (4 x 500 mg) PO ONCE #4 05/23/25 06/25/25 Rx tabs Have you fallen in the past year?: No PFSH Medical History Wears glasses Cancer Post-menopausal Anxiety Thyroid disease Bladder disease Walker as ambulation aid Arthritis Back pain Injury of head and neck Former smoker Shortness of breath on exertion History of pain when walking History of echocardiogram Hypertension COPD (chronic obstructive pulmonary disease) Surgical History History of carpal tunnel release Hx of right cataract extraction Hx of left cataract extraction Hx of colonoscopy Hx of varicose vein ligation and stripping Hx of hemorrhoidectomy Hx of total knee arthroplasty h/o left knee scope History of hysterectomy Family History Mother CVA (cerebral vascular accident)Brother Kidney disease Aneurysm Not sure what type, 1969 Social History Smoking Status: Former smoker pack-years: 57 alcohol intake: never HPI LEFT WRIST Details: This documentation accurately reflects the service provided and the decisions made by me, Dr. Orion Diaz, DO 06/25/25823. Part of today?s visit was documented by Mandi ROBLERO, acting as scribe. MARIA ELENA THOMPSON is a 84 year old F here today for the left wrist wanting to discuss a carpal tunnel release. She would like to have the surgery on July 22 and to be later in the day. She does have numbness, tingling and stiffness in the left hand. In addition she does have triggering of the ring finger for over 6 months she has to use her other hand to open it she has not had treatment on that before. She is very happy with the right hand after the carpal tunnel surgery. 03/03/2025 visit:s/p right carpal tunnel release DOS 02/18/2025. Patient states she is doing well and doesn't have any pain in the right wrist today. She states she is very pleased with the surgery and ready to proceed with the left wrist. Plan:She should continue to wash the incision with antibacterial soap daily and keep it covered for the day. If she does anything at home she should keep it covered. She would like to proceed with the left wrist carpal tunnel release but thinking possibly fall. Recommend she wait a little while until the right wrist is healed completely. She should continue to work on her range of motion of the wrist to get back to normal. She shouldn't lift anything over 5 pounds for the next week and after a week her weight restrictions. After her weight restrictions are lifted after a week she is able to take the assistive device off of her walker. Once she is ready to proceed with the left wrist carpal tunnel release she should let the office know. 02/12/2025 visit:here today for bilateral hand EMG review. She denies nay changes. She does note that she needs a refill of the antibiotic as she is having some dental procedures done and had a knee replacement in 2019. Plan:Patient is here today for EMG review of her bilateral hands. I explained to patient that she does have severe carpal tunnel syndrome of both hands. We spoke about surgical versus nonsurgical intervention. I can't promise that the nerve will come back after the surgery also due to the severity of her carpal tunnel. As far as her using the walker I would recommend she use a platform walker so she puts more of her weight through her forearm and it would reduce the chance of the incision opening up and dehiscing. She will have restrictions of .5lbs the first two weeks then the third week she will have a 5lb restriction. Patient wishes to proceed with a right open carpal tunnel release for a projected surgery date of 02/18/25. Risks include but are not limited to bleeding infection nerve artery tissue damage need for further surgery continued pain continued symptoms incisional hypersensitivity and postoperative restrictions and expected course . I will also provide patient with some exercises to do after surgery to help with her ROM. 01/06/2025 visit:F here today for bilateral wrist pain. This has been bothering her for quite awhile but progressively gotten worse. She denies any pain in the wrists but complains of numbness and tingling from the wrists to the fingers. She does wear braces at night for past year, and she states they help her for the most part at night. She states the numbness/tingling are in all of her fingers. She denies any prior surgeries, injections. Patient is RHD. She does see a chiropractor for her neck but has not had any surgery. she is concerned if she does have carpal tunnel release surgery that afterwards she will need to use a walker for her balance. Plan:Patient has had ongoing carpal tunnel symptoms for over a year she does get some benefit from night bracing but her symptoms have progressively worsened she is also complaining of weakness at this point I would recommend EMG nerve conduction study bilateral upper extremity. explained that if surgery is needed for carpal tunnel release then she would get one hand/wrist done at one time. We could use a wrist brace to help with the use of the walker if needed postoperatively once she has the EMG is done she should come back here in the office to go over the results and further discuss treatment options. Follow up after the EMG test is done or sooner if pain, swelling, numbness or associated symptoms, or concerns develop. All questions answered. Patient in agreement of plan. Ortho Exam General General: Yes no acute distress Neurologic: Yes alert and Yes oriented x3 Psychologic: Yes reasonable and appropriate Right Wrist/Hand Skin/Wound: No Swelling and No Ecchymosis Left Wrist/Hand Skin/Wound: No Swelling, No Ecchymosis, Yes nail intact, Yes capillary refill normal and No erythema WRIST: palpable triggering of left ring finger, tender hypertrophied A1 octavio postive phalen durkins Negative Tinel's and direct compression test on the elbow She does have atrophy of the thenar eminence Constitutional: Well-developed; well-nourished; in no acute distress Eyes: No jaundice ENT: Nares patent; no obvious deformity Cardiovascular: No cyanosis; clubbing; or edema Lymphatic: No adenopathy in area of examination Skin: No rashes or lesions in the area of examination and intact Neurologic: Alert and oriented x 3 Psychiatric: Mood and affect appropriate Supplemental Info 02/18/2025 right open carpal tunnel release: Dr. Diaz 02/05/2025 EMG bilateral upper extremities: Electrodiagnostic impression: This is an abnormal study in the upper limbs 4 1 electrodiagnostic findings suggestive of bilateral median mononeuropathy. This consistent with a moderate to advanced bilateral carpal tunnel syndrome. Coding Level of Care Code Off vis,est,level 4 Diagnoses Left carpal tunnel syndrome G56.02 Trigger finger, left ring finger M65.342 Assessment and Plan Assessment and Plan (1) Left carpal tunnel syndrome: Status: Acute (2) Trigger finger, left ring finger: Status: Acute Plan Patient is here today to discuss and request surgery for a left carpal tunnel release and left ring finger A1 octavio release. On exam today she does have palpable triggering of her left ring finger that she has had for 6 months now. We did discuss steroid injection option versus A1 octavio release. I spoke with patient that I can do both a carpal tunnel release and left ring finger trigger finger release at the same time but she would be at high risk for stiffness after surgery. She understands this and would like to proceed. I would recommend she get a platform attachment for her walker like she did last time when we did the right side as I do not want her bearing weight through the incisions after surgery and she is very reliable on her walker for ambulation. I did review risks today with patient including risk of bleeding infection nerve artery tissue damage need of further surgery continued pain incisional hypersensitivity postoperative restrictions and continued symptoms. We will go ahead with a tentative surgery date of July 22 for left open carpal tunnel release and left ring finger A1 octavio release. She should also avoid taking any NSAIDs 7 days before surgery. Follow up at 2 weeks post-op or sooner if pain, swelling, numbness or associated symptoms, or concerns develop. All questions answered. Patient in agreement of plan. Clinical Quality Measures Falls Risk Screening/Assistive Devices Have you fallen in the past year?: No 06/25/25 1149 <Electronically signed by Orion Diaz DO> Date Orion Diaz DO I have examined the patient and the H&P has been reviewed. There are no clinical changes since date of exam.
--- NOTE | 2025-07-22 07:32 | PCM.PRE.AN2 ---
ASA Classification* ASA Classification ASA Classification: 3 Assessment & Plan Anesthesia* Anesthesia Assessment Anesthesia Assessment: Discussed sedation and/or anesthesia options, risks, benefits, and alternatives with patient/parents/legal guardian/POA. Questions invited. The patient/parents/legal guardian/POA seems to understand and agrees to proceed with anesthesia plan. Reviewed the physical assessment, medical history, allergy history and patient home medications list prior to surgery/procedure/anesthetic and documented any changes. Performed airway and anesthesia risk assessments. Anesthesia Type Anesthesia Type: MAC (General backup) Anesthesia Focused Assessment* Temperature: 98.0 F Pulse Rate: 89 Blood Pressure: 134/85 Respiratory Rate: 18 Pulse Ox: 97 Airway Assessment Mouth opens: >3 cm Mallampati Score: II Labs Anesthesia Preop lab: CBC WBC 9.5 K/mm3 (4.4-11.0) 08/04/22 10:12 08/04/22 RBC 4.84 M/mm3 (4.2-5.4) 08/04/22 10:12 08/04/22 Hgb 14.5 g/dL (12.0-15.0) 08/04/22 10:12 08/04/22 Hct 46.7 % (37-47) 08/04/22 10:12 08/04/22 Plt Count 231 K/mm3 (150-450) 08/04/22 10:12 08/04/22 CHEMISTRY Potassium 3.7 mmol/L (3.5-5.1) 07/18/23 15:30 07/18/23 Sodium 141 mmol/L (136-145) 07/18/23 15:30 07/18/23 BUN 20 mg/dL (7-18) H 07/18/23 15:30 07/18/23 Creatinine 1.46 mg/dL (0.55-1.02) H 07/18/23 15:30 07/18/23 Glucose 146 mg/dL (74-106) H 07/18/23 15:30 07/18/23 POC Glucose 112 mg/dL (70-110) H 07/09/19 09:55 07/09/19 TSH 3.22 uIU/mL (0.358-3.74) 03/12/24 12:01 03/12/24 COAG PT 15.0 SECONDS (11.7-14.9) H 07/12/19 12:25 07/12/19 Pre-Assessment Diagnosis/Proposed Procedure Planned Operative Procedure(s): Left open Carpal Tunnel Release and left ring finger trigger release Anesthesia History 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 When Was Last Pacemaker Check QUESTION #4 FULL TEXT: You/Your Family Experience fever (hyperthermia) with Anesthesia Last Oral Intake Last Oral intake: Last Oral Intake NPO since 06:00 07/22/25 07:17 Meds taken in AM with sips of Yes 07/22/25 07:17 water? 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 Female Yes 07/08/25 09:23 HX of Motion Sickness No 07/08/25 09:23 HX of N/V After Surgery No 07/08/25 09:23 Non-Smoker Yes 07/08/25 09:23 Duration of Surgery greater No 07/08/25 09:23 than 60 minutes Number of Risk Factors 2 07/08/25 09:23 PONV Score Moderate Risk 07/08/25 09:23 Height & Weight Height & Weight: Anesthesia: Height & Weight Height 5 ft 7 in 07/22/25 07:17 Weight: 80.6 kg 07/22/25 07:17 Body Mass Index (BMI) 27.8 07/22/25 07:17 Respiratory Assessment Respiratory Assessment - tenon machine operator: Respiratory Tract Infection Hx - tenon machine operator Hx Respiratory Tract Infection No 07/08/25 09:23 STOP Sleep Apnea STOP Sleep Apnea - tenon machine operator: STOP Sleep Apnea - tenon machine operator Hx Hypertension Yes: PER PT, CONTROLLED ON 07/08/25 09:23 MEDS Hx Sleep Apnea No 07/08/25 09:23 CPAP No 07/08/25 09:23 BIPAP Do you snore loudly (louder No 07/08/25 09:23 than talking or can be heard Do you often feel tired/ No 07/08/25 09:23 fatigued/ sleepy during daytime? Has anyone observed you stop No 07/08/25 09:23 breathing during sleep? STOP Results Negative 07/08/25 09:23 QUESTION #5 FULL TEXT : Do you snore loudly (louder than talking or can be heard through closed doors)? 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 Specify any problems Hx of Preganancy in last 3 No 07/08/25 09:23 Months Nurse Filling Out Transfusion [email or web address] 07/08/25 09:23 & Questions: Date: 07/08/25 07/08/25 09:23 Time: 09:28 07/08/25 09:23 Patient unable to answer at this time (ie. confused, unrespo /Reproduction History /Reproductive History - tenon machine operator: /Reproductive Hx- tenon machine operator Hx Now No 07/08/25 09:23 Gestational Age (in weeks): EDC: Hx Hx Para Hx Section SAB No 07/08/25 09:23 Active Medications Active Medications: Current Medications Generic Name Dose Route Start Last Admin Trade Name Freq PRN Reason Stop Dose Admin Cefazolin Sodium 2 gm/ Sodium 110 mls @ 200 mls/hr 07/22/25 09:00 Chloride IV 07/22/25 09:32 INTRAOP ONE Lactated Ringer's 1,000 mls @ 15 mls/hr 07/22/25 07:00 07/22/25 07:21 IV 15 mls/hr .Q48H ROBERTO Administration PFSH Medical History (Updated 07/08/25 @ 09:37 by Rosalia Woodall) Gout Wears glasses Cancer Post-menopausal Anxiety Thyroid disease Bladder disease Walker as ambulation aid Arthritis Back pain Injury of head and neck Former smoker Shortness of breath on exertion History of pain when walking History of echocardiogram Hypertension COPD (chronic obstructive pulmonary disease) Home Medications ?Medication ?Instructions ?Recorded ?Last Taken ?Type fluticasone 232 mcg-salmeterol 14 1 puff IH Q12 07/24/19 02/18/25 05:15 Rx mcg/actuation breath activated powdr levothyroxine 75 mcg tablet 75 mcg PO DAILY@0600 07/24/19 07/22/25 06:00 Rx multivitamin with folic acid 400 1 tab PO DAILY@0800 07/24/19 02/16/25 Rx mcg tablet hydrochlorothiazide 12.5 mg tablet 12.5 mg PO QDAY 01/06/25 02/17/25 History losartan 50 mg tablet 50 mg PO QDAY 01/06/25 07/22/25 06:00 History calcium carbonate (Calcium 600) 600 mg PO DAILY 02/14/25 02/16/25 History vitamins A,C,M-ezsr-bjcbiy 4,296 1 cap PO BID 02/14/25 02/17/25 History mcg-226 mg-90 mg capsule (PreserVision AREDS) amoxicillin 500 mg tablet 500 mg PO ONCE PRN before dental 02/18/25 Unknown History procedure amoxicillin 500 mg tablet 2,000 mg (4 x 500 mg) PO ONCE #4 05/23/25 Unknown Rx tabs allopurinol 300 mg tablet 300 mg PO DAILY 07/08/25 Unknown History Allergy/AdvReac Type Severity Reaction Status Date / Time No Known Allergies Allergy Verified 07/22/25 07:16 Family History Mother CVA (cerebral vascular accident) Brother Kidney disease Aneurysm Not sure what type, 1970 Surgical History History of carpal tunnel release Hx of right cataract extraction Hx of left cataract extraction Hx of colonoscopy Hx of varicose vein ligation and stripping Hx of hemorrhoidectomy Hx of total knee arthroplasty h/o left knee scope History of hysterectomy Social History Smoking Status: Former smoker pack-years: 57 alcohol intake: never Review of Systems (Anesthesia) ROS Narrative System reviewed and no additional complaints, except as documented.
[2025-07-22] MEDS: Cefazolin 1 GM/5 ML Vial 2 GM IV (08:32)
[2025-07-22] MEDS: Midazolam 2 MG/2 ML Syringe IV (08:42)
[2025-07-22] MEDS: fentaNYL 100 MCG/2 ML Ampul 50 MCG IV (08:50)
[2025-07-22] MEDS: Bupiv/Epi 0.25% 30 ML Vial (09:03)
--- NOTE | 2025-07-22 09:14 | OP.PCM_ITS ---
Operative Report (Standard) Operative Information Date of Procedure: 07/22/25 Pre-Operative Diagnosis: left hand carpal tunnel syndrome and ring finger trigger finger Post-Operative Diagnosis: same Surgery/Procedure Performed: Left carpal tunnel release open and left ring finger A1 ocatvio release desktop support associate: Yes Nuclear Medicine Pet Ct Technologist: Hugo Ramos Tasks completed by executive assistant to president: Opening & closing Type of Anesthesia: Local MAC RN Documented Start/Stop Times: Operation Date: 07/22/25 08:30 Case Time Into Pre-Op 07/22/25 06:45 Out of Pre-Op 07/22/25 08:25 Anesthesia Start 07/22/25 08:29 Into Room 07/22/25 08:29 Procedure Start 07/22/25 08:49 Procedure End 07/22/25 09:08 Procedure Start Time: 08:49 Procedure Stop Time: 09:08 Select all DRAINS/GRAFTS/IMPLANTS that apply: None Estimated Blood Loss: 0 Specimen collected: No Description of surgery: Preoperative diagnosis; [left] carpal tunnel syndrome and left ring finger trigger finger Postoperative diagnosis; same Procedure: [left] open carpal tunnel release and left ring digit A1 octavio release Anesthesia: Local with MAC Tourniquet time; [18] minutes 250 mm Hg Complications: None Indication for procedure; This is a 84-year-old [female] with long-standing symptoms consistent with carpal tunnel syndrome the patient did have electrodiagnostic evidence of this and has failed conservative treatment. In addition she was having triggering of her ring digit, risks benefits and alternatives were reviewed including risks of bleeding infection nerve artery ti ssue damage need for further surgery and continued pain and symptoms, hypersensitivity to scar and Pillar pain. Procedure; 1.) The patient was met in the preoperative holding area the operative extremity was identified by both patient and physician and was marked the patient was met by anesthesia and brought back to the operating room and transferred to the operating table in the supine position. Anesthesia was started. A well-padded tourniquet was placed on the operative upper extremity. The patient was prepped and draped in the usual sterile fashion. A timeout was called to ensure the proper patient procedure and extremity were being contemplated. 0.5 percent [ Lidocaine] with epinephrine was injected into the incisional area. An Esmarch was used to exsanguinate the extremity. The tourniquet was inflated to 250 mmHg. A midline incision was made with a 15 blade scalpel between the thenar and hypothenar eminence. This was carried down through the skin and subcutaneous tissue. Chester retractors were then used, a deep blade scalpel was used to make a deep incision in the palmar aponeurosis. The chester retractors were then placed deep to this and the transverse carpal ligament was identified a perforation was made with a scalpel and a Littler scissors were used to complete the release of the transverse carpal ligament distally under direct visualization with the tips facing ulnarly until the perivascular fat was reached. Then turning our attention proximally using a tension slide technique the proximal extent of the transverse carpal ligament was released . There was noted to be [hourglass configuration to the median nerve and hypertrophy of the transverse carpal ligament without other findings]. The wound was thoroughly irrigated and was closed with 4-0 nylon vertical mattress stitches. 2.)15 blade scalpel was used to make a longitudinal incision directly over the A1 octavio was carried down through the subcutaneous tissue Chester retractors placed radial and ulnar protecting the digital nerves and a Ragnell retractor was used at the apex of the incision under direct visualization a deep blade scalpel was used to release the A1 octavio. The wound was thoroughly irrigated and closed with 4-0 nylon vertical mattress edges. Dressing was applied to both incisions in the form of Xeroform 4 x 4 web roll and an Rajan wrap. Patient tolerated the procedure well was brought back to the PACU in stable condition. All counts were correct. Surgical Findings: As above Complications Complications: No
--- NOTE | 2025-07-22 09:17 | DCINST_ITS ---
Discharge Instructions Diet Discharge Diet: No restrictions Dressing / Incision Call your doctor if you observe: Shortness of breath and Chest pain Additional Dressing/Incision Instructions:: Ice and elevate operative extremity next 72 hours. Keep dressing on clean and dry for 72 hours then may remove and allow warm soapy water to rinse over incision but do not submerge until sutures are out. Then apply bandaid over incision and change daily. encourage finger range of motion. Not lift more than 1/2 pound. Minimize narcotic use only as needed and directed, may use OTC NSAID and Tylenol to supplement/substitute for pain control. Follow Up Care Please Follow Up With: Orion Diaz DO When: 2 weeks Test Results: Test results from this visit will be discussed in further detail at your follow- up appointment, if applicable. Discharge Plan Admission Primary Reason for Your Visit: Left carpal tunnel release and left trigger finger ring Attending Provider: Orion Diaz Primary Care Provider: Katherin Aguirre Instructions Print Language: Palestinian Discharge Orders/Prescriptions Prescriptions: New hydrocodone-acetaminophen 5-325 mg tablet 1 tab PO Q4H PRN (Reason: pain) 4 Days Qty: 7 0RF No Action hydrochlorothiazide 12.5 mg tablet 12.5 mg PO QDAY losartan 50 mg tablet 50 mg PO QDAY levothyroxine 75 MCG tablet 75 mcg PO DAILY@0600 0RF multivitamin with folic acid 1 TABLET tablet 1 tab PO DAILY@0800 0RF fluticasone propion-salmeterol 1 PUFF inhaler 1 puff IH Q12 0RF calcium carbonate [Calcium 600] 600 mg calcium (1,500 mg) tablet 600 mg PO DAILY PreserVision AREDS 4,296 mcg-226 mg-90 mg capsule 1 cap PO BID amoxicillin 500 mg tablet 500 mg PO ONCE PRN (Reason: before dental procedure) Rx Instructions: take 4 tabs within 1 hr prior to dental procedure. allopurinol 300 mg tablet 300 mg PO DAILY amoxicillin 500 mg tablet 2,000 mg PO ONCE Qty: 4 2RF Rx Instructions: take 4 tabs within 1 hr prior to dental procedure. Referrals / Follow Up: Katherin Aguirre MD [Primary Care Provider] - Disposition Disposition (needs filled in before D/C Order can be placed): Home, Self Care
--- NOTE | 2025-07-22 09:25 | PCM.POST.ANE ---
Anesthesia: Postop Eval I Current Vital Signs Temperature: 97.6 F Pulse Rate: 91 Blood Pressure: 103/57 Respiratory Rate: 16 Pulse Ox: 98 Oxygen Delivery Method: Room Air Assessment Airway patent: Yes Spontaneous unlabored respirations: Yes Mental status: Awake and Calm nausea: No Vomiting: No Anesthesia Complication: No Fluid Hydration Crystalloid volume administer (ml): 200 Total IV fluid infused: 200 Progress Note Anesthesia document: Postop Eval 1 completed: Yes
--- NOTE | 2025-07-22 15:12 | POSTOPAN2_ITS ---
Anesthesia Postop Eval I Sum Postop Eval Completion status Anesthesia document: Postop Eval 1 completed: Yes Anesthesia Postop Eval I Summary Anesthesia Postop Eval I Summary: Anesthesia Postop Eval I: Assessment Summary Airway patent Yes 07/22/25 09:25 [email or web address] Spontaneous unlabored Yes 07/22/25 09:25 [email or web address] [email or web address] respirations Mental status Awake,Calm 07/22/25 09:25 [email or web address] nausea No 07/22/25 09:25 CLOTH BOOKER.[email or web address] Vomiting No 07/22/25 09:25 [email or web address] [email or web address] Anesthesia Postop Eval I: Fluid Summary Crystalloid volume administer 200 07/22/25 09:25 CLOTH [email or web address] (ml) Colloids volume administered ( ml) Blood Product volume administered (ml) Total IV fluid infused 200 07/22/25 09:25 [email or web address] [email or web address] Anesthesia Postop Eval I: Summary Notes Anesthesia Complication No 07/22/25 09:25 [email or web address] Anesthesia Complication Comment: Post-operative progress note Anesthesia: Postop Eval II Evaluation Mental status: Awake and Calm Pain Level: 0 nausea: No Vomiting: No Complications Anesthesia Complication: No
--- NOTE | 2025-07-22 15:12 | PCM.POSTANE2 ---
Anesthesia Postop Eval I Sum Postop Eval Completion status Anesthesia document: Postop Eval 1 completed: Yes Anesthesia Postop Eval I Summary Anesthesia Postop Eval I Summary: Anesthesia Postop Eval I: Assessment Summary Airway patent Yes 07/22/25 09:25 [email or web address] Spontaneous unlabored Yes 07/22/25 09:25 [email or web address] [email or web address] respirations Mental status Awake,Calm 07/22/25 09:25 [email or web address] nausea No 07/22/25 09:25 MARITIME GUARD.[email or web address] Vomiting No 07/22/25 09:25 [email or web address] Anesthesia Postop Eval I: Fluid Summary Crystalloid volume administer 200 07/22/25 09:25 [email or web address] (ml) Colloids volume administered ( ml) Blood Product volume administered (ml) Total IV fluid infused 200 07/22/25 09:25 [email or web address] [email or web address] Anesthesia Postop Eval I: Summary Notes Anesthesia Complication No 07/22/25 09:25 [email or web address] [email or web address] Anesthesia Complication Comment: Post-operative progress note Anesthesia: Postop Eval II Evaluation Mental status: Awake and Calm Pain Level: 0 nausea: No Vomiting: No Complications Anesthesia Complication: No
== END 2025-07-22 10:55 | disposition home or self-care (01) ==
LOC: SDC 06:36 → AC 06:38
PROVIDERS: PCP Family Medicine; Referring Provider Orthopaedic Surgery; Visit Provider Orthopaedic Surgery
PROC: (CPT 64721; principal; 2025-07-22 08:15)
DX: G56.02 Carpal tunnel syndrome, left upper limb (principal); J44.9 Chronic obstructive pulmonary disease, unspecified; M65.342 Trigger finger, left ring finger; Z79.890 Hormone replacement therapy; I10 Essential (primary) hypertension; Z87.891 Personal history of nicotine dependence; Z79.899 Other long term (current) drug therapy
CPT/HCPCS: 64721; 26055; 01810; J2405